=== PATIENT | female | born 1955 | race Caucasian/White ===

== ENCOUNTER → 2017-02-20 | Outpatient (CLI) | payer BC ==
[~2017-02-20] MED LIST: ATEN50TA8 PO
--- NOTE | 2017-02-20 15:38 | MAMMOGRAPHY REPORT ---
BILATERAL DIGITAL SCREENING MAMMOGRAM WITH CAD: 02/20/2017 CLINICAL HISTORY: Routine screening. Patient has no complaints. TECHNIQUE: Current study was also evaluated with a Computer Aided Detection (CAD) system. Bilatera l CC and MLO views were obtained. COMPARISON: Comparison is made to exams dated: 12/15/2015 mammogram and 03/23/2013 mammogram - [facility]. BREAST COMPOSITION: The tissue of both breasts is heterogeneously dense, which may obscure small ma sses. FINDINGS: No suspicious masses, calcifications, or areas of architectural distortion are noted in e ither breast. There has been no significant interval change compared to prior exams. IMPRESSION: ACR BI-RADS CATEGORY 1: NEGATIVE There is no mammographic evidence of malignancy. A 1 year screening mammogram is recommended. The p atient will receive written notification of the results. Approximately 10% of breast cancers are not detected with mammography. A negative mammographic repor t should not delay biopsy if a clinically suggestive mass is present. Marycruz Lee M.D. ah/:02/20/2017 12:15:16 Supervisor Of Guidance And Testing: Lena Lau RT(R)(M), [facility] letter sent: Normal 1/2 BI-RADS Code: ACR BI-RADS Category 1: Negative
== END | disposition home or self-care (01) ==
LOC: C.MAMM 10:37
PROVIDERS: ATTEND Physician Assistant
DX: Z12.31 Encounter for screening mammogram for malignant neoplasm of breast (principal)

== ENCOUNTER → 2017-02-20 | Outpatient (CLI) | payer BC ==
--- NOTE | 2017-02-21 03:42 | EXERCISE STRESS TEST ---
REFERRING PHYSICIAN: Kiersten Wilkes. FINDINGS: The patient exercised using a standard Doug protocol for 9 minutes and 30 seconds. She achieved a maximum heart rate of 164 beats per minute which represented 103% of the maximal age predicted heart rate. Baseline EKG was normal and there were no significant EKG changes during exercise. The patient had no symptoms during exercise. There was a very brief episode of an atrial tachycardia lasting for approximately 3 seconds, that was asymptomatic. The patient's blood pressure response to exercise was hypertensive. Das treadmill score was 9 which represents low risk. IMPRESSION: 1. Hypertensive response to exercise. 2. Self-limited asymptomatic episode of atrial tachycardia lasting 3 seconds. 3. No evidence of inducible ischemia.
== END | disposition home or self-care (01) ==
LOC: C.CPL 09:25
PROVIDERS: ATTEND Physician Assistant
DX: R07.89 Other chest pain (principal); Z12.31 Encounter for screening mammogram for malignant neoplasm of breast

== ENCOUNTER → 2018-01-16 | Outpatient (CLI) | payer BC ==
--- NOTE | 2018-01-16 11:21 | DIAGNOSTIC IMAGING REPORT ---
CHEST 2 VIEWS ROUTINE HISTORY: COUGH COMPARISON: None. FINDINGS: The heart is normal in size. The lungs are mildly hyperexpanded. No pleural fusions. No pneumothorax. Subtle nodular density within the right lung base which measures 2.4 cm. This most likely represents overlying nipple shadow. Otherwise, the lungs are clear. IMPRESSION: 1. No focal lung consolidations to suggest pneumonia. 2. Subtle nodular density within the right lung base which measures 2.4 cm. This most likely represents overlying nipple shadow. However, repeat chest x-ray with nipple markers is recommended for confirmation. These findings were called/faxed to the referring physician's office. Electronically signed by: Ibrahima Bean M.D. 01/16/2018 11:20 AM Dictated Date/Time: 01/16/2018 11:16 AM
--- NOTE | 2018-01-16 13:15 | DIAGNOSTIC IMAGING REPORT ---
CHEST 2 VIEWS ROUTINE CLINICAL HISTORY: 62 years-old Female presenting with STANDARD CHEST X-RAY ABNORMAL, COUGH NOS. TECHNIQUE: PA and lateral views of the chest were obtained. COMPARISON: 01/16/2018 at 11:00 AM. FINDINGS: Atherosclerosis of the aortic arch. Cardiac silhouette normal in size. Lungs mildly hyperinflated. No focal opacity. No large effusion or pneumothorax. Degenerative changes of the thoracic spine. Upper abdomen normal. IMPRESSION: 1. Hyperinflation could suggest underlying emphysema. Otherwise no acute cardiopulmonary disease. 2. The previously suggested nodular opacity at the right lung base is consistent with a nipple shadow. Electronically signed by: Ken Ivory M.D. 01/16/2018 1:14 PM Dictated Date/Time: 01/16/2018 1:13 PM
== END | disposition home or self-care (01) ==
LOC: C.RAD 10:47
PROVIDERS: ATTEND Physician Assistant
DX: R05 Cough (principal); R91.8 Other nonspecific abnormal finding of lung field

== ENCOUNTER 2018-06-03 18:00 | Inpatient (IN) | payer BC ==
[~2018-06-03] VITALS: Ht 157.5 cm; Wt 51.5 kg
[2018-06-03] MEDS ORDERED: SODIUM CHLORIDE 0.9% 1000ML 1,000 ML IV STA (18:14)
[2018-06-03] MEDS ORDERED: ASCO10003 PO ×2 (18:41)
[2018-06-03] MEDS ORDERED: ASPI81TA28 PO ×2 (18:41)
[2018-06-03] MEDS ORDERED: THIA50TA3 PO ×2 (18:41)
[2018-06-03] MEDS ORDERED: VITA1TAB4 PO ×2 (18:41)
[2018-06-03 18:49] LABS: BASO % 0.5 %; BASO ABS # 0.04 K/uL (0-0.2); EOS % 0.5 %; EOS ABS # 0.04 K/uL (0-0.5); HEMATOCRIT 38.4 % (37-47); HEMOGLOBIN 13.2 g/dL (12.0-16.0); IG# 0.01 K/uL (0.00-0.02); LYMPH % 23.4 %; LYMPH ABS # 1.97 K/uL (1.2-3.4); MEAN CELL VOLUME 96.2 fL (80-100); MEAN CORPUSCULAR HEMOGLOBIN 33.1 pg (25-34); MEAN CORPUSCULAR HGB CONC 34.4 g/dl (32-36); MEAN PLATELET VOLUME 10.9 fL (7.4-10.4); MONO % 10.7 %; NEUT % 64.8 %; NEUT ABS # 5.45 K/uL (1.4-6.5); PLATELET COUNT 225 K/uL (130-400); RED CELL DISTRIBUTION WIDTH CV 12.9 % (11.5-14.5); RED CELL DISTRIBUTION WIDTH SD 45.1 fL (36.4-46.3); WHITE BLOOD COUNT 8.41 K/uL (4.8-10.8)
[2018-06-03] MEDS ORDERED: ATEN50TA8 PO ×2 (18:58)
[2018-06-03 19:22] LABS: POTASSIUM 3.6 mmol/L (3.5-5.1)
[2018-06-03 19:23] LABS: ALBUMIN 3.7 gm/dl (3.4-5.0); CALCIUM 9.4 mg/dl (8.5-10.1); CREATININE 0.72 mg/dl (0.60-1.20); TOTAL PROTEIN 7.5 gm/dl (6.4-8.2)
[2018-06-03] MEDS ORDERED: HEPARIN IV LOW DOSE NO BOLUS STA (20:23)
[2018-06-03 20:29] VITALS: O2SAT 97; Ht 157.5 cm; Wt 51.5 kg
--- NOTE | 2018-06-03 20:35 | History and Physical ---
History & Physical Date & Time of Service: Jun 03, 2018 at 20:35 Chief Complaint: Scan Today Found Clot In Stomach, Referred Primary Care Physician: Kiersten Wilkes PA-C History of Present Illness Source: patient, hospital records The patient is a 63-year-old female who presents to the emergency department after outpatient testing showed a possible clot in her abdomen and possible gallbladder cancer. She had been having intermittent stomach pain for over a year that become more constant and severe, accompanied by nausea but no vomiting. She has a history of hepatitis C that was treated successfully 3 years ago. Past Medical/Surgical History Medical Problems: (1) Liver mass (2) Portal vein thrombosis Family History Noncontributory Social History Smoking Status: Current Every Day Smoker Smokeless Tobacco Use: No Alcohol Use: none Drug Use: none Immunizations History of Influenza Vaccine: Unknown History of Tetanus Vaccine?: Unknown History of Pneumococcal: Unknown History of Hepatitis B Vaccine: Unknown Allergies Coded Allergies: No Known Allergies (Unverified , 01/23/10) Home Medications Scheduled Ascorbic Acid (Vitamin C), 1,000 MG PO DAILY Aspirin (Aspirin Ec), 81 MG PO DAILY Atenolol (Tenormin), 50 MG PO DAILY Thiamine Hcl (Vitamin B-1), 50 MG PO DAILY Vitamin E (Vitamin E), 400 INTER.UNIT PO DAILY Review of Systems The patient denies chest pain, palpitations, shortness of breath, dyspnea on exertion, cough, lower extremity swelling, sore throat, fevers, chills, sweats, weight change, vomiting, diarrhea , constipation, blood in urine or stool, dysuria, urinary frequency or urgency, lightheadedness , dizziness, headache, memory loss, loss of consciousness, rash, abnormal bruising or bleeding, imbalance, focal or generalized weakness, numbness or tingling in arms or legs, generalized arthralgias or myalgias, back or neck pain, or night sweats. The review of systems is otherwise negative other than for that already noted above, and at least 10 systems have been reviewed. Physical Exam Vital Signs Date Time Temp Pulse Resp B/P (MAP) Pulse Ox O2 Delivery O2 Flow Rate FiO2 06/03/18 19:32 61 18 142/74 97 06/03/18 18:05 36.7 70 20 174/89 96 Room Air The patient is awake, alert and oriented 3, well developed and well nourished, normocephalic and atraumatic, lying in bed and in no acute distress. HEENT--PERRL, EOMI, mucous membranes and oropharynx dry. Neck--supple. No JVD. No bruits. Thyroid normal, trachea midline, no adenopathy. Heart--normal S1 and S2. No murmurs, rubs or gallops. Lungs--clear bilaterally, no respiratory distress, no accessory muscle use. Abdomen--normal bowel sounds and soft. Mild epigastric and right upper quadrant tendeness. Nondistended. Extremities--no cyanosis or clubbing. No edema. There are good distal pulses b/ l. Dermatologic--normal skin turgor, normal color, no abnormal lymph nodes, no rash. Neurologic--cranial nerves II through XII grossly intact. Rheumatologic--normal range of motion. Psychiatric--normal affect. Diagnostics Laboratory Results Results Past 24 Hours Test 06/03/18 18:37 06/03/18 19:39 Range/Units White Blood Count 8.41 4.8-10.8 K/uL Red Blood Count 3.99 4.2-5.4 M/uL Hemoglobin 13.2 12.0-16.0 g/dL Hematocrit 38.4 37-47 % Mean Corpuscular Volume 96.2 80-100 fL Mean Corpuscular Hemoglobin 33.1 25-34 pg Mean Corpuscular Hemoglobin Concent 34.4 32-36 g/dl Platelet Count 225 130-400 K/uL Mean Platelet Volume 10.9 7.4-10.4 fL Neutrophils (%) (Auto) 64.8 % Lymphocytes (%) (Auto) 23.4 % Monocytes (%) (Auto) 10.7 % Eosinophils (%) (Auto) 0.5 % Basophils (%) (Auto) 0.5 % Neutrophils # (Auto) 5.45 1.4-6.5 K/uL Lymphocytes # (Auto) 1.97 1.2-3.4 K/uL Monocytes # (Auto) 0.90 0.11-0.59 K/uL Eosinophils # (Auto) 0.04 0-0.5 K/uL Basophils # (Auto) 0.04 0-0.2 K/uL RDW Standard Deviation 45.1 36.4-46.3 fL RDW Coefficient of Variation 12.9 11.5-14.5 % Immature Granulocyte % (Auto) 0.1 % Immature Granulocyte # (Auto) 0.01 0.00-0.02 K/uL Prothrombin Time 10.6 9.0-12.0 SECONDS Prothromb Time International Ratio 1.0 0.9-1.1 Sodium Level 137 136-145 mmol/L Potassium Level 3.6 3.5-5.1 mmol/L Chloride Level 104 98-107 mmol/L Carbon Dioxide Level 24 21-32 mmol/L Anion Gap 10.0 3-11 mmol/L Blood Urea Nitrogen 11 7-18 mg/dl Creatinine 0.72 0.60-1.20 mg/dl Est Creatinine Clear Calc Drug Dose 62.5 ml/min Estimated GFR () 102.6 Estimated GFR (Non- 88.5 BUN/Creatinine Ratio 14.8 10-20 Random Glucose 89 70-99 mg/dl Calcium Level 9.4 8.5-10.1 mg/dl Total Bilirubin 1.0 0.2-1 mg/dl Direct Bilirubin 0.7 0-0.2 mg/dl Aspartate Amino Transf (AST/SGOT) 268 15-37 U/L Alanine Aminotransferase (ALT/SGPT) 302 12-78 U/L Alkaline Phosphatase 321 45-117 U/L Total Protein 7.5 6.4-8.2 gm/dl Albumin 3.7 3.4-5.0 gm/dl Lipase 219 73-393 U/L Chemistry Specimen Hemolysis Urine Color YELLOW Urine Appearance CLEAR CLEAR Urine pH 6.5 4.5-7.5 Urine Specific [place] 1.007 1.000-1.030 Urine Protein NEG NEG Urine Glucose (UA) NEG NEG Urine Ketones NEG NEG Urine Occult Blood NEG NEG Urine Nitrite NEG NEG Urine Bilirubin NEG NEG Urine Urobilinogen NEG NEG Urine Leukocyte Esterase NEG NEG Urine Test NEG NEG Diagnostic Radiology Patient Name: DANIEL ROBERTS Unit Number: [id number] Dictated: 06/03/181302 Transcribed: 06/03/181302 EV Printed Date/Time: [~ rep prt dt]/[~ rep prt tm] [~ rep ct labl] - [~ rep ct ivnm] [facility] [place] [address] Dictated: 08/22/18 1303 Transcribed: 06/03/18 1303 EV Printed Date/Time: [~ rep prt dt]/[~ rep prt tm] [~ rep ct labl] - [~ rep ct ivnm] [~ rep ct add3]] CT SCAN OF THE ABDOMEN AND PELVIS WITH IV CONTRAST CLINICAL HISTORY: Generalized abdominal pain. COMPARISON STUDY: No priors. TECHNIQUE: Following the IV administration of 90 cc of Optiray 320, CT scan of the abdomen and pelvis is performed from the lung bases to the proximal femora. Images are reviewed in the axial, sagittal, and coronal planes. IV contrast was administered without complication. A dose lowering technique was utilized adhering to the principles of ALARA. CT DOSE: 261.68 mGycm FINDINGS: Lung bases: The heart is normal in size and without pericardial effusion. The coronary arteries are densely calcified. The lung bases are clear noting dependent atelectasis. Liver: The contrast-enhanced liver is normal in size and contour. There is moderate intrahepatic biliary ductal dilatation identified in the left lobe. Mild biliary ductal dilatation is seen in the right lobe. The left lobe appears atrophic and heterogeneous.. The hepatic veins are patent. The main portal vein and the right portal vein are patent. The left portal vein is thrombosed. Gallbladder: The gallbladder is normal in appearance and common bile duct is normal in caliber. Spleen: Normal in size and attenuation. Pancreas: Unremarkable. Adrenal glands: Unremarkable. Kidneys: The contrast enhanced kidneys are normal in size and without hydronephrosis. The kidneys enhance symmetrically. Abdominal vasculature: The abdominal aorta is normal in course and caliber noting mild atherosclerotic calcification. Bowel: Moderate fecal retention is noted in the right colon. No bowel obstruction is seen. The appendix is well-visualized and normal. Peritoneum: There is no intraperitoneal free air or abdominal ascites. There is a small fat-containing umbilical hernia. Lymphadenopathy: There are prominent lymph nodes in the deandre hepatis and portacaval region. A portacaval node on image #129 measures 9 mm short axis. A gastrohepatic node on image #97 measures 8 mm in short axis. Pelvic viscera: The bladder, uterus, and adnexa are normal as visualized. Skeletal structures: The skeletal structures are osteopenic. Mild lumbosacral spondylosis is observed. No lytic or blastic lesions are seen. IMPRESSION: 1. There is asymmetric intrahepatic biliary ductal dilatation involving the left lobe of the liver as compared to the right. The left lobe appears somewhat diminutive and heterogeneous and the left portal vein is thrombosed. The appearance is highly concerning for an obstructing mass lesion such as a cholangiocarcinoma. GI consultation and ERCP is recommended for further assessment. 2. Prominent lymph nodes in the deandre hepatis and gastrohepatic space are nonspecific but concerning. 3. Moderate fecal retention is noted in the right colon. 4. Additional findings as above. Electronically signed by: Meño Howe M.D. 06/03/2018 1:16 PM Dictated Date/Time: 06/03/2018 1:03 PM The status of this report is Signed. Draft = Not yet reviewed or approved by Radiologist. Signed = Reviewed and approved by Radiologist. <AttendingPhy>Kiersten Wilkes PA-C</AttendingPhy> <FamilyPhy>Kiersten Wilkes PA-C</FamilyPhy> <PrimaryPhy>Kiersten Wilkes PA-C</PrimaryPhy> < UnitNumber>[id number]</UnitNumber> <VisitNumber>[id number]</VisitNumber> < PatientName>DANIEL ROBERTS Cynthia</PatientName> <DateOfBirth>1955</DateOfBirth> < Location>[facility]</Location> <ServiceDate>06/03/18</ServiceDate> <MNE>ESINDI</MNE> <OrderingPhy>Kiersten Wilkes PA-C</OrderingPhy> <OrderingPhyMNE>f rep ord dr seymour</OrderingPhyMNE> <DictatingPhyMNE>f rep dict dr seymour</DictatingPhyMNE> < CCListMNE>f rep ct mne</CCListMNE> <AdmittingPhyMNE>f pt admit dr seymour</ AdmittingPhyMNE> <AttendingPhyMNE>f pt attend dr seymour</AttendingPhyMNE> <ConsultingPhyMNE>f pt consult dr seymour</ConsultingPhyMNE> <FamilyPhyMNE>f pt fam dr seymour</FamilyPhyMNE> <OtherPhyMNE>f pt other dr seymour</OtherPhyMNE> < PrimaryPhyMNE>f pt prim care dr seymour</PrimaryPhyMNE> <ReferringPhyMNE>f pt referring dr seymour</ReferringPhyMNE> Impression Assessment and Plan Possible liver mass/portal vein thrombosis/enlarged lymph nodes/abnormal liver test/history of treated hepatitis C-- Patient will be admitted to the medical floor. NPO NSS + KCl 20 mEq at 100 ML's per hour. Serial CBC with differential, chemistry profile and magnesium level. Begin heparin drip low-dose no bolus. MRCP has been ordered by the ED. Consult gastroenterology Dr. Lizeth Rowe. Pantoprazole 40 mg IV daily. Zofran 4 mg IV every 6 hours as needed. Advanced Directives Existing Advance Directive: No Existing Living Will: No Existing Power of Comb Fixer: No Resuscitation Status VTE Prophylaxis Will order VTE Prophylaxis: Yes Social Service Consult None Apply
[2018-06-03] MEDS ORDERED: HEPARIN 25000 UNIT/500 ML D5W ONE (20:36)
[2018-06-03] MEDS ORDERED: ONDANSETRON INJ 2 MG/ML 2 ML VIAL IV PRN (20:45)
[2018-06-03 20:52] LABS: PTT PATIENT 25.4 SECONDS (21.0-31.0)
[2018-06-03 21:00] VITALS: O2SAT 97
[2018-06-03 21:50] VITALS: BP 151/79; PULSE 63; TEMP 36.5; O2SAT 95
[2018-06-03 23:54] VITALS: BP 152/76; PULSE 61; TEMP 36.4; O2SAT 98
[2018-06-04] VITALS (10 sets, daily range): BP systolic 115–168; BP diastolic 65–78; PULSE 47–65; TEMP 36.3–36.8; O2SAT 95–98
--- NOTE | 2018-06-04 00:22 | EMERGENCY ROOM VISIT NOTE ---
History Report prepared by Lis: Taina Aldrich Under the Supervision of: Dr. Jeffery Jenkins D.O. First contact with patient: 18:08 Chief Complaint: ABNORMAL DIAGNOSTIC TESTING Stated Complaint: SCAN TODAY FOUND CLOT IN STOMACH, REFERRED History of Present Illness The patient is a 63 year old female who presents to the Emergency Room with a referral after an abdominal scan that showed a clot in the patient's abdomen as well as possible gallbladder cancer. The patient states that she got a scan of her stomach because she has been having pain for over a year. She states that this pain has been intermittent for this time but she now states is getting worse. The patient states that she is nauseous but denies any vomiting. She states that she has no fevers or urinary symptoms. She states that sometimes eating helps with her abdominal pain. The patient states she has a history of hypertension but states that she is not on any blood thinners. She also states that she has a history of Hepatitis C but that cleared up about three years ago. Source of History: patient Onset: prior to arrival Position: abdomen (clot ) Modifying Factors (Relieving): eating (relieves abdominal pain ) Associated Symptoms: + nausea, No fevers, No vomiting, No urinary symptoms Review of Systems See HPI for pertinent positives & negatives. A total of 10 systems reviewed and were otherwise negative. Past Medical & Surgical Medical Problems: (1) Hypertension (2) Liver mass (3) Portal vein thrombosis Social History Smoking Status: Current Every Day Smoker Current/Historical Medications Scheduled Ascorbic Acid (Vitamin C), 1,000 MG PO DAILY Aspirin (Aspirin Ec), 81 MG PO DAILY Atenolol (Tenormin), 50 MG PO DAILY Thiamine Hcl (Vitamin B-1), 50 MG PO DAILY Vitamin E (Vitamin E), 400 INTER.UNIT PO DAILY Allergies Coded Allergies: No Known Allergies (Unverified , 01/23/10) Physical Exam Vital Signs Date Time Temp Pulse Resp B/P (MAP) Pulse Ox O2 Delivery O2 Flow Rate FiO2 06/03/18 20:29 97 Room Air 06/03/18 19:32 61 18 142/74 97 06/03/18 18:05 36.7 70 20 174/89 96 Room Air Physical Exam GENERAL: Sitting up in bed, alert, well appearing, well nourished, no distress, non-toxic EYE EXAM: normal conjunctiva. OROPHARYNX: no exudate, no erythema, lips, buccal mucosa, and tongue normal and mucous membranes are moist NECK: supple, no nuchal rigidity, no adenopathy, non-tender LUNGS: Clear to auscultation. Normal chest wall mechanics HEART: no murmurs, S1 normal and S2 normal ABDOMEN: abdomen soft, normo-active bowel sounds, no masses, no rebound or guarding. Faint tenderness in right upper quadrant. BACK: Back is symmetrical on inspection and there is no deformity, no midline tenderness, no CVA tenderness. SKIN: no rashes and no bruising UPPER EXTREMITIES: upper extremities are grossly normal. LOWER EXTREMITIES: No pitting edema. NEURO EXAM: Normal sensorium, cranial nerves II-XII grossly intact, normal speech, no gross weakness of arms, no gross weakness of legs. Medical Decision & Procedures Laboratory Results 06/03/18 18:37 Red Blood Count 3.99, Mean Corpuscular Volume 96.2, Mean Corpuscular Hemoglobin 33.1, Mean Corpuscular Hemoglobin Concent 34.4, Mean Platelet Volume 10.9, Neutrophils (%) (Auto) 64.8, Lymphocytes (%) (Auto) 23.4, Monocytes (%) (Auto) 10.7, Eosinophils (%) (Auto) 0.5, Basophils (%) (Auto) 0.5, Neutrophils # (Auto ) 5.45, Lymphocytes # (Auto) 1.97, Monocytes # (Auto) 0.90, Eosinophils # (Auto ) 0.04, Basophils # (Auto) 0.04 06/03/18 18:37 Test 06/03/18 18:37 06/03/18 19:39 06/03/18 20:01 White Blood Count 8.41 K/uL (4.8-10.8) Red Blood Count 3.99 M/uL (4.2-5.4) Hemoglobin 13.2 g/dL (12.0-16.0) Hematocrit 38.4 % (37-47) Mean Corpuscular Volume 96.2 fL (80-100) Mean Corpuscular Hemoglobin 33.1 pg (25-34) Mean Corpuscular Hemoglobin Concent 34.4 g/dl (32-36) Platelet Count 225 K/uL (130-400) Mean Platelet Volume 10.9 fL (7.4-10.4) Neutrophils (%) (Auto) 64.8 % Lymphocytes (%) (Auto) 23.4 % Monocytes (%) (Auto) 10.7 % Eosinophils (%) (Auto) 0.5 % Basophils (%) (Auto) 0.5 % Neutrophils # (Auto) 5.45 K/uL (1.4-6.5) Lymphocytes # (Auto) 1.97 K/uL (1.2-3.4) Monocytes # (Auto) 0.90 K/uL (0.11-0.59) Eosinophils # (Auto) 0.04 K/uL (0-0.5) Basophils # (Auto) 0.04 K/uL (0-0.2) RDW Standard Deviation 45.1 fL (36.4-46.3) RDW Coefficient of Variation 12.9 % (11.5-14.5) Immature Granulocyte % (Auto) 0.1 % Immature Granulocyte # (Auto) 0.01 K/uL (0.00-0.02) Prothrombin Time 10.6 SECONDS (9.0-12.0) Prothromb Time International Ratio 1.0 (0.9-1.1) Anion Gap 10.0 mmol/L (3-11) Est Creatinine Clear Calc Drug Dose 62.5 ml/min Estimated GFR () 102.6 Estimated GFR (Non- 88.5 BUN/Creatinine Ratio 14.8 (10-20) Calcium Level 9.4 mg/dl (8.5-10.1) Total Bilirubin 1.0 mg/dl (0.2-1) Direct Bilirubin 0.7 mg/dl (0-0.2) Aspartate Amino Transf (AST/SGOT) 268 U/L (15-37) Alanine Aminotransferase (ALT/SGPT) 302 U/L (12-78) Alkaline Phosphatase 321 U/L (45-117) Total Protein 7.5 gm/dl (6.4-8.2) Albumin 3.7 gm/dl (3.4-5.0) Lipase 219 U/L (73-393) Chemistry Specimen Hemolysis Urine Color YELLOW Urine Appearance CLEAR (CLEAR) Urine pH 6.5 (4.5-7.5) Urine Specific [place] 1.007 (1.000-1.030) Urine Protein NEG (NEG) Urine Glucose (UA) NEG (NEG) Urine Ketones NEG (NEG) Urine Occult Blood NEG (NEG) Urine Nitrite NEG (NEG) Urine Bilirubin NEG (NEG) Urine Urobilinogen NEG (NEG) Urine Leukocyte Esterase NEG (NEG) Urine WBC (Auto) 0 /hpf (0-5) Urine RBC (Auto) 0-4 /hpf (0-4) Urine Hyaline Casts (Auto) 0 /lpf (0-5) Urine Epithelial Cells (Auto) 0-5 /lpf (0-5) Urine Bacteria (Auto) NEG (NEG) Urine Test NEG (NEG) Activated Partial Thromboplast Time 25.4 SECONDS (21.0-31.0) Partial Thromboplastin Ratio 1.0 Laboratory results per my review. Medications Administered Medications (Trade) Dose Ordered Sig/Rogelio Route Start Time Stop Time Status Last Admin Dose Admin Sodium Chloride 1,000 ml @ 999 mls/hr Q1H1M STAT IV 06/03/18 18:14 06/03/18 19:14 DC 06/03/18 18:39 999 MLS/HR ED Course ED COURSE: Vital signs were reviewed and showed normal The patients medical record was reviewed The above diagnostic studies were performed and reviewed. ED treatments and interventions as stated above. 1808: The patient was evaluated in room B8. A complete history and physical examination was performed. 1813: Ordered Sodium Chloride 1000 ml @ 999 mls/hr IV. 2022: Ordered Heparin Sodium/Dextrose 1 each. 1939: I updated the patient. She denies any bleeding risk factors. Upon reevaluation, the patient is doing better. I discussed my findings with the patient and she understands and agrees with the treatment plan. 2004: Based on the patients age, coexisting illnesses, exam and lab findings the decision to treat as an inpatient was made. The patient remained stable while under my care. The patient will be evaluated for further management by Dr. [facility]. Medical Decision Differential diagnoses includes but is not limited to gastritis, peptic ulcer disease, GERD, gallbladder disease, pancreatitis, small bowel obstruction, acute coronary syndrome, pericarditis, ischemic bowel, irritable bowel disease, irritable bowel syndrome, appendicitis, diverticulitis, malignancy, hernia, urinary tract infection, torsion, [/ectopic (if female)], perforation, trauma, infectious. Patient is a 63-year-old female who presents the ER for right upper quadrant pain that has been present intermittently for the past year. She notes it is getting worse. CT abdomen pelvis shows portal venous thrombus with likely cholangiocarcinoma. Patient had a mild transaminitis. CBC and BMP were unremarkable. Lipase was normal. Bilirubin was not elevated. Patient has no bleeding risk factors. I did place her on heparin. I discussed the case with GI. They recommended n.p.o. an MRI. Updated and discussed with internal medicine. Patient was updated at bedside and admitted to internal medicine with portal venous thrombus which is likely secondary to cholangiocarcinoma. Patient was monitored closely while on the heparin drip. Medication Reconcilliation Current Medication List: was personally reviewed by me Blood Pressure Screening Patient's blood pressure: Normal blood pressure Impression Primary Impression: Portal vein thrombosis Additional Impressions: Transaminitis Cholangiocarcinoma Critical Care I have personally spent 35 minutes of critical care time in the direct management of this patient. This includes bedside care, interpretation of diagnostic studies, and testing, discussion with consultants, patient, and family members, and other required patient management activities. This 35 minutes is in excess of all separately billable procedures. Scribe Attestation The scribe's documentation has been prepared under my direction and personally reviewed by me in its entirety. I confirm that the note above accurately reflects all work, treatment, procedures, and medical decision making performed by me. Departure Information Dispostion Being Evaluated By Hospitalist Kiersten Campos PA-C (PCP) Patient Instructions My [facility] Problem Qualifiers
[2018-06-04] MEDS: NSS + 20MEQ KCL 1000ML 1,000 ML IV SCH ×3 (00:57→18:55)
[2018-06-04] MEDS ORDERED: HEPARIN IV LOW DOSE NO BOLUS SCH (01:00)
[2018-06-04] MEDS ORDERED: HEPARIN 25,000 UNIT/500ML D5W 500 ML IV SCH (01:45)
[2018-06-04] MEDS ORDERED: HEPARIN IV BOLUS 3,000 UNIT in SYRINGE 0 ML IV ONE (04:00)
[2018-06-04 06:16] LABS: BASO % 0.7 %; BASO ABS # 0.04 K/uL (0-0.2); EOS ABS # 0.12 K/uL (0-0.5); HEMATOCRIT 37.3 % (37-47); HEMOGLOBIN 12.6 g/dL (12.0-16.0); IG# 0.01 K/uL (0.00-0.02); LYMPH ABS # 1.94 K/uL (1.2-3.4); MEAN CELL VOLUME 97.4 fL (80-100); MEAN CORPUSCULAR HEMOGLOBIN 32.9 pg (25-34); MEAN CORPUSCULAR HGB CONC 33.8 g/dl (32-36); MEAN PLATELET VOLUME 11.1 fL (7.4-10.4); MONO % 13.3 %; MONO ABS # 0.78 K/uL (0.11-0.59); NEUT % 50.8 %; NEUT ABS # 2.99 K/uL (1.4-6.5); PLATELET COUNT 223 K/uL (130-400); RED CELL DISTRIBUTION WIDTH CV 13.1 % (11.5-14.5); RED CELL DISTRIBUTION WIDTH SD 46.7 fL (36.4-46.3); WHITE BLOOD COUNT 5.88 K/uL (4.8-10.8)
[2018-06-04 06:39] LABS: PTT PATIENT 106.7 SECONDS (21.0-31.0)
[2018-06-04 06:57] LABS: ALBUMIN 2.9 gm/dl (3.4-5.0); CALCIUM 8.5 mg/dl (8.5-10.1); CREATININE 0.62 mg/dl (0.60-1.20); POTASSIUM 3.9 mmol/L (3.5-5.1); TOTAL PROTEIN 6.4 gm/dl (6.4-8.2)
--- NOTE | 2018-06-04 07:25 | DIAGNOSTIC IMAGING REPORT ---
MRCP HISTORY: 63 years-old Female eval for a biliary stricture acute central abdominal pain with nausea. History of skin cancer. COMPARISON: CT abdomen and pelvis of same day TECHNIQUE: MRCP without the use of IV contrast was obtained according to institutional protocol. 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 Imaged lung bases and inferior cardiac chambers are unremarkable. The spleen, pancreas and kidneys appear grossly unremarkable as well. No aortic aneurysm. Previously described thrombosed left portal vein is better characterized on comparison CT. There is left greater than right hepatic lobe intrahepatic biliary ductal dilation redemonstrated with tortuous morphology of the intrahepatic biliary ductal dilation within the left hepatic lobe. There is an ill-defined irregular area of intermediate signal within the left hepatic lobe measuring approximately 1.5 x 2.3 x 1.3 cm, image 9 series 4 and image 6 series 5. The gallbladder is unremarkable. No cholelithiasis or choledocholithiasis. Common bile duct is normal, 4 mm in diameter. Pancreatic duct appears to be within normal limits. IMPRESSION: 1. Intrahepatic biliary ductal dilation, asymmetrically pronounced within the left hepatic lobe again noted. Additionally, there is an ill-defined area of intermediate signal within the left hepatic lobe measuring up to approximately 2.3 cm which may reflect an underlying mass. Again, these findings are suspicious for possible mass forming cholangiocarcinoma. Further evaluation with GI consultation and ERCP is recommended. 2. No cholelithiasis or choledocholithiasis. 3. Normal caliber of the common bile duct. 4. Thrombosed left portal vein again seen, better appreciated on comparison CT. The above report was generated using voice recognition software. It may contain grammatical, syntax or spelling errors. Electronically signed by: Ramo Armas M.D. 06/04/2018 7:24 AM Dictated Date/Time: 06/04/2018 7:10 AM
--- NOTE | 2018-06-04 09:42 | Gastrointestinal Consultation ---
Gastrointestinal Consultation Date of Consultation: Jun 04, 2018 Attending Physician: Sarkis Quintero Consulting Physician: Lizeth Rowe Reason for Consultation: Liver mass, PVT History of Present Illness Patient is a 63 year old female seen for liver mass and PVT. She has hx of HCV genotype 1, successfully treated w Harvoni x 8 weeks back in 2014. She has been c/o periumbilical area abd pain x 1 year, low appetite, mild nausea but denies vomiting or weight loss. She went to see PCP and CT abd/pelvis obtained yesterday which showed asymmetri intrahepatic biliary ductal dilation, involving L lobe of liver compared to R. L lobe diminutive and heterogenous, there's L PVT. Appearance highly concerning for possible cholangiocarcinoma. There're also lymphadenopathies around deandre hepatic and gastrohepatic space areas. She was recommended then to come to ED for further evaluation. MRCP then obtained to f/u CT findings, again confirming the intrahepatic biliary ductal dilation and L PVT, also L lobe liver has 2.3cm mass suspicious for cholangiocarcinoma. No cholelithiasis or choledocholithiasis, CBD normal. Her LFTs: Tbili 2.6, AST/ALT and Alk phos in 300s. She denies any fever, chills, CP , SOB, jaundice, abd distension, leg edema. Overnight she had been started on Heparin gtt for L PVT and also made NPO. Past Medical/Surgical History Medical Problems: (1) Cholangiocarcinoma Status: Acute (2) Transaminitis Status: Acute Past Medical History: See above. Past Surgical History: None Social History Smoking Status: Current Every Day Smoker Alcohol Use: none Drug Use: none Allergies Coded Allergies: No Known Allergies (Unverified , 01/23/10) Current Medications Home Meds and Scripts Medications Dose Route/Sig Max Daily Dose Days Date Category Aspirin Ec (Aspirin) 81 Mg Tab 81 Mg PO DAILY 06/03/18 Reported Vitamin E 400 Unit Tab 400 Inter.unit PO DAILY 06/03/18 Reported Vitamin B-1 (Thiamine HCl) 50 Mg Tab 50 Mg PO DAILY 06/03/18 Reported Vitamin C (Ascorbic Acid) 1,000 Mg Tab 1,000 Mg PO DAILY 06/03/18 Reported Tenormin (Atenolol) 50 Mg Tab 50 Mg PO DAILY 01/23/10 Reported Review of Systems Constitutional: No fever, No chills, No weight loss Respiratory: No cough, No shortness of breath Cardiac: No chest pain Abdomen: + pain, + nausea, + constipation, No vomiting, No GI bleeding Skin: No rash, No itch, No jaundice Physical Exam Date Time Temp Pulse Resp B/P (MAP) Pulse Ox O2 Delivery O2 Flow Rate FiO2 06/04/18 07:09 36.8 65 20 135/65 (88) 98 Room Air 06/04/18 05:36 Room Air 06/04/18 04:03 36.6 58 18 133/70 (91) 96 Room Air 06/03/18 23:54 36.4 61 18 152/76 (101) 98 Room Air 06/03/18 21:50 36.5 63 18 151/79 (103) 95 Room Air 06/03/18 21:00 52 18 137/72 97 Room Air 06/03/18 20:29 97 Room Air 06/03/18 19:32 61 18 142/74 97 06/03/18 18:05 36.7 70 20 174/89 96 Room Air General Appearance: WD/WN, no apparent distress Eyes: normal inspection, PERRL, EOMI Neck: supple, no JVD, trachea midline Respiratory/Chest: normal breath sounds, no respiratory distress, no accessory muscle use Cardiovascular: regular rate, rhythm, no gallop, no murmur Abdomen: normal bowel sounds, non tender, soft Extremities: normal inspection, no pedal edema, no calf tenderness Neurologic/Psych: alert, normal mood/affect, oriented x 3 Skin: normal color, no jaundice, no rash Laboratory Results Last 24 Hours Test 06/03/18 18:37 06/03/18 19:39 06/03/18 20:01 06/04/18 02:49 White Blood Count 8.41 K/uL Red Blood Count 3.99 M/uL Hemoglobin 13.2 g/dL Hematocrit 38.4 % Mean Corpuscular Volume 96.2 fL Mean Corpuscular Hemoglobin 33.1 pg Mean Corpuscular Hemoglobin Concent 34.4 g/dl Platelet Count 225 K/uL Mean Platelet Volume 10.9 fL Neutrophils (%) (Auto) 64.8 % Lymphocytes (%) (Auto) 23.4 % Monocytes (%) (Auto) 10.7 % Eosinophils (%) (Auto) 0.5 % Basophils (%) (Auto) 0.5 % Neutrophils # (Auto) 5.45 K/uL Lymphocytes # (Auto) 1.97 K/uL Monocytes # (Auto) 0.90 K/uL Eosinophils # (Auto) 0.04 K/uL Basophils # (Auto) 0.04 K/uL RDW Standard Deviation 45.1 fL RDW Coefficient of Variation 12.9 % Immature Granulocyte % (Auto) 0.1 % Immature Granulocyte # (Auto) 0.01 K/uL Prothrombin Time 10.6 SECONDS 10.7 SECONDS Prothromb Time International Ratio 1.0 1.0 Sodium Level 137 mmol/L Potassium Level 3.6 mmol/L Chloride Level 104 mmol/L Carbon Dioxide Level 24 mmol/L Anion Gap 10.0 mmol/L Blood Urea Nitrogen 11 mg/dl Creatinine 0.72 mg/dl Est Creatinine Clear Calc Drug Dose 62.5 ml/min Estimated GFR () 102.6 Estimated GFR (Non- 88.5 BUN/Creatinine Ratio 14.8 Random Glucose 89 mg/dl Calcium Level 9.4 mg/dl Total Bilirubin 1.0 mg/dl Direct Bilirubin 0.7 mg/dl Aspartate Amino Transf (AST/SGOT) 268 U/L Alanine Aminotransferase (ALT/SGPT) 302 U/L Alkaline Phosphatase 321 U/L Total Protein 7.5 gm/dl Albumin 3.7 gm/dl Lipase 219 U/L Chemistry Specimen Hemolysis Urine Color YELLOW Urine Appearance CLEAR Urine pH 6.5 Urine Specific [place] 1.007 Urine Protein NEG Urine Glucose (UA) NEG Urine Ketones NEG Urine Occult Blood NEG Urine Nitrite NEG Urine Bilirubin NEG Urine Urobilinogen NEG Urine Leukocyte Esterase NEG Urine WBC (Auto) 0 /hpf Urine RBC (Auto) 0-4 /hpf Urine Hyaline Casts (Auto) 0 /lpf Urine Epithelial Cells (Auto) 0-5 /lpf Urine Bacteria (Auto) NEG Urine Test NEG Activated Partial Thromboplast Time 25.4 SECONDS 34.0 SECONDS Partial Thromboplastin Ratio 1.0 1.3 Test 06/04/18 05:57 06/04/18 09:20 White Blood Count 5.88 K/uL Red Blood Count 3.83 M/uL Hemoglobin 12.6 g/dL Hematocrit 37.3 % Mean Corpuscular Volume 97.4 fL Mean Corpuscular Hemoglobin 32.9 pg Mean Corpuscular Hemoglobin Concent 33.8 g/dl Platelet Count 223 K/uL Mean Platelet Volume 11.1 fL Neutrophils (%) (Auto) 50.8 % Lymphocytes (%) (Auto) 33.0 % Monocytes (%) (Auto) 13.3 % Eosinophils (%) (Auto) 2.0 % Basophils (%) (Auto) 0.7 % Neutrophils # (Auto) 2.99 K/uL Lymphocytes # (Auto) 1.94 K/uL Monocytes # (Auto) 0.78 K/uL Eosinophils # (Auto) 0.12 K/uL Basophils # (Auto) 0.04 K/uL RDW Standard Deviation 46.7 fL RDW Coefficient of Variation 13.1 % Immature Granulocyte % (Auto) 0.2 % Immature Granulocyte # (Auto) 0.01 K/uL Activated Partial Thromboplast Time 106.7 SECONDS Partial Thromboplastin Ratio 4.1 Sodium Level 141 mmol/L Potassium Level 3.9 mmol/L Chloride Level 111 mmol/L Carbon Dioxide Level 23 mmol/L Anion Gap 8.0 mmol/L Blood Urea Nitrogen 8 mg/dl Creatinine 0.62 mg/dl Est Creatinine Clear Calc Drug Dose 71.5 ml/min Estimated GFR () 110.4 Estimated GFR (Non- 95.3 BUN/Creatinine Ratio 12.5 Random Glucose 93 mg/dl Calcium Level 8.5 mg/dl Magnesium Level 2.3 mg/dl Total Bilirubin 2.6 mg/dl Direct Bilirubin 2.2 mg/dl Aspartate Amino Transf (AST/SGOT) 367 U/L Alanine Aminotransferase (ALT/SGPT) 309 U/L Alkaline Phosphatase 316 U/L Total Protein 6.4 gm/dl Albumin 2.9 gm/dl Impression Patient is a 63 year old female w Hx of HCV previously treated successfully with Harvoni, been c/o periumbilical abd pain, nausea, low appetite for about a year. Recent workup showed elevated LFTs, CT abd/pelvis and MRCP significant for L liver mass (2.3cm), intrahepatic biliary obstruction and L portal vein thrombosis - findings concerning for cholangiocarcinoma. Plan - Hold Heparin gtt now; obtain stat aPTT - Keep NPO for EUS/ERCP in the OR by Dr. Rowe today - Continue Protonix 40mg IV BID. - Will repeat HCV RNA (last checked in 2016) - ok to obtain in AM labs. I saw and evaluated the patient. She presented with 1 year of epigastric discomfort. Over the past few months she has noted a decrease in her appetite but has had no weight loss. An imaging study was performed yesterday showing a potential mass in the region of the left hepatic lobe obstructing both the right hepatic system and left hepatic system. In addition there appears to be this in the region of the left hepatic vein. Physical examination No obvious distress, mild scleral icterus Mild epigastric tenderness with no rebound or peritoneal signs Impression: Patient presenting with elevated liver associated enzymes in the setting of imaging which is suggestive of a mass within the biliary system. Based on the appearance we would favor a cholangiocarcinoma as the most likely diagnosis. Given her elevated liver enzymes we will proceed with upper endoscopy, endoscopic ultrasound and ERCP this afternoon. Given the MRI we will most likely be able to access the right biliary tree and will be unable to access the left biliary tree. I am not certain of the role of anticoagulation in this patient and would suggest that we obtain a hematology consultation guidance with this question. The patient and I have discussed the risks of the procedures to include bleeding, infection, perforation, pancreatitis, failed biliary cannulation, and insufficient cellularity from a fine-needle aspiration. Plan Upper endoscopy Endoscopic ultrasound with fine-needle aspiration ERCP with likely stent placement to the right hepatic lobe
[2018-06-04 10:09] LABS: PTT PATIENT 47.1 SECONDS (21.0-31.0)
[2018-06-04] MEDS: PANTOprazole INJ 40 MG in SYRINGE 0 ML IV SCH (10:51)
[2018-06-04] MEDS ORDERED: ATROPINE SULFATE 0.1 MG/ML 5ML SYR IV PRN (12:15)
[2018-06-04] MEDS ORDERED: ONDANSETRON INJ 2 MG/ML 2 ML VIAL IV PRN (12:15)
[2018-06-04] MEDS ORDERED: FENTANYL CITRATE INJ 50 MCG/1 ML 2 ML VIAL IV PRN (12:15)
[2018-06-04] MEDS ORDERED: FENTANYL CITRATE INJ 50 MCG/1 ML 2 ML VIAL ONE ×2 (12:18→14:17)
[2018-06-04] MEDS ORDERED: ONDANSETRON INJ 2 MG/ML 2 ML VIAL ONE (12:18)
[2018-06-04] MEDS ORDERED: LIDOCAINE HCL 2% 2 ML VIAL (20MG/ML) ONE (12:18)
[2018-06-04] MEDS ORDERED: DEXAMETHASONE SOD INJ 4 MG/ML VIAL ONE (12:18)
[2018-06-04] MEDS ORDERED: PROPOFOL IV EMULSION 10 MG/ML 20 ML VIAL ONE (12:18)
[2018-06-04] MEDS ORDERED: NEOSTIGMINE METHYLSULFATE 5 MG/5 ML SYR ONE (12:18)
[2018-06-04] MEDS ORDERED: GLYCOPYRROLATE INJ 0.2 MG/ML VIAL ONE (12:18)
[2018-06-04] MEDS ORDERED: MIDAZOLAM HCL 1 MG/ML 2ML VIAL ONE (12:18)
[2018-06-04] MEDS ORDERED: CIPROFLOXACIN 400MG / 200ML D5W IV SCH (12:30)
[2018-06-04] MEDS ORDERED: INDOMETHACIN 50 MG SUPP PR ONE (12:30)
--- NOTE | 2018-06-04 12:41 | History & Physical Bridge Note ---
H&P Re-Evaluation Bridge Note: I have examined the patient, reviewed the History & Physical and in the interval since the performance of the History & Physical I have noted the following changes of clinical significance: No changes noted
--- NOTE | 2018-06-04 12:57 | GI REPORT ---
Patient Name: Evelin Suarez Procedure Date: 06/04/2018 12:45 PM Date of : 1955 Admit Type: Inpatient Age: 63 Gender: Female Attending MD: Lizeth Rowe DO Procedure: Upper GI endoscopy Providers: Lizeth Rowe DO Referring MD: Kiersten Wilkes Indications: Epigastric abdominal pain, Abnormal CT of the GI tract, Abnormal MRI of the GI tract Medicines: General Anesthesia Complications: No immediate complications. Estimated blood loss: Minimal. Estimated Blood Loss: Estimated blood loss was minimal. Procedure: Pre-Anesthesia Assessment: - Prior to the procedure, a History and Physical was performed, and patient medications, allergies and sensitivities were reviewed. The patient's tolerance of previous anesthesia was reviewed. - The risks and benefits of the procedure and the sedation options and risks were discussed with the patient. All questions were answered and informed consent was obtained. - Patient identification and proposed procedure were verified prior to the procedure by the physician, the nurse and the dermatology specialist. The procedure was verified in the procedure room. - Pre-procedure physical examination revealed no contraindications to sedation. - ASA Grade Assessment: III - A patient with severe systemic disease. - The anesthesia plan was to use general anesthesia. - Immediately prior to administration of medications, the patient was re-assessed for adequacy to receive sedatives. - The heart rate, respiratory rate, oxygen saturations, blood pressure, adequacy of pulmonary ventilation, and response to care were monitored throughout the procedure. - The physical status of the patient was re-assessed after the procedure. After obtaining informed consent, the endoscope was passed under direct vision. Throughout the procedure, the patient's blood pressure, pulse, and oxygen saturations were monitored continuously. The scope was introduced through the mouth, and advanced to the third part of duodenum. The upper GI endoscopy was accomplished without difficulty. The patient tolerated the procedure well. Findings: The examined esophagus was normal. The Z-line was regular and was found 36 cm from the incisors. Diffuse mild inflammation characterized by erythema and granularity was found in the entire examined stomach. Biopsies were taken with a cold forceps for histology. Estimated blood loss was minimal. The examined duodenum was normal. Impression: - Normal esophagus. - Z-line regular, 36 cm from the incisors. - Gastritis. Biopsied. - Normal examined duodenum. Recommendation: - Perform an upper endoscopic ultrasound (UEUS) today. - Await pathology results. Lizeth Rowe D.O. Lizeth Rowe, 06/04/2018 12:56:34 PM This report has been signed electronically. Note Initiated On: 06/04/2018 12:45 PM Number of Addenda: 0 I attest to the content of the Intraoperative Record and orders documented therein, exceptions below {[id number]}
[2018-06-04] MEDS ORDERED: ROCURONIUM BROMIDE 10 MG/ML 5 ML VIAL ONE (13:05)
[2018-06-04] MEDS ORDERED: EpHEDrine SULFATE 50MG/5ML SYR ONE (13:30)
--- NOTE | 2018-06-04 14:26 | [facility] Post Operative Brief Note ---
Immediate Operative Summary Operative Date Jun 04, 2018. Pre-Operative Diagnosis Suspected cholangiocarcinoma Post-Operative Diagnosis Stricture of the common hepatic duct Several gastrohepatic ligment LN Gastritis Procedure(s) Performed Endoscopic Retrograde Cholangiopancreatogram; Upper Endoscopic Ultrasonography Surgeon Dr. Rowe Cell Stripper Final Surgeon(s) none Estimated Blood Loss 0 ml Findings Consistent with Post-Op Diagnosis Specimens 1) Stomach 2) Gastrohepatic ligament FNA 3) Gordon cytology (common hepatic duct) Drains Bilairy stent placed Anesthesia Type General Complication(s) none Disposition Accompanied Pt To Recover: no Disposition: Recovery Room / PACU
--- NOTE | 2018-06-04 14:48 | GI REPORT ---
Patient Name: Evelin Suarez Procedure Date: 06/04/2018 12:56 PM Date of : 1955 Admit Type: Inpatient Age: 63 Gender: Female Attending MD: Lizeth Rowe DO Procedure: Upper EUS Providers: Lizeth Rowe DO Referring MD: Sarkis Daniel Pa-c Indications: Suspected mass in liver on CT scan, Suspected mass in liver on MRI, Obstruction of bile duct on MRI Medicines: General Anesthesia Complications: No immediate complications. Estimated blood loss: Minimal. Estimated Blood Loss: Estimated blood loss was minimal. Procedure: Pre-Anesthesia Assessment: - Prior to the procedure, a History and Physical was performed, and patient medications, allergies and sensitivities were reviewed. The patient's tolerance of previous anesthesia was reviewed. - The risks and benefits of the procedure and the sedation options and risks were discussed with the patient. All questions were answered and informed consent was obtained. - Patient identification and proposed procedure were verified prior to the procedure by the physician, the nurse and the hogshead filler. The procedure was verified in the pre-procedure area in the procedure room. - Pre-procedure physical examination revealed no contraindications to sedation. - ASA Grade Assessment: III - A patient with severe systemic disease. - After reviewing the risks and benefits, the patient was deemed in satisfactory condition to undergo the procedure. - The anesthesia plan was to use general anesthesia. - Immediately prior to administration of medications, the patient was re-assessed for adequacy to receive sedatives. - The heart rate, respiratory rate, oxygen saturations, blood pressure, adequacy of pulmonary ventilation, and response to care were monitored throughout the procedure. - The physical status of the patient was re-assessed after the procedure. After obtaining informed consent, the endoscope was passed under direct vision. Throughout the procedure, the patient's blood pressure, pulse, and oxygen saturations were monitored continuously. The Scope was introduced through the mouth, and advanced to the second part of duodenum. The upper EUS was accomplished without difficulty. The patient tolerated the procedure well. The Endosonoscope was introduced through the mouth, and advanced to the second part of duodenum. Findings: Endosonographic Finding : Minimal hyperechoic material consistent with sludge was visualized endosonographically in the gallbladder. There was no sign of significant endosonographic abnormality in the common bile duct. The CBD was 6.5 mm in diameter. No stones, no biliary sludge and ducts of normal caliber were identified. I was unable to identify a stricture or mass. Intrahepatid ductal dilation seen in both lobes o the liver. I was unable to see a masss despite a careful evaluation of the parencyhma and bile duct. There was no sign of significant endosonographic abnormality in the entire pancreas. No masses, no cysts, the pancreatic duct was thin in caliber. There was no sign of significant endosonographic abnormality in the left adrenal gland. No adrenal gland enlargement was identified. A few enlarged lymph nodes were visualized in the gastrohepatic ligament (level 18). The largest measured 17 mm by 10 mm in maximal cross-sectional diameter. The nodes were oval, hypoechoic and had well defined margins. Fine needle aspiration was performed. Color Doppler imaging was utilized prior to needle puncture to confirm a lack of significant vascular structures within the needle path. Five passes were made with the 22 gauge needle using a transgastric approach. A stylet was used. A leak operator paraffin plant was present and performed a preliminary cytologic examination. Final cytology results are pending. Estimated blood loss was minimal. Impression: - Hyperechoic material consistent with sludge was visualized endosonographically in the gallbladder. - Normal common bile duct. - Normal pancreas. - Normal left adrenal gland. - A few enlarged lymph nodes were visualized in the gastrohepatic ligament (level 18). Fine needle aspiration performed. Recommendation: - Perform an ERCP today. - Await cytology results. Lizeth Rowe D.O. Lizeth Rowe DO 06/04/2018 2:47:40 PM This report has been signed electronically. Note Initiated On: 06/04/2018 12:56 PM Number of Addenda: 0 I attest to the content of the Intraoperative Record and orders documented therein, exceptions below {[id number]}
--- NOTE | 2018-06-04 14:53 | Progress Note ---
Subjective Date of Service: Jun 04, 2018. Subjective Pt evaluation today including: conversation w/ patient, physical exam, lab review, review of studies, conversation w/ [facility] operations consultant, review of inpatient medication list Pain: minimal pain PO Intake: NPO Voiding: no voiding problems patient laying in bed comfortably today no complaints, just had questions regarding MRCP and plan reviewed labs, bili up to 2.6, AST, ALT and Alk phos all up slightly in 300s reviewed MRCP, intrahepatic ductal dilation and left lobe mass, 2.3cm, possible cholangiocarcinoma discussed with Elayne Barnes, plan for ERCP and EUS today discussed in detail with the patient the imaging findings and lab results, explained that we would consider this cancer until proven otherwise explained that the diagnosis may take some time, pathology results could be delayed asked about what to do it this is cancer, explained that oncology would be involved once we had a diagnosis reviewed ERCP and EUS results, common hepatic duct stricture, stent placed after brushings taken FNA to lymph nodes seen on the EUS Problem List Medical Problems: (1) Cholangiocarcinoma Status: Acute (2) Transaminitis Status: Acute Review of Systems Constitutional: + weakness, + fatigue Abdomen: + pain (mild, intermittent), + nausea (occasional) All Other Systems: Reviewed and Negative Medications Current Inpatient Medications Medications (Trade) Dose Ordered Sig/Rogelio Route Start Time Stop Time Status Last Admin Dose Admin Ondansetron HCl (Zofran Inj) 4 mg Q6H PRN IV 06/03/18 20:45 07/03/18 20:44 Pantoprazole Sodium 40 mg/ Syringe 10 ml @ 5 mls/min DAILY@11 IV 06/04/18 11:00 06/07/18 11:01 06/04/18 10:51 5 MLS/MIN Potassium Chloride/Sodium Chloride 1,000 ml @ 100 mls/hr Q10H IV 06/03/18 22:00 07/03/18 20:32 06/04/18 10:50 100 MLS/HR Ondansetron HCl (Zofran Inj) 4 mg ONE PRN IV 06/04/18 12:15 06/04/18 18:00 Atropine Sulfate (Atropine Sulfate 0.1mg/ml Inj) 0.5 mg Q1M PRN IV 06/04/18 12:15 06/04/18 18:00 Fentanyl Citrate (Fentanyl Inj) 25 mcg Q5M PRN IV 06/04/18 12:15 06/04/18 18:00 Ciprofloxacin/ Dextrose (Cipro / D5W) 400 mg PREOP IV 06/04/18 12:30 06/04/18 16:00 06/04/18 13:00 400 MG Ciprofloxacin/ Dextrose 400 mg/ Prmx 200 ml @ 100 mls/hr Q12 IV 06/04/18 21:00 06/07/18 20:59 UNV Objective Vital Signs Date Time Temp Pulse Resp B/P (MAP) Pulse Ox O2 Delivery O2 Flow Rate FiO2 06/04/18 11:54 36.4 58 16 149/74 (99) 96 Room Air 06/04/18 10:38 Room Air 06/04/18 07:09 36.8 65 20 135/65 (88) 98 Room Air 06/04/18 05:36 Room Air 06/04/18 04:03 36.6 58 18 133/70 (91) 96 Room Air 06/03/18 23:54 36.4 61 18 152/76 (101) 98 Room Air 06/03/18 21:50 36.5 63 18 151/79 (103) 95 Room Air 06/03/18 21:00 52 18 137/72 97 Room Air 06/03/18 20:29 97 Room Air 06/03/18 19:32 61 18 142/74 97 06/03/18 18:05 36.7 70 20 174/89 96 Room Air Physical Exam General Appearance: WD/WN, no apparent distress Eyes: normal inspection, EOMI, sclerae normal ENT: normal ENT inspection, hearing grossly normal, pharynx normal Neck: supple, no adenopathy, no JVD, trachea midline Respiratory/Chest: chest non-tender, lungs clear, normal breath sounds, no respiratory distress, no accessory muscle use Cardiovascular: regular rate, rhythm, no edema, no gallop, no JVD, no murmur Abdomen: normal bowel sounds, non tender, soft, no organomegaly Extremities: normal range of motion, non-tender, normal inspection, no pedal edema, no calf tenderness, pelvis stable 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/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, no motor/sensory deficits, alert, normal mood/affect, oriented x 3 Skin: normal color, warm/dry, no rash Laboratory Results Last 24 Hours Test 06/03/18 18:37 06/03/18 19:39 06/03/18 20:01 06/04/18 02:49 White Blood Count 8.41 K/uL Red Blood Count 3.99 M/uL Hemoglobin 13.2 g/dL Hematocrit 38.4 % Mean Corpuscular Volume 96.2 fL Mean Corpuscular Hemoglobin 33.1 pg Mean Corpuscular Hemoglobin Concent 34.4 g/dl Platelet Count 225 K/uL Mean Platelet Volume 10.9 fL Neutrophils (%) (Auto) 64.8 % Lymphocytes (%) (Auto) 23.4 % Monocytes (%) (Auto) 10.7 % Eosinophils (%) (Auto) 0.5 % Basophils (%) (Auto) 0.5 % Neutrophils # (Auto) 5.45 K/uL Lymphocytes # (Auto) 1.97 K/uL Monocytes # (Auto) 0.90 K/uL Eosinophils # (Auto) 0.04 K/uL Basophils # (Auto) 0.04 K/uL RDW Standard Deviation 45.1 fL RDW Coefficient of Variation 12.9 % Immature Granulocyte % (Auto) 0.1 % Immature Granulocyte # (Auto) 0.01 K/uL Prothrombin Time 10.6 SECONDS 10.7 SECONDS Prothromb Time International Ratio 1.0 1.0 Sodium Level 137 mmol/L Potassium Level 3.6 mmol/L Chloride Level 104 mmol/L Carbon Dioxide Level 24 mmol/L Anion Gap 10.0 mmol/L Blood Urea Nitrogen 11 mg/dl Creatinine 0.72 mg/dl Est Creatinine Clear Calc Drug Dose 62.5 ml/min Estimated GFR () 102.6 Estimated GFR (Non- 88.5 BUN/Creatinine Ratio 14.8 Random Glucose 89 mg/dl Calcium Level 9.4 mg/dl Total Bilirubin 1.0 mg/dl Direct Bilirubin 0.7 mg/dl Aspartate Amino Transf (AST/SGOT) 268 U/L Alanine Aminotransferase (ALT/SGPT) 302 U/L Alkaline Phosphatase 321 U/L Total Protein 7.5 gm/dl Albumin 3.7 gm/dl Lipase 219 U/L Chemistry Specimen Hemolysis Urine Color YELLOW Urine Appearance CLEAR Urine pH 6.5 Urine Specific [place] 1.007 Urine Protein NEG Urine Glucose (UA) NEG Urine Ketones NEG Urine Occult Blood NEG Urine Nitrite NEG Urine Bilirubin NEG Urine Urobilinogen NEG Urine Leukocyte Esterase NEG Urine WBC (Auto) 0 /hpf Urine RBC (Auto) 0-4 /hpf Urine Hyaline Casts (Auto) 0 /lpf Urine Epithelial Cells (Auto) 0-5 /lpf Urine Bacteria (Auto) NEG Urine Test NEG Activated Partial Thromboplast Time 25.4 SECONDS 34.0 SECONDS Partial Thromboplastin Ratio 1.0 1.3 Test 06/04/18 05:57 06/04/18 09:20 06/04/18 12:00 06/04/18 14:23 White Blood Count 5.88 K/uL Red Blood Count 3.83 M/uL Hemoglobin 12.6 g/dL Hematocrit 37.3 % Mean Corpuscular Volume 97.4 fL Mean Corpuscular Hemoglobin 32.9 pg Mean Corpuscular Hemoglobin Concent 33.8 g/dl Platelet Count 223 K/uL Mean Platelet Volume 11.1 fL Neutrophils (%) (Auto) 50.8 % Lymphocytes (%) (Auto) 33.0 % Monocytes (%) (Auto) 13.3 % Eosinophils (%) (Auto) 2.0 % Basophils (%) (Auto) 0.7 % Neutrophils # (Auto) 2.99 K/uL Lymphocytes # (Auto) 1.94 K/uL Monocytes # (Auto) 0.78 K/uL Eosinophils # (Auto) 0.12 K/uL Basophils # (Auto) 0.04 K/uL RDW Standard Deviation 46.7 fL RDW Coefficient of Variation 13.1 % Immature Granulocyte % (Auto) 0.2 % Immature Granulocyte # (Auto) 0.01 K/uL Activated Partial Thromboplast Time 106.7 SECONDS 47.1 SECONDS 27.0 SECONDS Partial Thromboplastin Ratio 4.1 1.8 1.0 Sodium Level 141 mmol/L Potassium Level 3.9 mmol/L Chloride Level 111 mmol/L Carbon Dioxide Level 23 mmol/L Anion Gap 8.0 mmol/L Blood Urea Nitrogen 8 mg/dl Creatinine 0.62 mg/dl Est Creatinine Clear Calc Drug Dose 71.5 ml/min Estimated GFR () 110.4 Estimated GFR (Non- 95.3 BUN/Creatinine Ratio 12.5 Random Glucose 93 mg/dl Calcium Level 8.5 mg/dl Magnesium Level 2.3 mg/dl Total Bilirubin 2.6 mg/dl Direct Bilirubin 2.2 mg/dl Aspartate Amino Transf (AST/SGOT) 367 U/L Alanine Aminotransferase (ALT/SGPT) 309 U/L Alkaline Phosphatase 316 U/L Total Protein 6.4 gm/dl Albumin 2.9 gm/dl Prothrombin Time 10.3 SECONDS Prothromb Time International Ratio 1.0 Assessment and Plan 63 yo female with ongoing intermittent abdominal pain and nausea, no weight loss , who was found to have elevated LFT and liver mass on CT as outpatient - Liver mass with associated elevated liver enzymes, possible cholangiocarcinoma MRCP showed 2.3cm left lobe liver mass with dilated intrahepatic biliary ducts ERCP today with stricture of common hepatic duct, stent placed, brushings sent for pathology EUS showed several gastrohepatic LN, FNA done, sent for pathology bili up slightly to 2.6, other enzymes in the 300's, not much change will repeat levels tomorrow, should go down with stent CEA ordered, follow up on pathology results patient may eat - Portal vein thrombosis continue on heparin drip, will discuss with GI about anticoagulation - H/o hepatitis C, treated with Harvoni completed treatment several years ago, will check Hepatitic C levels tomorrow - HTN: chronic, stable on Atenolol
--- NOTE | 2018-06-04 14:54 | DIAGNOSTIC IMAGING REPORT ---
ERCP BILIARY DUCTAL CLINICAL HISTORY: 63 years-old Female presenting with EXPLORE DUCTS. TECHNIQUE: Fluoroscopy was provided for endoscopic retrograde cholangiopancreatography. 12 fluoroscopic image(s) recorded. COMPARISON: MRCP from yesterday. FINDINGS: Procedure: An endoscope projects over the descending duodenum. A guidewire was introduced into the common bile duct and the common bile duct was opacified. The gallbladder is opacified normally. The guidewire was then advanced into the left biliary ductal system. Opacification of the ducts demonstrates intrahepatic biliary ductal dilatation. Focal narrowing near the liver hilum. Subsequently, a plastic common bile duct stent was placed terminating in one of the left intrahepatic ducts. Peritoneal spillage: No evidence of peritoneal spillage of contrast. Extrahepatic bile ducts: The common bile duct is normal in course and caliber. There are no filling defects seen within the common bile duct to suggest a stone. Contrast extends into the small bowel. Intrahepatic bile ducts: Intrahepatic biliary ductal dilatation. Fluoroscopy dosage (mGy): 55.99. Fluoroscopy time: 387.1 seconds. Number or time of fluoroscopic spot images: 0. IMPRESSION: Intrahepatic biliary ductal dilatation with focal stenosis in the liver hilum concerning for mass lesion such as cholangiocarcinoma. Placement of a plastic common bile duct stent terminating in one of the left intrahepatic ducts. Electronically signed by: Ken Ivory M.D. 06/04/2018 2:53 PM Dictated Date/Time: 06/04/2018 2:48 PM
--- NOTE | 2018-06-04 15:07 | GI REPORT ---
Patient Name: Evelin Suarez Procedure Date: 06/04/2018 1:44 PM Date of : 1955 Admit Type: Inpatient Age: 63 Gender: Female Attending MD: Lizeth Rowe DO Procedure: ERCP Providers: Lizeth Rowe DO Referring MD: Sarkis Daniel Pa-c Indications: Abnormal MRCP, Elevated liver enzymes Medicines: Monitored Anesthesia Care, Cipro 400 mg IV Complications: No immediate complications. Estimated blood loss: Minimal. Estimated Blood Loss: Estimated blood loss was minimal. Procedure: Pre-Anesthesia Assessment: - Prior to the procedure, a History and Physical was performed, and patient medications, allergies and sensitivities were reviewed. The patient's tolerance of previous anesthesia was reviewed. - The risks and benefits of the procedure and the sedation options and risks were discussed with the patient. All questions were answered and informed consent was obtained. - Patient identification and proposed procedure were verified prior to the procedure by the physician, the nurse and the director business systems. The procedure was verified in the procedure room. - Pre-procedure physical examination revealed no contraindications to sedation. - ASA Grade Assessment: III - A patient with severe systemic disease. - After reviewing the risks and benefits, the patient was deemed in satisfactory condition to undergo the procedure. - The anesthesia plan was to use general anesthesia. - Immediately prior to administration of medications, the patient was re-assessed for adequacy to receive sedatives. - The heart rate, respiratory rate, oxygen saturations, blood pressure, adequacy of pulmonary ventilation, and response to care were monitored throughout the procedure. - The physical status of the patient was re-assessed after the procedure. After obtaining informed consent, the scope was passed under direct vision. Throughout the procedure, the patient's blood pressure, pulse, and oxygen saturations were monitored continuously. The scope was introduced through the mouth, and advanced to the duodenum and used to inject contrast into the bile duct. The ERCP was accomplished without difficulty. The patient tolerated the procedure well. Findings: The cloth examiner hand film was normal. The esophagus was successfully intubated under direct vision. The scope was advanced to a normal major papilla in the descending duodenum without detailed examination of the pharynx, larynx and associated structures, and upper GI tract. The upper GI tract was grossly normal. The bile duct was deeply cannulated with the short-nosed traction sphincterotome and guidewire. Contrast was injected. I personally interpreted the bile duct images. Contrast extended to the hepatic ducts. The right main hepatic duct and right intrahepatic branches were moderately dilated and diffusely dilated, secondary to a stricture. The largest diameter was 7 mm. The common hepatic duct contained a single segmental stenosis 30 mm in length. The appeared to completly obstruct the left hepatic lobe and a component of the right. Biliary sphincterotomy was made with a monofilament traction (standard) sphincterotome using ERBE electrocautery. The sphincterotomy oozed blood. Cells for cytology were obtained by brushing. I attempted to pass a second wire into the right biliary tree, however, I could not get one to pass to the far right side (likley related to obstruction) despite numerous attempts and wire changes (0.035 in Acrobat 2, 0.025 in Angled acrobat 2, and a 0.035 in Angled Delta wire. One 8.5 Fr by 15 cm biliary stent with a single external flap and a single internal flap was placed 15 cm into the common bile duct. Dark bile flowed through the stent and right hepatic system appeared to be draining well. The stent was in good position. Indomethacin 100 mg was given via suppository to decrease the risk of post-ERCP pancreatitis (PEP). The endoscope was withdrawn from the patient. Impression: - Stricture of the common hepatic duct, would favor a cholangiocarcinoma based on the appearance. Most likely a type 3b based on the appearance of the cholangiogram. - A biliary sphincterotomy was performed. - One biliary stent was placed into the right biliary biliary tree. - Indomethacin given to decrease risk of post-ERCP pancreatitis. Recommendation: - Avoid aspirin and nonsteroidal anti-inflammatory medicines for 1 week. - Clear liquid diet today. - Use broad spectrum antibiotics for 5 days. - Await cytology results. - Refer to a surgeon at appointment to be scheduled to determine candidacy for surgery (nazanin) in addition to medical oncology. Lizeth Rowe D.O. Lizeth Rowe DO 06/04/2018 3:06:51 PM This report has been signed electronically. Note Initiated On: 06/04/2018 1:44 PM Number of Addenda: 0 I attest to the content of the Intraoperative Record and orders documented therein, exceptions below {[id number]}
--- NOTE | 2018-06-04 15:08 | Anesthesiology Progress Note ---
Anesthesia Post Op Note Date & Time Jun 04, 2018 at 15:08 Vital Signs Pain Intensity: 0 Vital Signs Past 12 Hours Date Time Temp Pulse Resp B/P (MAP) Pulse Ox O2 Delivery O2 Flow Rate FiO2 06/04/18 15:05 64 18 177/67 6 Room Air 06/04/18 14:55 51 18 177/74 100 Oxymask 10 06/04/18 14:45 51 18 178/64 99 Oxymask 10 06/04/18 14:37 36 70 14 167/79 96 Oxymask 10 06/04/18 11:54 36.4 58 16 149/74 (99) 96 Room Air 06/04/18 10:38 Room Air 06/04/18 07:09 36.8 65 20 135/65 (88) 98 Room Air 06/04/18 05:36 Room Air 06/04/18 04:03 36.6 58 18 133/70 (91) 96 Room Air Notes Mental Status: alert / awake / arousable, participated in evaluation Pt Amnestic to Procedure: Yes Nausea / Vomiting: adequately controlled Pain: adequately controlled Airway Patency, RR, SpO2: stable & adequate BP & HR: stable & adequate Hydration State: stable & adequate Anesthetic Complications: no major complications apparent
[2018-06-04] MEDS ORDERED: MAGIC SWIZZLE PO PRN (16:00)
[2018-06-04] MEDS ORDERED: LIDOCAINE HCL 2% VISCOUS SOLN 60 ML, DiphenhydrAMINE HCL SYRUP 150 MG, ALUMINUM/MAGNESI... MT PRN ×4 (16:15)
--- NOTE | 2018-06-04 16:31 | Progress Note ---
Progress Note Date of Service Jun 04, 2018. Progress Note The patient underwent upper endoscopy, endoscopic ultrasound and ERCP this afternoon. She was found to have 2 lymph nodes within the gastrohepatic ligament for which we did a fine-needle aspiration. Unfortunately, we could not identify a primary tumor during the endoscopic ultrasound today. An ERCP was performed and notable for a stricture at the common hepatic duct which completely occluded the left system. We were able to place a biliary stent into the right hepatic system. Recommendations Continue prophylactic antibiotics for 5 days CEA, CA-19-9 and alpha-fetoprotein ordered Hepatic protocol MRI with gadolinium ordered Consider an oncology consult to determine if anticoagulation is needed for this patient. Would hold heparin until 24 hours given the recent biliary sphincterotomy. Clear liquid diet tonight
[2018-06-04] MEDS ORDERED: NICOTINE 7 MG/24 HR TDSY TD STA (19:35)
[2018-06-04] MEDS ORDERED: GADOXETATE DISODIUM (NON-WT BASED PROCEDURE) IV PRN (20:00)
--- NOTE | 2018-06-04 20:53 | DIAGNOSTIC IMAGING REPORT ---
MRI LIVER COMBO CLINICAL HISTORY: Ductal dilatation. Possible hepatic mass. Abnormal CT scan. TECHNIQUE: Imaging was performed prior to and following IV contrast injection. The patient was scanned before and after the administration of 10 cc of intravenous Eovist. COMPARISON STUDY: CT scan dated 06/03/2018 FINDINGS: No splenic masses are visualized. No renal masses are visualized. There is intrahepatic biliary ductal dilatation, predominantly left-sided. No gallbladder abnormalities are visualized. The common bile duct and pancreatic duct are of normal caliber. There is a biliary enteric stent present. There is suspected portal vein thrombosis. No pancreatic masses are visualized. The entire left lobe of the liver demonstrates abnormal signal. There is ductal dilatation. There is also abnormal enhancement involving the posterior medial right lobe of the liver. Although a discrete mass is not visualized, the findings are concerning for an obstructing hilar lesion such as a cholangiocarcinoma. IMPRESSION: 1. Asymmetric intrahepatic biliary ductal dilatation involving predominantly the left lobe 2. Markedly heterogeneous left lobe enhancement, and abnormal signal and enhancement within the posterior medial right lobe. Suspected portal vein thrombosis. 3. Although a discrete mass is not visualized, the findings are very concerning for an obstructing hilar lesion such as a cholangiocarcinoma. Electronically signed by: Meek Clarke M.D. 06/04/2018 8:52 PM Dictated Date/Time: 06/04/2018 8:40 PM
[2018-06-04] MEDS: CIPROFLOXACIN / D5W 400 MG in PREMIXED IN D5W 200 ML IV SCH (21:51)
[2018-06-05 04:29] VITALS: BP 108/62; PULSE 70; TEMP 36.6; O2SAT 95
[2018-06-05] MEDS: NSS + 20MEQ KCL 1000ML 1,000 ML IV SCH ×2 (04:59→16:00)
[2018-06-05 05:54] LABS: BASO % 0.4 %; BASO ABS # 0.03 K/uL (0-0.2); EOS % 0.6 %; EOS ABS # 0.05 K/uL (0-0.5); HEMATOCRIT 37.1 % (37-47); HEMOGLOBIN 12.4 g/dL (12.0-16.0); IG# 0.02 K/uL (0.00-0.02); LYMPH % 23.8 %; MEAN CELL VOLUME 98.1 fL (80-100); MEAN CORPUSCULAR HEMOGLOBIN 32.8 pg (25-34); MEAN CORPUSCULAR HGB CONC 33.4 g/dl (32-36); MEAN PLATELET VOLUME 11.5 fL (7.4-10.4); MONO % 10.9 %; MONO ABS # 0.87 K/uL (0.11-0.59); NEUT ABS # 5.11 K/uL (1.4-6.5); PLATELET COUNT 214 K/uL (130-400); RED CELL DISTRIBUTION WIDTH CV 13.1 % (11.5-14.5); RED CELL DISTRIBUTION WIDTH SD 46.6 fL (36.4-46.3); WHITE BLOOD COUNT 7.98 K/uL (4.8-10.8)
[2018-06-05 06:22] LABS: ALBUMIN 2.6 gm/dl (3.4-5.0); CREATININE 0.66 mg/dl (0.60-1.20); POTASSIUM 4.5 mmol/L (3.5-5.1)
[2018-06-05 06:34] VITALS: BP 113/67; PULSE 63; TEMP 36.4; O2SAT 97
[2018-06-05] MEDS ORDERED: NICOTINE 7 MG/24 HR TDSY TD SCH (08:00)
[2018-06-05] MEDS: CIPROFLOXACIN / D5W 400 MG in PREMIXED IN D5W 200 ML IV SCH (10:11)
[2018-06-05] MEDS: PANTOprazole INJ 40 MG in SYRINGE 0 ML IV SCH (10:11)
[2018-06-05 11:18] VITALS: BP 139/75; PULSE 63; TEMP 36.4; O2SAT 99
[2018-06-05] MEDS ORDERED: POLYETHYLENE (MIRALAX) 17 GM PACK PO STA (11:24)
--- NOTE | 2018-06-05 12:13 | Gastroenterology Progress Note ---
Progress Note Date of Service: Jun 05, 2018 Subjective Pt evaluation today including: conversation w/ patient, physical exam, chart review, lab review, review of inpatient medication list Pt did well overnight. Less abd pain, no n/v. LFTs trending down. Hasn't been seen by Heme/Onc yet. Review of Systems Constitutional: No fever, No chills Respiratory: No cough, No shortness of breath Cardiac: No chest pain Abdomen: + pain (better), No nausea, No vomiting Skin: No rash, No itch, No jaundice Medications Current Inpatient Medications Medications (Trade) Dose Ordered Sig/Rogeloi Route Start Time Stop Time Status Last Admin Dose Admin Ondansetron HCl (Zofran Inj) 4 mg Q6H PRN IV 06/03/18 20:45 07/03/18 20:44 06/04/18 15:53 4 MG Pantoprazole Sodium 40 mg/ Syringe 10 ml @ 5 mls/min DAILY@11 IV 06/04/18 11:00 06/07/18 11:01 06/05/18 10:11 5 MLS/MIN Potassium Chloride/Sodium Chloride 1,000 ml @ 100 mls/hr Q10H IV 06/03/18 22:00 07/03/18 20:32 06/05/18 04:59 100 MLS/HR Ciprofloxacin/ Dextrose 400 mg/ Prmx 200 ml @ 100 mls/hr Q12H IV 06/04/18 22:00 06/05/18 21:59 06/05/18 10:11 100 MLS/HR Lidocaine HCl/ Diphenhydramine HCl/Al Hydroxide/ Mg Hydroxide/ Glycerin/Barcode TID PRN MT 06/04/18 16:15 07/04/18 16:14 06/04/18 20:28 5 ML Nicotine (Nicoderm Cq 7 Mg Patch) 1 patch QAM TD 06/05/18 08:00 07/05/18 07:59 Miscellaneous (Remove Nicoderm Patch) 1 ea HS PRN N/A 06/04/18 21:00 07/04/18 20:59 Gadoxetate Disodium (Eovist (Non-Wt Based Procedure)) 10 ml UD PRN IV 06/04/18 20:00 06/08/18 19:59 Objective Vital Signs Date Time Temp Pulse Resp B/P (MAP) Pulse Ox O2 Delivery O2 Flow Rate FiO2 06/05/18 11:18 36.4 63 16 139/75 (96) 99 Room Air 06/05/18 10:40 Room Air 06/05/18 06:34 36.4 63 18 113/67 (82) 97 Room Air 06/05/18 04:29 36.6 70 18 108/62 (77) 95 Room Air 06/05/18 00:52 Room Air 06/04/18 23:31 36.6 57 20 115/67 (83) 96 Room Air 06/04/18 20:00 36.6 56 18 151/67 (95) 96 Room Air 06/04/18 18:28 36.7 54 18 149/74 (99) 95 Room Air 06/04/18 17:00 36.5 48 18 140/74 (96) 96 Room Air 06/04/18 16:30 36.4 51 18 153/78 (103) 98 Room Air 06/04/18 16:00 36.3 47 18 158/78 (104) 96 Room Air 06/04/18 15:30 Room Air 06/04/18 15:30 36.4 49 16 168/77 (107) 98 Room Air 06/04/18 15:15 36.8 52 18 173/74 97 Room Air 06/04/18 15:05 64 18 177/67 96 Room Air 06/04/18 14:55 51 18 177/74 100 Oxymask 10 06/04/18 14:45 51 18 178/64 99 Oxymask 10 06/04/18 14:37 36 70 14 167/79 96 Oxymask 10 Physical Exam General Appearance: WD/WN, no apparent distress Eyes: normal inspection, PERRL, EOMI Neck: supple, no JVD, trachea midline Respiratory/Chest: normal breath sounds, no respiratory distress, no accessory muscle use Cardiovascular: regular rate, rhythm, no gallop, no murmur Abdomen: normal bowel sounds, non tender, soft Extremities: normal inspection, no pedal edema, no calf tenderness Neurologic/Psych: alert, normal mood/affect, oriented x 3 Skin: normal color, no jaundice, no rash Laboratory Results Last 24 Hours Test 06/04/18 16:23 06/05/18 00:03 06/05/18 05:25 Carcinoembryonic Antigen 1.2 ng/ml White Blood Count 7.98 K/uL Red Blood Count 3.78 M/uL Hemoglobin 12.4 g/dL Hematocrit 37.1 % Mean Corpuscular Volume 98.1 fL Mean Corpuscular Hemoglobin 32.8 pg Mean Corpuscular Hemoglobin Concent 33.4 g/dl Platelet Count 214 K/uL Mean Platelet Volume 11.5 fL Neutrophils (%) (Auto) 64.0 % Lymphocytes (%) (Auto) 23.8 % Monocytes (%) (Auto) 10.9 % Eosinophils (%) (Auto) 0.6 % Basophils (%) (Auto) 0.4 % Neutrophils # (Auto) 5.11 K/uL Lymphocytes # (Auto) 1.90 K/uL Monocytes # (Auto) 0.87 K/uL Eosinophils # (Auto) 0.05 K/uL Basophils # (Auto) 0.03 K/uL RDW Standard Deviation 46.6 fL RDW Coefficient of Variation 13.1 % Immature Granulocyte % (Auto) 0.3 % Immature Granulocyte # (Auto) 0.02 K/uL Prothrombin Time 10.9 SECONDS Prothromb Time International Ratio 1.0 Activated Partial Thromboplast Time 20.0 SECONDS Partial Thromboplastin Ratio 0.8 Sodium Level 140 mmol/L Potassium Level 4.5 mmol/L Chloride Level 111 mmol/L Carbon Dioxide Level 22 mmol/L Anion Gap 7.0 mmol/L Blood Urea Nitrogen 8 mg/dl Creatinine 0.66 mg/dl Est Creatinine Clear Calc Drug Dose 67.2 ml/min Estimated GFR () 108.2 Estimated GFR (Non- 93.4 BUN/Creatinine Ratio 11.9 Random Glucose 76 mg/dl Calcium Level 8.0 mg/dl Magnesium Level 2.0 mg/dl Total Bilirubin 1.1 mg/dl Direct Bilirubin 0.6 mg/dl Aspartate Amino Transf (AST/SGOT) 163 U/L Alanine Aminotransferase (ALT/SGPT) 218 U/L Alkaline Phosphatase 265 U/L Total Protein 6.0 gm/dl Albumin 2.6 gm/dl Assessment and Plan Patient is a 63 year old female w Hx of HCV previously treated successfully with Harvoni, been c/o periumbilical abd pain, nausea, low appetite for about a year. Recent workup showed elevated LFTs, CT abd/pelvis and MRCP significant for L liver mass (2.3cm), intrahepatic biliary obstruction and L portal vein thrombosis - findings concerning for cholangiocarcinoma. EGD/EUS/ERCP done 06/04/18: + gastritis, had FNA of lymph nodes, no primary tumor can be identified, common hepatic duct was occluded and a biliary stent was placed on R hepatic system. Endoscopic brushing of CBD w/o malignant cells. Stomach bx and lymph nodes FNA pending. MRI liver 06/04/18: 1. Asymmetric intrahepatic biliary ductal dilatation involving predominantly the left lobe 2. Markedly heterogeneous left lobe enhancement, and abnormal signal and enhancement within the posterior medial right lobe. Suspected portal vein thrombosis. 3. Although a discrete mass is not visualized, the findings are very concerning for an obstructing hilar lesion such as a cholangiocarcinoma. Plan - Continue Cipro IV x total 5 days - Pending CEA, CA 19-9, AFP - Awaiting Heme/Onc eval for possible cholangiocarcinoma and also to commend on anticoagulation use for L PVT. - Referral for Surgical Oncology placed; awaiting outpt appt. - Continue Protonix 40mg PO BID - Advance diet as tolerated. - Will repeat HCV RNA (last checked in 2015) - ok to obtain in AM labs. I saw and evaluated the patient. We discussed the ERCP and endoscopic ultrasound results at great length. It appears that she is responding well to the biliary stent as her liver enzymes and bilirubin have improved significantly since placement yesterday. Based on the appearance of the cholangiogram and MRI I suspect the patient has an underlying cholangiocarcinoma. I would suggest that she have a hematology oncology evaluation in addition to a surgical oncology evaluation. As compared to be done as an outpatient over the next few weeks. To suggest the patient be discharged on ciprofloxacin twice daily for a total of 5 days. If the pathology results from yesterday are negative we may need to consider a repeat ERCP with spyglass procedure to try and get directed biopsies from the bile duct.
[2018-06-05] MEDS ORDERED: CPR500 PO ×2 (14:05)
[2018-06-05] MEDS ORDERED: PANT40TA2 PO ×2 (14:05)
--- NOTE | 2018-06-05 14:16 | Discharge Instructions ---
Discharge Instructions Date of Service Jun 05, 2018. Admission Reason for Admission: Liver Mass, Portal Vein Thrombosis Discharge Discharge Diagnosis / Problem: Hepatic duct stricture, liver mass, portal vein thrombosis Discharge Goals Goal(s): Therapeutic intervention, Specific goals (follow up with gastroenterology, oncology) Activity Recommendations Activity Limitations: resume your previous activity . Instructions / Follow-Up Instructions / Follow-Up Medications: - PROTONIX: 40mg twice a day for one month then once a day - CIPROFLOXACIN: take 500mg twice a day, next dose this evening, take 8 more doses Elevated liver enzymes, mass in liver/bile ducts ERCP performed yesterday by Dr. Rowe, placed a stent in hepatic duct, liver enzymes coming down, near normal Endoscopic ultrasound with biopsy of lymph nodes, pathology results still pending as we discussed, the findings on imaging are concerning for cholangiocarcinoma but the pathology would provide definitive answer you need to follow up with gastroenterology and oncology next week for further discussion and treatment planning you may be referred to surgical oncology for their opinion about surgical options you will take the Cipro twice a day for 4 days to prevent infection of bile ducts Portal Vein thrombosis Dr. Palafox does not recommend anticoagulation, small left portal vein FOLLOW UP - Dr. Palafox, [facility] oncology/hematology, in one week, his office will call you, - Kiersten Wilkes PA-C in 2 weeks, call for hospital follow up Current Hospital Diet Patient's current hospital diet: Low Fiber Diet, Low Fat Diet Discharge Diet Recommended Diet: Regular Diet Procedures Procedures Performed: Endoscopic Retrograde Cholangiopancreatogram; Upper Endoscopic Ultrasonography Pending Studies Studies pending at discharge: yes List of pending studies: tumor markers Medical Emergencies . Who to Call and When: Medical Emergencies: If at any time you feel your situation is an emergency, please call 911 immediately. . Non-Emergent Contact Non-Emergency issues call your: Primary Care Provider, Oncologist Call Non-Emergent contact if: you have any medication questions . . "Provider Documentation" section prepared by Bam León. . [place] Drug Monitoring Program Search Results: no issues identified
[2018-06-05 14:21] VITALS: BP 139/75; PULSE 63; TEMP 36.4; O2SAT 99
[2018-06-05 15:18] VITALS: BP 181/71; PULSE 61; TEMP 36.8; O2SAT 96
[2018-06-05] MEDS ORDERED: ENOX80IN SQ ×2 (16:18)
--- NOTE | 2018-06-05 16:40 | Medical Consult ---
Consultation Date of Consultation: Jun 05, 2018. Attending Physician: Sarkis Mccollum M.D. Reason for Consultation: Possible cholangiocarcinoma History of Present Illness Ms. Suarez is a 63 yo F new to the consulting Medical Oncology service. She has PMH significant for prior Hep C infection s/p treatment 3 yrs prior (IVDU in 1970s), and HTN. She reported to family physician more recently c/o epigastric/RUQ pain x 1 yr associated with nausea. In past few weeks prior to admission, she was also noting night sweats. A few days prior to admission, she noted dark urine and light BM. When she reported her symptoms, she was set up for CT scan which showed possible portal vein thrombosis so she was referred to ER. At [facility], she had MRCP on 06/03 which showed intrahepatic biliary dilatation with abnormal appearance of left lobe of liver, mass forming in liver not r/o, concerning for cholangiocarcinoma. On 06/04/18, she had an ERCP with stent placed at biliary hilum intrahepatically where mass suspicioned to be. The area was brushed and LN biopsy of deandre hepatis done. Brushing nondiagnostic, LN biopsy pending. She had a follow up liver MRI on 06/04/18. There again was concern for hilar cholangiocarcinoma on this scan with obstruction type changes in left lobe. Again noted was portal vein thrombosis, for which patient is on heparin gtt. Following biliary stent yesterday, her LFTs are trending down. Additional history obtained from the patient at bedside. She reports feeling overall fair. She denies fatigue, weight loss. She states her RUQ pain is still present. She is unsure if her urine is starting to look lockstitch cup setter. She did not have issues with vomiting or bowel irregularity. She denies headache or dizziness. She denies cough, dyspnea. She occasionally has short periods of palpitations not associated with other symptoms. She denies skin pruritus or noticing jaundiced appearance. She drinks ETOH 1 drink 3x/wk, most of adult life was 1 ETOH drink daily. She smokes 1/2 or less per day since teenage yrs off and on. 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 Past Medical/Surgical History Medical Problems: (1) Cholangiocarcinoma Status: Acute (2) Transaminitis Status: Acute Social History Smoking Status: Current Every Day Smoker Smokeless Tobacco Use: No Alcohol Use: none Drug Use: none Allergies Coded Allergies: No Known Allergies (Unverified , 01/23/10) Current Inpatient Medications Current Inpatient Medications Medications (Trade) Dose Ordered Sig/Rogelio Route Start Time Stop Time Status Last Admin Dose Admin Ondansetron HCl (Zofran Inj) 4 mg Q6H PRN IV 06/03/18 20:45 07/03/18 20:44 06/04/18 15:53 4 MG Potassium Chloride/Sodium Chloride 1,000 ml @ 100 mls/hr Q10H IV 06/03/18 22:00 07/03/18 20:32 06/05/18 16:00 100 MLS/HR Ciprofloxacin/ Dextrose 400 mg/ Prmx 200 ml @ 100 mls/hr Q12H IV 06/04/18 22:00 06/05/18 21:59 06/05/18 10:11 100 MLS/HR Lidocaine HCl/ Diphenhydramine HCl/Al Hydroxide/ Mg Hydroxide/ Glycerin/Barcode TID PRN MT 06/04/18 16:15 07/04/18 16:14 06/04/18 20:28 5 ML Nicotine (Nicoderm Cq 7 Mg Patch) 1 patch QAM TD 06/05/18 08:00 07/05/18 07:59 Miscellaneous (Remove Nicoderm Patch) 1 ea HS PRN N/A 06/04/18 21:00 07/04/18 20:59 Gadoxetate Disodium (Eovist (Non-Wt Based Procedure)) 10 ml UD PRN IV 06/04/18 20:00 06/08/18 19:59 Pantoprazole Sodium (Protonix Tab) 40 mg BID PO 06/05/18 20:00 07/05/18 19:59 Review of Systems Constitutional: + sweats, No fever, No chills, No weight loss, No fatigue Respiratory: No cough, No shortness of breath Cardiovascular: No chest pain, No edema Abdomen: + pain, + nausea, No vomiting, No diarrhea, No constipation Genitourinary - Female: + problem reported (se HPI) Neurologic: No vertigo Integumentary: + color change, No itch Physical Exam Date Time Temp Pulse Resp B/P (MAP) Pulse Ox O2 Delivery O2 Flow Rate FiO2 06/05/18 15:18 36.8 61 16 181/71 (107) 96 Room Air 06/05/18 14:21 36.4 63 16 99 Room Air 06/05/18 11:18 36.4 63 16 139/75 (96) 99 Room Air 06/05/18 10:40 Room Air 06/05/18 06:34 36.4 63 18 113/67 (82) 97 Room Air 06/05/18 04:29 36.6 70 18 108/62 (77) 95 Room Air 06/05/18 00:52 Room Air 06/04/18 23:31 36.6 57 20 115/67 (83) 96 Room Air 06/04/18 20:00 36.6 56 18 151/67 (95) 96 Room Air 06/04/18 18:28 36.7 54 18 149/74 (99) 95 Room Air 06/04/18 17:00 36.5 48 18 140/74 (96) 96 Room Air 06/04/18 16:30 36.4 51 18 153/78 (103) 98 Room Air General Appearance: WD/WN, no apparent distress ENT: hearing grossly normal Neck: supple, no adenopathy Respiratory/Chest: lungs clear, normal breath sounds Cardiovascular: regular rate, rhythm, no edema Abdomen/GI: normal bowel sounds, soft, + tenderness (RUQ) Extremities/Musculoskelatal: no calf tenderness Neurologic/Psych: alert, oriented x 3 Skin: no rash, + jaundice Laboratory Results Last 24 Hours Test 06/04/18 16:23 06/05/18 00:03 06/05/18 05:25 Carcinoembryonic Antigen 1.2 ng/ml White Blood Count 7.98 K/uL Red Blood Count 3.78 M/uL Hemoglobin 12.4 g/dL Hematocrit 37.1 % Mean Corpuscular Volume 98.1 fL Mean Corpuscular Hemoglobin 32.8 pg Mean Corpuscular Hemoglobin Concent 33.4 g/dl Platelet Count 214 K/uL Mean Platelet Volume 11.5 fL Neutrophils (%) (Auto) 64.0 % Lymphocytes (%) (Auto) 23.8 % Monocytes (%) (Auto) 10.9 % Eosinophils (%) (Auto) 0.6 % Basophils (%) (Auto) 0.4 % Neutrophils # (Auto) 5.11 K/uL Lymphocytes # (Auto) 1.90 K/uL Monocytes # (Auto) 0.87 K/uL Eosinophils # (Auto) 0.05 K/uL Basophils # (Auto) 0.03 K/uL RDW Standard Deviation 46.6 fL RDW Coefficient of Variation 13.1 % Immature Granulocyte % (Auto) 0.3 % Immature Granulocyte # (Auto) 0.02 K/uL Prothrombin Time 10.9 SECONDS Prothromb Time International Ratio 1.0 Activated Partial Thromboplast Time 20.0 SECONDS Partial Thromboplastin Ratio 0.8 Sodium Level 140 mmol/L Potassium Level 4.5 mmol/L Chloride Level 111 mmol/L Carbon Dioxide Level 22 mmol/L Anion Gap 7.0 mmol/L Blood Urea Nitrogen 8 mg/dl Creatinine 0.66 mg/dl Est Creatinine Clear Calc Drug Dose 67.2 ml/min Estimated GFR () 108.2 Estimated GFR (Non- 93.4 BUN/Creatinine Ratio 11.9 Random Glucose 76 mg/dl Calcium Level 8.0 mg/dl Magnesium Level 2.0 mg/dl Total Bilirubin 1.1 mg/dl Direct Bilirubin 0.6 mg/dl Aspartate Amino Transf (AST/SGOT) 163 U/L Alanine Aminotransferase (ALT/SGPT) 218 U/L Alkaline Phosphatase 265 U/L Total Protein 6.0 gm/dl Albumin 2.6 gm/dl CT abd/pelvis from 06/03/18: 1. There is asymmetric intrahepatic biliary ductal dilatation involving the left lobe of the liver as compared to the right. The left lobe appears somewhat diminutive and heterogeneous and the left portal vein is thrombosed. The appearance is highly concerning for an obstructing mass lesion such as a cholangiocarcinoma. GI consultation and ERCP is recommended for further assessment. 2. Prominent lymph nodes in the deandre hepatis and gastrohepatic space are nonspecific but concerning. 3. Moderate fecal retention is noted in the right colon. MRCP from 06/03/18: 1. Intrahepatic biliary ductal dilation, asymmetrically pronounced within the left hepatic lobe again noted. Additionally, there is an ill-defined area of intermediate signal within the left hepatic lobe measuring up to approximately 2.3 cm which may reflect an underlying mass. Again, these findings are suspicious for possible mass forming cholangiocarcinoma. Further evaluation with GI consultation and ERCP is recommended. 2. No cholelithiasis or choledocholithiasis. 3. Normal caliber of the common bile duct. 4. Thrombosed left portal vein again seen, better appreciated on comparison CT. Liver MRI from 06/04/18: 1. Asymmetric intrahepatic biliary ductal dilatation involving predominantly the left lobe 2. Markedly heterogeneous left lobe enhancement, and abnormal signal and enhancement within the posterior medial right lobe. Suspected portal vein thrombosis. 3. Although a discrete mass is not visualized, the findings are very concerning for an obstructing hilar lesion such as a cholangiocarcinoma. Assessment & Plan 1. 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 prior h/o hep C infection, treated 3 yrs prior- patient reports viral clearance * Patient is s/p ERCP yesterday with stent placement at area of biliary constriction intrahepatically with LFTs downtrending today * Brushing from biliary hilum nondiagnostic, LN biopsy still pending * Discussed with patient that if this is cholangiocarcinoma, it seems to be localized, with possible involvement of left lobe liver, gastrohepatic and deandre hepatic nodes nonspecific on CT imaging * Recommend surgical oncology consultation as outpatient * Discussed with patient that regardless of whether she is resectable or not, she is looking at systemic treatment, but informed her would not get into specifics of chemotherapy without pathologic diagnosis * CEA normal, CA 19-9 and AFP pending * Patient inquired about prognosis if she did not pursue treatment, discussed that would be likely less than 12 month survival * HCV viral load pending * Patient will need medical oncology follow up on discharge with 7-10 days Thanks for the consult. Dr. Palafox is attending medical oncologist- please see his addendum Dr. Palafox spoke with Dr. León. I performed history and physical examination of the patient. ~I have discussed the patient's case, impression and plan with Krys Bangura PA-C. Her note reflects my findings and plan. In summary, she is a 63-year-old female, who had a history of hepatitis C infection in the past, she was successfully treated in the past, now admitted in the hospital for an obstructive jaundice. Found to have intrahepatic biliary validation mainly on the left side, suspected to have cholangiocarcinoma, left portal vein thrombosis noted but patent right portal vein and main portal vein noted, S/P biliary stent placement done on 06/04/2018, biopsy from the deandre hepatis lymph node > Benign findings, brush biopsy negative,. CA 19-9 level pending. AFP > Pending. I saw her at bedside, she says that she's feeling quite well, has some mild abdominal discomfort, no leg edema, no thrombotic complications in the past. She is likely to go home today. I reviewed with her regarding diagnostic workup done so far, will wait for additional blood test results, would like to have surgical oncology consultation at [facility]. I would not suggest anticoagulant treatment for left portal vein thrombosis at this time. Will check with him early next week and repeat comprehensive metabolic panel. Anam Palafox MD Hem/Onc
[2018-06-05 18:22] VITALS: BP 169/81
[2018-06-05] MEDS ORDERED: PANTOprazole SOD 40 MG TAB PO SCH (20:00)
--- NOTE | 2018-06-06 08:36 | Discharge Summary ---
Discharge Summary Date of Service Jun 05, 2018. 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 Problems/Secondary Diagnoses: Left portal vein thrombosis Gastritis Elevated LFT Immunizations: Have You Had Influenza Vaccine: Unknown History of Tetanus Vaccine?: Unknown History of Pneumococcal: Unknown History of Hepatitis B Vaccine: Unknown Procedures: ERCP with stent to common hepatic duct, brushings taken EUS with FNA of hepatogastric ligament lymph nodes EGD - gastritis Consultations: Gastroenterology Oncology Medication Reconciliation New Medications: Ciprofloxacin (Ciprofloxacin HCl) 500 Mg Tab 500 MG PO BID for 4 Days, #8 TABS 0 Refills Pantoprazole (Pantoprazole Sodium) 40 Mg Tab 40 MG PO BID, #60 TAB 1 Refill Continued Medications: Ascorbic Acid (Vitamin C) 1,000 Mg Tab 1000 MG PO DAILY Aspirin (Aspirin Ec) 81 Mg Tab 81 MG PO DAILY Atenolol (Tenormin) 50 Mg Tab 50 MG PO DAILY, 0 Refills Thiamine Hcl (Vitamin B-1) 50 Mg Tab 50 MG PO DAILY, TAB Vitamin E (Vitamin E) 400 Unit Tab 400 INTER.UNIT PO DAILY Discharge Exam Patient feeling well other than some mild epigastric discomfort. Eating well, no nausea or vomiting, no fevers. Discussed the results of testing on 06/04 in detail. Discussed that the FNA and brushings came back negative for malignancy but she would need further testing to actually sample the hepatic/bile duct mass. Long talk with Dr. Rowe about discharge plans, needs to be on Cipro. Appreciate consult from Dr. Palafox with [facility] oncology. He will follow up with patient this week, likely refer to [facility] to liver specialist for biopsy. He said that there was no need for anticoagulation with the portal vein thrombosis, it was the left portal vein, small branch. Discussed with patient, she was pleased with this plan. Review of Systems: Constitutional: No fever, No chills, No sweats, No weight loss, No weakness , No fatigue, No problem reported Eyes: No worsening of vision, No eye pain, No redness, No discharge, No diplopia, No problem reported ENT: No hearing loss, No unusual epistaxis, No nasal symptoms, No sore throat, No tinnitus, No dental problems, No trouble swallowing, No problem reported Respiratory: No cough, No sputum, No wheezing, No shortness of breath, No dyspnea on exertion, No dyspnea at rest, No hemoptysis, No problem reported Cardiovascular: No chest pain, No orthopnea, No PND, No edema, No claudication, No palpitations, No problem reported Abdomen: + pain (mild, epigastric, intermittent), No nausea, No vomiting, No diarrhea, No constipation, No GI bleeding, No problem reported Musculoskeletal: No joint pain, No muscle pain, No swelling, No calf pain, No problem reported Genitourinary - Female: No dysuria, No urinary frequency, No urinary urgency , No urinary incontinence, No urinary retention, No hematuria Neurologic: No memory loss, No paralysis, No weakness, No numbness/tingling , No vertigo, No balance problems, No problem reported Psychiatric: No depression symptoms, No anhedonism, No anxiety, No insomnia , No substance abuse, No problem reported Endocrine: No fatigue, No excessive thirst, No excessive urination, No problem reported Hematologic / Lymphatic: No abnormal bleeding/bruising, No clotting problems , No swollen lymph nodes, No night sweats, No problem reported Integumentary: No rash, No itch, No new/changing skin lesions, No color change, No bleeding, No problem reported Physical Exam: General Appearance: WD/WN, no apparent distress Eyes: normal inspection, EOMI, sclerae normal ENT: normal ENT inspection, hearing grossly normal, pharynx normal Neck: supple, no adenopathy, no JVD, trachea midline Respiratory/Chest: chest non-tender, lungs clear, normal breath sounds, no respiratory distress, no accessory muscle use Cardiovascular: regular rate, rhythm, no edema, no gallop, no JVD, no murmur , normal peripheral pulses Abdomen / GI: normal bowel sounds, non tender, soft, no organomegaly Extremities: normal inspection, no calf tenderness, normal capillary refill , no pedal edema, normal range of motion, pelvis stable Neurologic/Psychiatric: medical radiation dosimetrist II-XII nml as tested, no motor/sensory deficits , alert, normal mood/affect, normal reflexes, oriented x 3 Skin: normal color, warm/dry, no rash Hospital Course 63 yo female with ongoing intermittent abdominal pain and nausea, no weight loss , who was found to have elevated LFT and liver mass on CT as outpatient - Liver mass with associated elevated liver enzymes, possible cholangiocarcinoma MRCP showed 2.3cm left lobe liver mass with dilated intrahepatic biliary ducts dedicated MRI of the liver also suggested liver mass, likely cholangiocarcinoma ERCP 06/04 with stricture of common hepatic duct, stent placed, brushings sent for pathology - negative EUS showed several gastrohepatic LN, FNA done, sent for pathology - negative for malignancy bilirubin, AST/ALT and alk phos all trending down quickly after stent placed , nearly normal CEA normal, CA19-9 and AFP level still pending will follow up closely with Dr. Palafox, oncology, plans to refer to [facility] for both biopsy and evaluation for resection with surgical oncologist per Dr. Rowe, needs to be on 4 more days of Cipro for prophylaxis after ERCP and stent placement - Portal vein thrombosis treated initially with heparin drip, held for ERCP and then held due to sphincterotomy per Dr. Palafox, no need for anticoagulation on discharge - H/o hepatitis C, treated with Harvoni completed treatment several years ago, will follow up with GI about hepatitic C levels, still pending on discharge - Gastritis: seen on EGD Protonix 40mg PO BID x 1 month then continue once daily - HTN: chronic, stable on Atenolol Total Time Spent: Greater than 30 minutes This includes examination of the patient, discharge planning, medication reconciliation, and communication with other providers. Discharge Instructions Please refer to the electronic Patient Visit Report (Discharge Instructions) for additional information. Follow-Up Dr. Palafox this week Kiersten Wilkes in 2 weeks GI in several weeks Additional Copies To Kiersten Wilkes PA-C; Lizeth Rowe, DO; Anam Palafox M.D.
[2018-06-08 11:51] LABS: HEPATITIS C VIRAL RNA BY PCR <15 NOT DETECTED IU/ML (<15); HEPATITIS C VIRAL RNA(LOG) PCR <1.18 NOT DETECTED LOG IU/ML (<1.18)
== END 2018-06-05 18:30 | disposition home or self-care (01) | DRG 987 ==
LOC: C.EDB 18:01 → C.4E 20:30 → ENRESERV 20:52
PROVIDERS: ADMIT Hospitalist; ATTEND Hospitalist
PROC: 07B74ZX Excision of Thorax Lymphatic, Percutaneous Endoscopic Approach, Diagnostic (ICD-10-PCS; principal; 2018-06-04 10:45)
PROC: 0DB68ZX Excision of Stomach, Via Natural or Artificial Opening Endoscopic, Diagnostic (ICD-10-PCS; principal; 2018-06-04 10:45)
PROC: 0FB78ZX Excision of Common Hepatic Duct, Via Natural or Artificial Opening Endoscopic, Diagnostic (ICD-10-PCS; principal; 2018-06-04 10:45)
DX: C22.1 Intrahepatic bile duct carcinoma (principal); K83.1 Obstruction of bile duct; I10 Essential (primary) hypertension; Z79.82 Long term (current) use of aspirin; R74.0 Nonspecific elevation of levels of transaminase and lactic acid dehydrogenase [LDH]; R59.9 Enlarged lymph nodes, unspecified; Z86.19 Personal history of other infectious and parasitic diseases; K29.70 Gastritis, unspecified, without bleeding; F17.200 Nicotine dependence, unspecified, uncomplicated; K59.00 Constipation, unspecified

== ENCOUNTER → 2018-06-03 | Outpatient (CLI) | payer BC ==
[~2018-06-03] MED LIST changes: +ASCO10003 PO; +ASPI81TA28 PO; +CPR500 PO; +ENOX80IN SQ; +OPTIRAY 320 IV PRN; +PANT40TA2 PO; +THIA50TA3 PO; +VITA1TAB4 PO
--- NOTE | 2018-06-03 13:18 | DIAGNOSTIC IMAGING REPORT ---
CT SCAN OF THE ABDOMEN AND PELVIS WITH IV CONTRAST CLINICAL HISTORY: Generalized abdominal pain. COMPARISON STUDY: No priors. TECHNIQUE: Following the IV administration of 90 cc of Optiray 320, CT scan of the abdomen and pelvis is performed from the lung bases to the proximal femora. Images are reviewed in the axial, sagittal, and coronal planes. IV contrast was administered without complication. A dose lowering technique was utilized adhering to the principles of ALARA. CT DOSE: 261.68 mGycm FINDINGS: Lung bases: The heart is normal in size and without pericardial effusion. The coronary arteries are densely calcified. The lung bases are clear noting dependent atelectasis. Liver: The contrast-enhanced liver is normal in size and contour. There is moderate intrahepatic biliary ductal dilatation identified in the left lobe. Mild biliary ductal dilatation is seen in the right lobe. The left lobe appears atrophic and heterogeneous.. The hepatic veins are patent. The main portal vein and the right portal vein are patent. The left portal vein is thrombosed. Gallbladder: The gallbladder is normal in appearance and common bile duct is normal in caliber. Spleen: Normal in size and attenuation. Pancreas: Unremarkable. Adrenal glands: Unremarkable. Kidneys: The contrast enhanced kidneys are normal in size and without hydronephrosis. The kidneys enhance symmetrically. Abdominal vasculature: The abdominal aorta is normal in course and caliber noting mild atherosclerotic calcification. Bowel: Moderate fecal retention is noted in the right colon. No bowel obstruction is seen. The appendix is well-visualized and normal. Peritoneum: There is no intraperitoneal free air or abdominal ascites. There is a small fat-containing umbilical hernia. Lymphadenopathy: There are prominent lymph nodes in the deandre hepatis and portacaval region. A portacaval node on image #129 measures 9 mm short axis. A gastrohepatic node on image #97 measures 8 mm in short axis. Pelvic viscera: The bladder, uterus, and adnexa are normal as visualized. Skeletal structures: The skeletal structures are osteopenic. Mild lumbosacral spondylosis is observed. No lytic or blastic lesions are seen. IMPRESSION: 1. There is asymmetric intrahepatic biliary ductal dilatation involving the left lobe of the liver as compared to the right. The left lobe appears somewhat diminutive and heterogeneous and the left portal vein is thrombosed. The appearance is highly concerning for an obstructing mass lesion such as a cholangiocarcinoma. GI consultation and ERCP is recommended for further assessment. 2. Prominent lymph nodes in the deandre hepatis and gastrohepatic space are nonspecific but concerning. 3. Moderate fecal retention is noted in the right colon. 4. Additional findings as above. Electronically signed by: Meño Howe M.D. 06/03/2018 1:16 PM Dictated Date/Time: 06/03/2018 1:03 PM
== END | disposition home or self-care (01) ==
LOC: C.CTS 11:59
PROVIDERS: ATTEND Physician Assistant
DX: K59.00 Constipation, unspecified (principal); I81 Portal vein thrombosis; K83.8 Other specified diseases of biliary tract

== ENCOUNTER 2020-01-24 10:26 | Inpatient (IN) ==
[2020-01-24] MEDS ORDERED: SODIUM CHLORIDE 0.9% 1000ML 1,000 ML IV ONE (10:43)
[2020-01-24] MEDS ORDERED: ONDANSETRON INJ 2 MG/ML 2 ML VIAL IV STA (10:43)
--- NOTE | 2020-01-24 11:08 | Emergency Department Note ---
Impression & Plan Acute hyponatremia, Cholangiocarcinoma, Back pain, Abdominal ascites ED Provider Note NAME: DANIEL ROBERTS AGE: 64 SEX: F : 1955 ARRIVES VIA: Walk-In INFORMANT: Patient ED PROVIDER(S): Jeffery Jenkins DO CHIEF COMPLAINT: Back pain HPI: Patient is a 64-year-old female with a past medical history of cholangiocarcinoma that presents the ER on chemotherapy and radiation for back pain and abdominal bloating. She notes that her back pain has been present sin ce this past Friday. Abdominal bloating started recently. Her back pain is a 7 out of 10. There is no radiation. It is in her lower lumbar region and goes out to both sides. She notes that twisting, turning, bending, and movement do not change it. She denies any weakness or numbness in the legs. No numbness in the groin. She was able to move her bowels. Last bowel movement was this morning. She did vomit twice. She did not take her oral chemo medication this morning. She has taken hydrocodone 2 tablets with some improvement of her pain. No other exacerbating or remitting factors. ROS: See above HPI for pertinent positives & negatives. A total of 10 systems reviewed and were otherwise negative. PAST MEDICAL HISTORY:See Below PAST SURGICAL HISTORY:See Below FAMILY HISTORY:See Below SOCIAL HISTORY:See Below HOME MEDICATIONS:See Below ALLERGIES:See Below VITALS:See Below PHYSICAL EXAMINATION: GENERAL: Sitting up in bed, alert, chronically ill-appearing, no acute distress EYE EXAM: normal conjunctiva. OROPHARYNX: no exudate, no erythema, lips, buccal mucosa, and tongue normal and mucous membranes are moist NECK: supple, no nuchal rigidity, no adenopathy, non-tender LUNGS: Clear to auscultation. Normal chest wall mechanics HEART: no murmurs, S1 normal and S2 normal ABDOMEN: abdomen soft, with minimal diffuse tenderness. Radiation sticker in place the subxiphoid region, normo-active bowel sounds, no masses, no rebound or guarding. BACK: Back is symmetrical on inspection and there is no deformity, no midline tenderness, no CVA tenderness. SKIN: no rashes and no bruising UPPER EXTREMITIES: upper extremities are grossly normal. LOWER EXTREMITIES: No pitting edema. NEURO EXAM: Normal sensorium, cranial nerves II-XII grossly intact, normal speech, no gross weakness of arms, no weakness of legs. No drift. Finger to nose intact. Gross sensation intact. MEDICAL DECISION MAKING: Patient is a 64-year-old female who presents the ER with a past medical history of cholangiocarcinoma receiving chemo and radiation for lower back pain and abdominal distention associated with weakness. She notes that she has been also having some dry heaves nausea and vomiting. IV was established blood work was obtained. Labs show a mild leukopenia at 3.9 thousand. No significant anemia. BMP with a hyponatremia at 126. LFTs bilirubin and lipase was unremarkable. UA was negative. CT abdomen pelvis shows the ascites but no obvious obstruction. Some bile duct dilatation. Patient was given IV fluids and Zofran. She did appear to be dehydrated. She was discussed with the hospitalist for observation secondary to dehydration and hyponatremia. Triage Nursing notes reviewed. Prior medical records reviewed Vital Signs: reviewed and remarkable for hypertension Differential diagnosis: Differential diagnoses includes but is not limited to lumbar radiculopathy, kidney stone, muscle strain, facture, cauda equina, mass, and disc herniation. ER treatment provided: See below Diagnostics interpreted by me: ECG: [none] Cardiac Monitoring: Sinus rhythm rate of 81 Laboratory studies: As stated above and show below. Imaging studies: CT abdomen pelvis shows abdominal ascites but no other acute pathology. CT lumbar spine shows no acute pathology. Consultation(s): Dr. Yan Angeles ED COURSE: Procedures: none Critical Care: None Past Med/Surg History Medical History (Updated 01/24/20 @ 16:06 by Yan Angeles MD) Biliary stricture (Inactive) GERD (gastroesophageal reflux disease) Well controlled. 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 Brother Coronary heart disease stent placement done Sister No problems noted. Social History (Updated 11/30/19 @ 09:36 by Kallie Burroughs RN) Preferred Language: Bangladeshi Communication Ability: Effective Pearl Glue Drier Required: No Beliefs That Will Affect Care: None Current Living Situation: Alone Feels Safe at Home: Yes Smoking Status: Former smoker Tobacco Type: cigarettes ; Cigarettes Per Day: 1/2 ppd since age 17 ; Second Hand Exposure: No ; Hx Alcohol Use: Yes (socially) Alcohol type: wine Hx Substance Use: No caffeine: Yes (2 cups a day) during the past year weight has: decreased > 10 lbs Dental Care, Regularly: Yes Allergies Allergies Allergy/AdvReac Type Severity Reaction Status Date / Time No Known Allergies Allergy Verified 01/24/20 11:07 Home Meds Home Medications Medication Instructions Recorded Confirmed ascorbic acid (vitamin C) [Vitamin 1,000 mg PO HS 08/05/18 01/24/20 C] aspirin 81 mg PO HS 08/05/18 01/24/20 atenolol 50 mg PO HS 08/05/18 01/24/20 dicyclomine 10 mg PO DAILY PRN 08/05/18 01/24/20 vitamin E 400 unit PO HS 08/05/18 01/24/20 hyoscyamine sulfate 0.125 mg tablet 0.125 mg PO QID PRN 11/30/19 01/24/20 vitamin B complex 1 tab PO DAILY 11/30/19 01/24/20 capecitabine 150 mg tablet 150 mg PO BID 12/27/19 01/24/20 capecitabine 500 mg tablet 1,000 mg PO BID tab 12/27/19 01/24/20 ondansetron HCl 8 mg tablet 8 mg PO Q8H 01/10/20 01/24/20 Results & Data (ED) Vital Signs Vital Signs - 24 hr 01/24/20 10:31 01/24/20 12:26 01/24/20 13:30 Temperature 36.4 C L Temperature Source Oral Pulse Rate 87 Pulse Rate [Apical] 74 77 Pulse Rhythm Regular Pulse Rhythm [Apical] Regular Regular Pulse Strength Normal Respiratory Rate 18 18 17 Respiratory Effort / Characteristics Non-Labored Spontaneous Non-Labored Spontaneous Non-Labored Spontaneous Respiratory Depth Normal Normal Normal Respiratory Pattern Regular Regular Regular Blood Pressure 144/84 H Blood Pressure [Left Arm] 155/67 H 137/84 Blood Pressure Mean 104 Blood Pressure Mean [Left Arm] 96 101 Blood Pressure Position Sitting Pulse Oximetry 98 98 97 Oxygen Delivery Method Room Air Room Air Room Air Sepsis Recent Fever Within 48 Hours No Sepsis New/Unexplained Change in Mental Status No Sepsis Action Taken by Nursing No Action Required 01/24/20 14:00 01/24/20 15:31 Temperature Temperature Source Pulse Rate Pulse Rate [Apical] 75 74 Pulse Rhythm Pulse Rhythm [Apical] Regular Regular Pulse Strength Respiratory Rate 17 18 Respiratory Effort / Characteristics Non-Labored Spontaneous Non-Labored Spontaneous Respiratory Depth Normal Normal Respiratory Pattern Regular Regular Blood Pressure Blood Pressure [Left Arm] 133/81 145/88 H Blood Pressure Mean Blood Pressure Mean [Left Arm] 98 107 Blood Pressure Position Pulse Oximetry 97 97 Oxygen Delivery Method Room Air Room Air Sepsis Recent Fever Within 48 Hours Sepsis New/Unexplained Change in Mental Status Sepsis Action Taken by Nursing Laboratory Data Result diagrams: 01/24/20 11:10 01/24/20 11:10 Lab Results 01/24/20 01/24/20 01/24/20 Range/Units 11:10 11:10 12:49 WBC 3.92 L (4.8-10.8) K/uL RBC 4.06 L (4.2-5.4) M/uL Hgb 14.3 (12.0-16.0) g/dL Hct 38.6 (37-47) % MCV 95.1 (80-100) fL MCH 35.2 H (25-34) pg MCHC 37.0 H (32-36) g/dL RDW Std Deviation 50.5 H (36.4-46.3) fL RDW Coeff of Nish 15.7 H (11.5-14.5) % Plt Count 187 (130-400) K/uL MPV 9.9 (7.4-10.4) fL Immature Gran % (Auto) 0.3 % Neut % (Auto) 74.7 % Lymph % (Auto) 7.9 % [place] % (Auto) 16.8 % Eos % (Auto) 0.3 % Baso % (Auto) 0.0 % Immature Gran # (Auto) 0.01 (0.00-0.02) K/uL Neut # (Auto) 2.93 (1.4-6.5) K/uL Lymph # (Auto) 0.31 L (1.2-3.4) K/uL [place] # (Auto) 0.66 H (0.11-0.59) K/uL Eos # (Auto) 0.01 (0-0.5) K/uL Baso # (Auto) 0.00 (0-0.2) K/uL Sodium 126 L (136-145) mmol/L Potassium 3.9 (3.5-5.1) mmol/L Chloride 91 L (98-107) mmol/L Carbon Dioxide 29 (21-32) mmol/L Anion Gap 6.0 (3-11) BUN 17 (7-18) mg/dl Creatinine 0.63 (0.6-1.2) mg/dl Est Cr Clr Drug Dosing 68.0 ml/min Est GFR ( Amer) 109.1 Est GFR (Non-Af Amer) 94.1 BUN/Creatinine Ratio 27.1 H (10-20) Glucose 148 H (70-99) mg/dl Calcium 8.8 (8.5-10.1) mg/dl Total Bilirubin 0.7 (0.2-1) mg/dl AST 25 (15-37) U/L ALT 19 (12-78) U/L Alkaline Phosphatase 42 L (45-117) U/L Total Protein 5.9 L (6.4-8.2) gm/dl Albumin 3.0 L (3.4-5.0) gm/dl Globulin 2.9 (2.5-4.0) gm/dl Albumin/Globulin Ratio 1.0 (0.9-2) Lipase 57 L (73-393) U/L Urine Color Yellow Urine Appearance Clear (Clear) Urine pH 6.5 (4.5-7.5) Ur Specific [place] > 1.045 H (1.000-1.030) Urine Protein Negative (Negative) Urine Glucose (UA) Negative (Negative) Urine Ketones Trace H (Negative) Urine Blood Negative (Negative) Urine Nitrite Negative (Negative) Urine Bilirubin Negative (Negative) Urine Urobilinogen Negative (Negative) Ur Leukocyte Esterase Negative (Negative) Administered Medications Ioversol (Optiray 320 100ml) 93 ml IV ONCE PRN PRN Reason: Interaction Checking Stop: 01/28/20 12:27 Last Admin: 01/24/20 12:30 Dose: 93 ml Documented by: [id number] Discontinued Medications Sodium Chloride (Nss 1000ml) 1,000 mls @ 999 mls/hr IV .Q1H1M ONE Stop: 01/24/20 11:43 Last Infusion: 01/24/20 12:23 Dose: 0 mls/hr Documented by: [id number] Admin: 01/24/20 11:17 Dose: 999 mls/hr Documented by: [id number] Morphine Sulfate (Morphine Sulfate) 4 mg IV NOW STA Stop: 01/24/20 11:50 Last Admin: 01/24/20 11:52 Dose: 4 mg Documented by: [id number] Ondansetron HCl (Zofran) 4 mg IV NOW STA Stop: 01/24/20 10:44 Last Admin: 01/24/20 11:17 Dose: 4 mg Documented by: [id number] Discharge Plan Visit Data Chief Complaint: Back Injury/Pain Stated Complaint: BACK PAIN, DISTENDED STOMACH ED Provider: Jeffery Jenkins Discharge Problem: Acute hyponatremia, Cholangiocarcinoma, Back pain, Abdominal ascites Forms Stand Alone Forms: [facility] Prescriptions Prescriptions: No Action hyoscyamine sulfate [Levsin] 0.125 mg tablet 0.125 mg PO QID PRN (Reason: dyspepsia) RF: 0 vitamin B complex [B Complex-Vitamin B12] Tablet 1 tab PO DAILY RF: 0 capecitabine [Xeloda] 500 mg tablet 1,000 mg PO BID RF: 0 capecitabine [Xeloda] 150 mg tablet 150 mg PO BID RF: 0 ondansetron HCl [Zofran] 8 mg tablet 8 mg PO Q8H RF: 0 ascorbic acid (vitamin C) [Vitamin C] 1,000 mg Tablet 1,000 mg PO HS RF: 0 aspirin 81 mg Tablet,Delayed Release (Dr/Ec) 81 mg PO HS RF: 0 dicyclomine 10 mg Capsule 10 mg PO DAILY PRN (Reason: Pain) RF: 0 atenolol 50 mg Tablet 50 mg PO HS RF: 0 vitamin E 400 unit Capsule 400 unit PO HS RF: 0 Discharge Problem: Back pain Qualifiers: Back pain location: back pain in unspecified location Chronicity: acute Back pain laterality: unspecified Qualified Code(s): M54.9 - Dorsalgia, unspecified Abdominal ascites Qualifiers: Ascites type: other type Qualified Code(s): R18.8 - Other ascites
[2020-01-24 11:27] LABS: Eosinophils # (auto) 0.01 K/uL (0-0.5); Eosinophils % (auto) 0.3 %; Hematocrit (blood only) 38.6 % (37-47); Hemoglobin 14.3 g/dL (12.0-16.0); Immature Granulocytes # (auto) 0.01 K/uL (0.00-0.02); Immature Granulocytes % (auto) 0.3 %; Lymphocytes # (auto) 0.31 K/uL (1.2-3.4); Lymphocytes % (auto) 7.9 %; Mean Corpuscular Hemoglobin 35.2 pg (25-34); Mean Corpuscular Volume 95.1 fL (80-100); Mean Platelet Volume 9.9 fL (7.4-10.4); Monocytes # (auto) 0.66 K/uL (0.11-0.59); Monocytes % (auto) 16.8 %; Neutrophils # (auto) 2.93 K/uL (1.4-6.5); Neutrophils % (auto) 74.7 %; Platelet Count 187 K/uL (130-400); RDW Coefficient of Variation 15.7 % (11.5-14.5); RDW Standard Deviation 50.5 fL (36.4-46.3); Red Blood Count 4.06 M/uL (4.2-5.4); White Blood Count 3.92 K/uL (4.8-10.8)
[2020-01-24 11:47] LABS: BUN Creatinine Ratio 27.1 (10-20); Calcium 8.8 mg/dl (8.5-10.1); Est GFR (African American) 109.1; Est GFR (Non-African American) 94.1; Potassium 3.9 mmol/L (3.5-5.1)
[2020-01-24] MEDS ORDERED: MoRPHine SULFATE 4 MG/ML 1 ML CARP\\VIAL IV STA (11:49)
[2020-01-24 11:50] LABS: Bilirubin,Total 0.7 mg/dl (0.2-1); Globulin 2.9 gm/dl (2.5-4.0); Total Protein 5.9 gm/dl (6.4-8.2)
[2020-01-24] MEDS ORDERED: IOVERSOL 100ml IV PRN (12:28)
--- NOTE | 2020-01-24 12:40 | CT Scan Report ---
LUMBAR SPINE CT CT DOSE: 293.19 mGy.cm HISTORY: lower back pain TECHNIQUE: Multiaxial CT images of the lumbar spine were performed and reformatted in the sagittal an d coronal plane without the use of contrast. A dose lowering technique was utilized adhering to the principles of ALARA. COMPARISON: Abdomen and pelvis CT 12/10/2018. FINDINGS: No fracture or subluxation within the lumbar spine. Disc spaces within the lumbar spine are preserved for age. Tiny endplate osteophytes are noted. There is mild disc space narrowing at T12-L1 . Mild facet degenerative changes seen within the lower lumbar spine. The visualized sacrum is intact . Ascites identified within the abdomen. This is better appreciated on the same day abdomen and pelvi s CT. Paravertebral soft tissues are unremarkable. No significant central canal narrowing by CT techn ique. Mild bilateral neural foraminal narrowing at L4-L5 and L5-S1. No suspicious lytic or blastic os seous lesions. IMPRESSION: 1. No fracture or subluxation within the lumbar spine. 2. Mild degenerative changes as described above. ACT 112: Negative or not required by law. Electronically signed by: Ibrahima Bean M.D. 01/24/2020 12:39 PM
[2020-01-24 13:12] LABS: Appearance Urine Clear (Clear); Bilirubin Urine Negative (Negative); Blood Urine Negative (Negative); Color Urine Yellow; Glucose Urine UA Negative (Negative); Ketones Urine Trace (Negative); Leukocyte Esterase Urine Negative (Negative); Nitrite Urine Negative (Negative); Protein Urine Negative (Negative); Specific Gravity Urine > 1.045 (1.000-1.030); Urobilinogen Urine Negative (Negative); pH Urine 6.5 (4.5-7.5)
--- NOTE | 2020-01-24 13:14 | CT Scan Report ---
CT SCAN OF THE ABDOMEN AND PELVIS WITH IV CONTRAST CLINICAL HISTORY: Generalized abdominal pain. Unspecified cancer history. COMPARISON STUDY: Abdominal CT dated 12/10/2018. PET CT dated 11/24/2019. TECHNIQUE: Following the IV administration of 93 cc of Optiray 320, CT scan of the abdomen and pelvi s is performed from the lung bases to the proximal femora. Images are reviewed in the axial, sagittal , and coronal planes. IV contrast was administered without complication. A dose lowering technique wa s utilized adhering to the principles of ALARA. FINDINGS: Lung bases: The heart is normal in size and without pericardial effusion. The coronary arteries are d ensely calcified. There are trace pleural effusions with bibasilar scarring/atelectasis. The distal e sophagus is thick walled with mucosal hyperemia. Small esophageal varices are noted. Liver: A common bile duct stent is unchanged in position and extends into the right hepatic duct. The re is moderate dilatation of the left-sided intrahepatic ducts. Marked parenchymal scarring and atrop hy is noted in the left lobe of the liver. The liver is heterogeneous in attenuation. Question a 3 cm hypodense mass lesion within the left hepatic lobe on image #105. There is marked attenuation of the main portal vein at the hilum (axial image #115). Main and right portal veins remain patent. The lef t portal vein is diminutive versus occluded. The hepatic veins are clear. Gallbladder: Grossly unremarkable and surrounded by ascitic fluid. Spleen: Normal in size and attenuation. Pancreas: Unremarkable. Adrenal glands: Unremarkable. Kidneys: The contrast enhanced kidneys are normal in size and without hydronephrosis. The kidneys enh ance symmetrically. Abdominal vasculature: The abdominal aorta is normal in course and caliber noting mild atheroscleroti c calcification. Bowel: There is no high-grade bowel obstruction. The stomach is markedly distended. The small bowel l oops and colon are fluid-filled. Mild diffuse wall thickening and fold thickening is seen throughout the small bowel and colon. There is significant associated mucosal hyperemia. The appendix is well-v isualized and normal. There is significant rectal wall thickening with perirectal collaterals/hemorrh oids. Peritoneum: There is a moderate volume of abdominal ascites. No intraperitoneal free air is seen. Lymphadenopathy: None. Pelvic viscera: The bladder, uterus, and adnexa are normal as visualized. Skeletal structures: The skeletal structures are osteopenic. Mild lumbosacral spondylosis is observed . No lytic or blastic lesions are seen. IMPRESSION: 1. There is a moderate volume of abdominal ascites. This has significantly increased from the 11/24/19 20 PET/CT. 2. A common bile duct stent extending into the right hepatic lobe is unchanged in position. There is no right-sided biliary ductal dilatation. 3. The left lobe is markedly abnormal/atrophic with the suggestion of an ill-defined low-attenuation mass lesion and marked biliary ductal dilatation throughout the left lobe. Correlation with the patie nt's oncological history will be required. 4. There is mild diffuse wall thickening seen throughout the small bowel and colon with associated mu cosal hyperemia. This could be related to hypoproteinemia and fluid overload related to liver dysfunc tion. A superimposed enterocolitis would be impossible to exclude. Angioedema is considered much less likely but is a differential consideration. Clinical correlation will be essential. 5. Trace pleural effusions. 6. There is marked attenuation of the main portal vein at the hilum. The vessel remains patent. 7. There is wall thickening and mucosal hyperemia of the distal esophagus and the distended stomach. Esophageal varices are noted. 8. Similar findings are noted in the rectum with evidence of perirectal collaterals/hemorrhoids. 9. Additional findings as above. ACT 112: Negative or not required by law. Electronically signed by: Meño Howe M.D. 01/24/2020 1:12 PM
--- NOTE | 2020-01-24 15:33 | History & Physical Report ---
Date of Service January 24, 2020 Assessment & Plan (1) Intractable nausea and vomiting: Suspect chemotherapy induced, will hold capecitabine and consult her oncologist. Ondansetron 4mg IV q4h PRN (use first line). Metoclopramide 10mg IV Q6H PRN (use second line). (2) Acute hyponatremia: Suspect hypovolemic rather than hypervolemia from liver failure. Will give NSS 80ml/hr and monitor Na serum level. If decreasing will need to stop this given ascites. Doubtful this is contributing towards N&V as above given this has been dropping over the past 2 weeks and N&V symptoms have been for the past 6 weeks. (3) Abdominal ascites: ?secondary to underlying cancer versus chemoradiation. LFTs stable and given this has significantly progressed since chemoradiation started I suspect the later and will consult both her oncologist and radiation oncologist for further advice. ?needs a break in treatment to build back her nutritional status. Possible hyponatremia due to liver failure, although her overall fluid status does not appear to be hypervolemic. (4) Cholangiocarcinoma: Irresectable intrahepatic cholangiocarcinoma. Will hold capecitabine given likely current symptoms and malnutrition related to this and consult her oncologist for further recommendations. (5) Back pain: Suspected due to ascites as above. (6) Severe protein-calorie malnutrition: Consult asphalt distributor operator for advice regarding supplementation. (7) GERD (gastroesophageal reflux disease): Famotidine 20mg IV now. Possibly metoclopramide will also help with this. Continue famotidine IV 20mg daily until she can take PO. (8) DVT prophylaxis: Given low weight will use heparin 5000 units BID. History of Present Illness Chief Complaint: Nausea, vomiting, back pain Primary Care Provider: PT DECLINED Evelin Suarez is a 64 year old female with known intrahepatic cholangiocarcinoma who present to the ER with abdominal distension and intractable nausea. She reports she has been getting progressively worse for the last 6 weeks since starting chemotherapy but much worse for the last 2-3 days with increased abdominal distension and non-radiating bilateral back pain. She notes associated poor appetite and she hasn't been drinking or eating much in the past 2-3 days. From prior notes it appears her cholangiocarcinoma is intrahepatic irresectable and plan is for ongoing chemoradiation. No indication of biliary stent blockage given LFTs unremarkable. Allergies Allergy/AdvReac Type Severity Reaction Status Date / Time No Known Allergies Allergy Verified 01/24/20 11:07 Home Medications Home Medications Medication Instructions Recorded Confirmed Type ascorbic acid (vitamin C) [Vitamin 1,000 mg PO HS 08/05/18 01/24/20 History C] aspirin 81 mg PO HS 08/05/18 01/24/20 History atenolol 50 mg PO HS 08/05/18 01/24/20 History dicyclomine 10 mg PO DAILY PRN 08/05/18 01/24/20 History vitamin E 400 unit PO HS 08/05/18 01/24/20 History hyoscyamine sulfate 0.125 mg tablet 0.125 mg PO QID PRN 11/30/19 01/24/20 History vitamin B complex 1 tab PO DAILY 11/30/19 01/24/20 History capecitabine 150 mg tablet 150 mg PO BID 12/27/19 01/24/20 History capecitabine 500 mg tablet 1,000 mg PO BID tab 12/27/19 01/24/20 History ondansetron HCl 8 mg tablet 8 mg PO Q8H 01/10/20 01/24/20 History Past Med/Surg History Medical History (Updated 01/24/20 @ 16:24 by Yan Angeles MD) Biliary stricture (Inactive) GERD (gastroesophageal reflux disease) Well controlled. 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 Brother Coronary heart disease stent placement done Sister No problems noted. Social History (Updated 11/30/19 @ 09:36 by Kallie Burroughs, RN) Preferred Language: Croatian Communication Ability: Effective Conference Director Required: No Beliefs That Will Affect Care: None Current Living Situation: Alone Other Information That Helps Us Care for You: No Feels Safe at Home: Yes Safety Concerns: Feels Safe At This Time Smoking Status: Current every day smoker Tobacco Type: cigarettes ; Cigarettes Per Day: 5 ; Second Hand Exposure: No ; Hx Alcohol Use: No (socially) Hx Substance Use: No caffeine: Yes (2 cups a day) during the past year weight has: decreased > 10 lbs Dental Care, Regularly: Yes Review of Systems Review of Systems: All systems reviewed & are unremarkable except as noted in HPI & below Physical Exam Constitutional: well developed and + frail appearing; + not well nourished and no acute distress Eyes: + anicteric sclerae; normal pupil size ENMT: external ear and nose normal, oropharynx normal Neck: trachea midline, no thyromegaly Respiratory: normal respiratory effort, lungs clear to auscultation Cardiovascular: Rate/Rhythm: regular rate and regular rhythm Heart Sounds: no murmur Vessels: no JVD Extremities: normal capillary refill; no calf tenderness and no pedal edema Gastrointestinal (Abdomen): Inspection/Auscultation: + abdomen distended and normal bowel sounds Percussion/Palpation: + abdomen tender (RUQ pain on palpation) and abdomen soft; no guarding and abdomen not rigid Musculoskeletal: no cyanosis or clubbing, extremities motor strength 5/5 Skin: no rashes, warm and dry Neurologic: moves all extremities and awake; no focal motor deficits and not confused Psychiatric: A+Ox3, euthymic affect Genitourinary: no CVA tenderness Lymphatic: no cervical or axillary lymphadenopathy Results & Data Results & Data ([facility]) Vital Signs (Past 12 Hours) Vital Signs Temp Pulse Pulse Resp BP BP Pulse Ox 01/24/20 14:00 75 17 133/81 97 01/24/20 13:30 77 17 137/84 97 01/24/20 12:26 74 18 155/67 H 98 01/24/20 10:31 36.4 C L 87 18 144/[address] SCAN OF THE ABDOMEN AND PELVIS WITH IV CONTRAST IMPRESSION: 1. There is a moderate volume of abdominal ascites. This has significantly increased from the 11/24/2019 PET/CT. 2. A common bile duct stent extending into the right hepatic lobe is unchanged in position. There is no right-sided biliary ductal dilatation. 3. The left lobe is markedly abnormal/atrophic with the suggestion of an ill- defined low-attenuation mass lesion and marked biliary ductal dilatation throughout the left lobe. Correlation with the patient's oncological history will be required. 4. There is mild diffuse wall thickening seen throughout the small bowel and colon with associated mucosal hyperemia. This could be related to hypoproteinemia and fluid overload related to liver dysfunction. A superimposed enterocolitis would be impossible to exclude. Angioedema is considered much less likely but is a differential consideration. Clinical correlation will be essential. 5. Trace pleural effusions. 6. There is marked attenuation of the main portal vein at the hilum. The vessel remains patent. 7. There is wall thickening and mucosal hyperemia of the distal esophagus and the distended stomach. Esophageal varices are noted. 8. Similar findings are noted in the rectum with evidence of perirectal collat erals/hemorrhoids. LUMBAR SPINE CT IMPRESSION: 1. No fracture or subluxation within the lumbar spine. 2. Mild degenerative changes as described above. Code Status & VTE Plan Code Status Full code as discussed with the patient VTE Prophylaxis Plan VTE Prophylaxis will be ordered: Yes PG Care Time/CCT Total # of Minutes Spent Total Time Spent with Patient: Total time spent is greater than 50% in coordination of care (as documented) at patient's floor/unit and/or counseling patient: Coding Level of Care Code 57266 Initial Inpt Care Lvl 3 Diagnoses Intractable nausea and vomiting R11.2 Acute hyponatremia E87.1 Abdominal ascites R18.8 Ascites type: other type Cholangiocarcinoma C22.1 Back pain M54.9 Back pain laterality: unspecified Back pain location: back pain in unspecified location Chronicity: acute Severe protein-calorie malnutrition E43 GERD (gastroesophageal reflux disease) K21.9 DVT prophylaxis Z29.9 (1) Abdominal ascites Ascites type: other type Qualified Code(s): R18.8 - Other ascites (2) Back pain Back pain laterality: unspecified Back pain location: back pain in unspecified location Chronicity: acute Qualified Code(s): M54.9 - Dorsalgia, unspecified
[2020-01-24] MEDS ORDERED: FAMOTIDINE 20MG/5ML IV PUSH IV STA (15:41)
[2020-01-24] MEDS ORDERED: HYDROmorphone INJ 1 MG/ML SYRINGE IM PRN (16:03)
[2020-01-24] MEDS ORDERED: HYDROmorphone INJ 1 MG/ML SYRINGE IV PRN (16:08)
[2020-01-24] MEDS ORDERED: ZOLPIDEM TARTRATE 5 MG TAB PO PRN (16:53)
[2020-01-24] MEDS ORDERED: METOCLOPRAMIDE HCL INJ 5 MG/ML 2 ML VIAL IV PRN (16:53)
[2020-01-24] MEDS ORDERED: DICYCLOMINE HCL 10 MG CAP PO PRN (16:53)
[2020-01-24] MEDS ORDERED: ACETAMINOPHEN 325 MG TAB PO PRN (16:53)
[2020-01-24] MEDS: SODIUM CHLORIDE 0.9% 1000ML 1,000 ML IV SCH (17:12)
[2020-01-24] MEDS: ONDANSETRON INJ 2 MG/ML 2 ML VIAL IV PRN (19:19)
[2020-01-24] MEDS: ATENOLOL 50 MG TABLET PO SCH (19:36)
[2020-01-24] MEDS: ASCORBIC ACID 500 MG TAB PO SCH (19:36)
[2020-01-24] MEDS: ASPIRIN 81 MG ECTAB PO SCH (19:37)
[2020-01-24] MEDS: HEPARIN SOD 5,000 UNIT/0.5 ML VIAL SQ SCH (19:37)
[2020-01-24] MEDS: HYDROmorphone INJ 0.5 MG/0.5 ML SYR IV PRN (21:51)
[2020-01-24 22:08] LABS: BUN Creatinine Ratio 32.5 (10-20); Calcium 8.2 mg/dl (8.5-10.1); Creatinine Clr Calc Pharmacy 82.4 ml/min; Est GFR (African American) 116.2; Est GFR (Non-African American) 100.3; Potassium 4.1 mmol/L (3.5-5.1)
[2020-01-25] MEDS: ONDANSETRON INJ 2 MG/ML 2 ML VIAL IV PRN ×3 (02:46→21:36)
[2020-01-25] MEDS: SODIUM CHLORIDE 0.9% 1000ML 1,000 ML IV SCH (05:03)
[2020-01-25 06:21] LABS: Albumin Level 2.5 gm/dl (3.4-5.0); BUN Creatinine Ratio 32.4 (10-20); Creatinine Clr Calc Pharmacy 76.5 ml/min; Est GFR (African American) 113.4; Est GFR (Non-African American) 97.8; Magnesium 1.9 mg/dl (1.8-2.4); Potassium 4.1 mmol/L (3.5-5.1)
[2020-01-25 06:24] LABS: Albumin Globulin Ratio 0.9 (0.9-2); Bilirubin,Total 0.5 mg/dl (0.2-1); Globulin 2.8 gm/dl (2.5-4.0); Phosphorus 2.9 mg/dl (2.5-4.9); Total Protein 5.3 gm/dl (6.4-8.2)
[2020-01-25] MEDS ORDERED: FAMOTIDINE 20 MG in SYRINGE 3 ML IV SCH (09:00)
[2020-01-25] MEDS: VITAMIN B COMPLEX TAB PO SCH (09:42)
[2020-01-25] MEDS: HEPARIN SOD 5,000 UNIT/0.5 ML VIAL SQ SCH ×2 (09:45→21:23)
--- NOTE | 2020-01-25 12:25 | Hospitalist Progress Note ---
Date of Service January 25, 2020 Assessment & Plan (1) Intractable nausea and vomiting: Suspect chemotherapy-induced vs. from her cancer - Hold capecitabine - Discuss with oncologist, Dr. Myles. - Continue ondansetron & metoclopramide (2) Acute hyponatremia: Suspect hypovolemic rather than hypervolemia from liver failure, though SIADH may be playing a role given the lowering of Na despite IV fluids. - Will stop IV fluids and get urine lytes this afternoon with repeat check of Na. (3) Abdominal ascites: Secondary to underlying cancer versus chemoradiation. LFTs stable. Possible hyponatremia due to liver failure, although her overall fluid status does not appear to be hypervolemic. - Will get limited ultrasound to see if there is a pocket for paracentesis. (4) Cholangiocarcinoma: Irresectable intrahepatic cholangiocarcinoma. - Hold capecitabine until discussed with oncologist. (5) Back pain: Suspected due to ascites as above. (6) Severe protein-calorie malnutrition: Consult hand sprayer for advice regarding supplementation. (7) GERD (gastroesophageal reflux disease): - Continue famotidine IV 20mg daily until she can take PO. (8) DVT prophylaxis: Heparin 5000 units BID. Admission and Anticipated Discharge Date Admission Date: January 24, 2020 Subjective Some small, bilious emesis this morning, but none otherwise. She has had nausea overnight which prevented her from sleeping. Reports no fevers/chills, chest pain, shortness of breath. Physical Exam Constitutional: + acute distress, + cachectic and cooperative Eyes: EOM intact bilaterally; no conjunctival abnormality ENMT: external ear and nose normal, oropharynx normal Neck: trachea midline, no thyromegaly normal visual inspection Respiratory: normal respiratory effort, lungs clear to auscultation no respiratory distress Cardiovascular: RRR, no murmur, no edema Gastrointestinal (Abdomen): Inspection/Auscultation: + abdomen distended and normal bowel sounds Percussion/Palpation: abdomen soft and + ascites; abdomen nontender, no guarding and abdomen not rigid Musculoskeletal: no cyanosis or clubbing, extremities motor strength 5/5 Skin: no rashes, warm and dry Neurologic: moves all extremities and awake Psychiatric: Orientation: alert, oriented to person and cooperative Results & Data Results & Data ([facility]) Vital Signs (Past 12 Hours) Vital Signs Temp Pulse Resp BP Pulse Ox 01/25/20 11:00 36.6 C 75 16 145/79 H 98 01/25/20 07:00 36.5 C 70 16 149/87 H 97 01/25/20 03:02 36.7 C 73 20 147/79 H 95 PG Care Time/CCT Total # of Minutes Spent Total Time Spent with Patient: Total time spent is greater than 50% in coordination of care (as documented) at patient's floor/unit and/or counseling patient: Coding Level of Care Code 45367 Subseq Hosp Care Lvl 3 Diagnoses Intractable nausea and vomiting R11.2 Acute hyponatremia E87.1 Abdominal ascites R18.8 Ascites type: other type Cholangiocarcinoma C22.1 Back pain M54.9 Back pain laterality: unspecified Back pain location: back pain in unspecified location Chronicity: acute Severe protein-calorie malnutrition E43 GERD (gastroesophageal reflux disease) K21.9 DVT prophylaxis Z29.9 (1) Abdominal ascites Ascites type: other type Qualified Code(s): R18.8 - Other ascites (2) Back pain Back pain laterality: unspecified Back pain location: back pain in unspecified location Chronicity: acute Qualified Code(s): M54.9 - Dorsalgia, unspecified
[2020-01-25] MEDS: HYDROmorphone INJ 0.5 MG/0.5 ML SYR IV PRN ×2 (14:13→21:36)
--- NOTE | 2020-01-25 15:02 | Ultrasound Report ---
ULTRASOUND ASCITES CHECK CLINICAL HISTORY: Abdominal ascites. COMPARISON STUDY: Abdominal CT dated 01/24/2020. FINDINGS: Real-time grayscale sonography of all 4 quadrants of the abdomen is performed to assess for abdominal ascites. There is a small volume of abdominopelvic ascites. The largest pocket is seen in the left lower quadrant. IMPRESSION: Small volume of abdominopelvic ascites. This is likely insufficient for therapeutic parac entesis. Electronically signed by: Meño Howe M.D. 01/25/2020 3:01 PM
[2020-01-25 17:21] LABS: BUN Creatinine Ratio 36.3 (10-20); Calcium 8.1 mg/dl (8.5-10.1); Creatinine Clr Calc Pharmacy 69.1 ml/min; Est GFR (African American) 109.7; Est GFR (Non-African American) 94.6; Potassium 4.4 mmol/L (3.5-5.1)
[2020-01-25] MEDS: ATENOLOL 50 MG TABLET PO SCH (17:45)
[2020-01-25] MEDS ORDERED: ALUMINUM/MAGNESIUM/SIMETH (MAALOX MAX) 30 ML UDC PO PRN (20:11)
[2020-01-25] MEDS ORDERED: FAMOTIDINE 20 MG TAB PO SCH (21:00)
[2020-01-25] MEDS: ASPIRIN 81 MG ECTAB PO SCH (21:22)
[2020-01-25] MEDS: ASCORBIC ACID 500 MG TAB PO SCH (21:22)
[2020-01-25] MEDS: FAMOTIDINE 20 MG in SYRINGE 3 ML IV SCH (21:23)
[2020-01-26] MEDS: ONDANSETRON INJ 2 MG/ML 2 ML VIAL IV PRN (04:35)
[2020-01-26] MEDS: HYDROmorphone INJ 0.5 MG/0.5 ML SYR IV PRN (04:42)
[2020-01-26 06:21] LABS: Hematocrit (blood only) 42.1 % (37-47); Hemoglobin 15.3 g/dL (12.0-16.0); Mean Corpuscular Hemoglobin 34.8 pg (25-34); Mean Corpuscular Hgb Conc 36.3 g/dL (32-36); Mean Corpuscular Volume 95.7 fL (80-100); Mean Platelet Volume 9.9 fL (7.4-10.4); Nucleated RBC # (auto) 0.07 K/uL (0-0); Nucleated RBC % (auto) 1.9 %; Platelet Count 122 K/uL (130-400); RDW Coefficient of Variation 16.8 % (11.5-14.5); RDW Standard Deviation 52.8 fL (36.4-46.3); White Blood Count 3.73 K/uL (4.8-10.8)
[2020-01-26 06:49] LABS: Albumin Level 2.7 gm/dl (3.4-5.0); BUN Creatinine Ratio 36.5 (10-20); Calcium 9.3 mg/dl (8.5-10.1); Creatinine Clr Calc Pharmacy 54.8 ml/min; Est GFR (Non-African American) 78.6; Magnesium 2.7 mg/dl (1.8-2.4); Potassium 4.4 mmol/L (3.5-5.1)
[2020-01-26 06:58] LABS: Albumin Globulin Ratio 1.1 (0.9-2); Bilirubin,Total 1.2 mg/dl (0.2-1); Globulin 2.6 gm/dl (2.5-4.0); Total Protein 5.3 gm/dl (6.4-8.2)
[2020-01-26] MEDS: FAMOTIDINE 20 MG in SYRINGE 3 ML IV SCH (08:54)
[2020-01-26] MEDS: HEPARIN SOD 5,000 UNIT/0.5 ML VIAL SQ SCH (08:55)
--- NOTE | 2020-01-26 12:04 | Hospitalist Progress Note ---
Date of Service January 26, 2020 Assessment & Plan (1) Intractable nausea and vomiting: Suspect chemotherapy-induced vs. from her cancer. Abdominal u/s on 01/24 showed only small ascites that was likely not amenable to paracentesis. Discussed with Dr. Myles who feels diagnostic paracentesis not needed as reaction to chemo-radiation is likely explanation. - Discussed with her oncologist, Dr. Myles & her radiation oncologist Dr. Palafox on 01/24. Dr. Myles feels this is likely more related to her chemo-radiation rather than progressive cancer or SBP. - Hold capecitabine & radiation at this time. - Continue ondansetron & metoclopramide -> Patient does not want a lot of these as she feels they cause her constipation. Declined this morning. (2) Acute hyponatremia: Likely due to both hypovolemia and SIADH. Urine osms were ~1000 pointing to some element of SIADH. - Hold IV fluids - Free water restriction. - Will get AM cortisol level tomorrow. (3) Abdominal ascites: Secondary to underlying cancer versus chemoradiation. LFTs stable. Possible hyponatremia due to liver failure, although her overall fluid status does not appear to be hypervolemic. - U/s abdomen on 01/24 showed small ascites; not really amenable to paracentesis. (4) Cholangiocarcinoma: Irresectable intrahepatic cholangiocarcinoma. - Hold capecitabine & radiation. (5) Back pain: Suspected due to ascites as above. (6) Severe protein-calorie malnutrition: Consult food safety director for advice regarding supplementation. (7) GERD (gastroesophageal reflux disease): - H2 kentrell PRN (8) DVT prophylaxis: Heparin 5000 units Q12h Admission and Anticipated Discharge Date Admission Date: January 24, 2020 Subjective Still with a headache and continued nausea. No emesis recently. Reports no fevers/chills, chest pain, shortness of breath, abdominal pain. Physical Exam Constitutional: + acute distress, + cachectic and cooperative Eyes: EOM intact bilaterally; no conjunctival abnormality ENMT: external ear and nose normal, oropharynx normal Neck: trachea midline, no thyromegaly normal visual inspection Respiratory: normal respiratory effort, lungs clear to auscultation no respiratory distress Cardiovascular: RRR, no murmur, no edema Gastrointestinal (Abdomen): Inspection/Auscultation: + abdomen distended and normal bowel sounds Percussion/Palpation: abdomen soft and + ascites; abdomen nontender, no guarding and abdomen not rigid Musculoskeletal: no cyanosis or clubbing, extremities motor strength 5/5 Skin: no rashes, warm and dry Neurologic: moves all extremities and awake Psychiatric: Orientation: alert, oriented to person and cooperative Results & Data Results & Data ([facility]) Vital Signs (Past 12 Hours) Vital Signs Temp Pulse Pulse Resp BP Pulse Ox 01/26/20 07:07 36.3 C L 86 20 155/82 H 100 01/26/20 03:46 36.4 C L 80 20 152/92 H 99 PG Care Time/CCT Total # of Minutes Spent Total Time Spent with Patient: Total time spent is greater than 50% in coordination of care (as documented) at patient's floor/unit and/or counseling patient: Coding Level of Care Code 20392 Subseq Hosp Care Lvl 2 Diagnoses Intractable nausea and vomiting R11.2 Acute hyponatremia E87.1 Abdominal ascites R18.8 Ascites type: other type Cholangiocarcinoma C22.1 Back pain M54.9 Back pain laterality: unspecified Back pain location: back pain in unspecified location Chronicity: acute Severe protein-calorie malnutrition E43 GERD (gastroesophageal reflux disease) K21.9 DVT prophylaxis Z29.9 (1) Abdominal ascites Ascites type: other type Qualified Code(s): R18.8 - Other ascites (2) Back pain Back pain laterality: unspecified Back pain location: back pain in unspecified location Chronicity: acute Qualified Code(s): M54.9 - Dorsalgia, unspecified
[2020-01-26] MEDS ORDERED: FAMOTIDINE 10 MG TABLET PO PRN (12:07)
[2020-01-26] MEDS: VITAMIN B COMPLEX TAB PO SCH (13:02)
--- NOTE | 2020-01-26 16:46 | Billing Data ---
Date of Service January 26, 2020 Coding Level of Care Code 10346 Prolonged Care (int'l) Comment In the room from 9:00am to 9:15am and 4:15pm to 4:35pm.
[2020-01-26 17:13] LABS: Oxygen Saturation VBG 88.5 %; pH VBG 7.46 (7.36-7.41)
[2020-01-26 17:14] LABS: Hematocrit (blood only) 39.8 % (37-47); Hemoglobin 14.4 g/dL (12.0-16.0); Mean Corpuscular Hemoglobin 34.6 pg (25-34); Mean Corpuscular Volume 95.7 fL (80-100); Nucleated RBC # (auto) 0.07 K/uL (0-0); Nucleated RBC % (auto) 1.4 %; RDW Coefficient of Variation 17.2 % (11.5-14.5); RDW Standard Deviation 52.7 fL (36.4-46.3); Red Blood Count 4.16 M/uL (4.2-5.4)
[2020-01-26 17:26] LABS: INR 1.6 (0.9-1.1); Partial Thromboplastin Ratio 0.9; Partial Thromboplastin Time 26.2 Seconds (21.0-31.0); Prothrombin Time 16.8 Seconds (9.0-12.0)
[2020-01-26 17:27] LABS: Albumin Level 2.4 gm/dl (3.4-5.0); BUN Creatinine Ratio 37.5 (10-20); Calcium 8.8 mg/dl (8.5-10.1); Creatinine Clr Calc Pharmacy 47.6 ml/min; Est GFR (African American) 76.7; Est GFR (Non-African American) 66.2; Potassium 4.6 mmol/L (3.5-5.1)
[2020-01-26 17:30] LABS: Bilirubin,Total 1.2 mg/dl (0.2-1); Globulin 2.5 gm/dl (2.5-4.0); Total Protein 4.9 gm/dl (6.4-8.2)
[2020-01-26] MEDS ORDERED: SODIUM CHLORIDE 0.9% 1000ML 1,000 ML IV ONE (17:39)
[2020-01-26 17:42] LABS: Basophils # (auto) 0.01 K/uL (0-0.2); Basophils % (auto) 0.2 %; Eosinophils # (auto) 0.01 K/uL (0-0.5); Eosinophils % (auto) 0.2 %; Immature Granulocytes # (auto) 0.05 K/uL (0.00-0.02); Lymphocytes # (auto) 0.39 K/uL (1.2-3.4); Lymphocytes % (auto) 7.8 %; Mean Corpuscular Hgb Conc 36.2 g/dL (32-36); Monocytes # (auto) 1.04 K/uL (0.11-0.59); Monocytes % (auto) 20.8 %; Platelet Count 87 K/uL (130-400); Platelet Estimate Decreased (Normal); Toxic Granulation 2+
[2020-01-26] MEDS ORDERED: PHYTONADIONE 5 MG in SODIUM CHLORIDE 0.9% 50 ML IV ONE (18:00)
[2020-01-26 18:47] LABS: Fibrinogen 350 mg/dl (184-400)
[2020-01-26] MEDS ORDERED: Nursing to Pharmacy Communication ONE (19:38)
[2020-01-26] MEDS: SODIUM CHLORIDE 0.9% 1000ML 1,000 ML IV SCH (20:13)
[2020-01-26] MEDS: ASCORBIC ACID 500 MG TAB PO SCH (20:17)
[2020-01-26] MEDS: ATENOLOL 50 MG TABLET PO SCH (20:18)
[2020-01-26] MEDS ORDERED: LACTULOSE SYRUP 20 GM/30 ML UDC PO SCH (21:00)
--- NOTE | 2020-01-26 21:17 | Communication Note ---
Date of Service: January 26, 2020 Was notified that the pt was unable to follow commands and was unable to drink the liquid lactulose. An order was placed for a lactulose enema and the liquid held. Resident Activity Tracking Resident Involvement: Permanent Waver Coverage Note Care Provided: Adult [facility]
--- NOTE | 2020-01-26 21:55 | Ultrasound Report ---
US abdomen limited HISTORY: Ascites Ascites check, liver, and duct system.. COMPARISON: 01/25/2020 FINDINGS: This examination is performed and confirms presence of a small amount of abdominal and pelvic ascites . This is unchanged from the prior exam. Pancreas is not well seen due to overlying bowel content. A stent is present within the hepatic duct. There is fatty infiltration of liver. Common bile duct measures 6 mm. Gallbladder is not well seen due to overlying bowel content. Right ki dney is negative for hydronephrosis.: . IMPRESSION: 1. Limited exam due to overlying bowel content. 2. Small amount of ascites unchanged from the prior exam. 3. Fatty infiltration of liver. 4. Normal caliber bile ducts. 5. Stent is identified within the common bile duct. ACT 112: Negative or not required by law. The above report was generated using voice recognition software. It may contain grammatical, syntax or spelling errors. Electronically signed by: Silverio Chambers M.D. 01/26/2020 9:53 PM
--- NOTE | 2020-01-26 21:56 | Ultrasound Report ---
Study: Upper abdominal Doppler evaluation HISTORY: Pain. Portal venous thrombosis. COMPARISON: None. FINDINGS: The hepatic and portal venous structures are patent. Flow is normal. Hepatic artery is patent with normal vascular flow characteristics. IMPRESSION: The hepatic and portal venous structures are within normal limits. Normal-appearing hepat ic artery. Electronically signed by: Silverio Chambers M.D. 01/26/2020 9:55 PM
[2020-01-26] MEDS: LACTULOSE 200 GM, WATER, STERILE IRRIG 700 ML, BARCODE IDENTIFIER 1 EA PR SCH (22:27)
[2020-01-27] MEDS: LACTULOSE 200 GM, WATER, STERILE IRRIG 700 ML, BARCODE IDENTIFIER 1 EA PR SCH ×2 (05:53→17:30)
[2020-01-27] MEDS ORDERED: METOPROLOL TARTRATE 1 MG/ML VIAL IV STA (06:40)
--- NOTE | 2020-01-27 06:43 | Communication Note ---
Date of Service: January 27, 2020 Notified that patient had converted to sustained atrial fibrillation with HR>100. Reported BP of of 137/94 with HR 137. Stat EKG ordered with trops, AM labs pending for K and Mag levels at the time of this writing. Echo ordered and consult placed to cardiology. One dose of IV Lopressor 5mg ordered. Resident Activity Tracking Resident Involvement: Gamb Cutter Coverage Note Care Provided: Adult Hospital Medicine
[2020-01-27 07:17] LABS: Albumin Level 2.4 gm/dl (3.4-5.0); BUN Creatinine Ratio 46.2 (10-20); Calcium 8.4 mg/dl (8.5-10.1); Creatinine Clr Calc Pharmacy 47.6 ml/min; Est GFR (African American) 76.7; Est GFR (Non-African American) 66.2; Magnesium 2.6 mg/dl (1.8-2.4); Potassium 4.6 mmol/L (3.5-5.1)
[2020-01-27 07:20] LABS: Albumin Globulin Ratio 1.3 (0.9-2); Bilirubin,Total 1.4 mg/dl (0.2-1); Globulin 1.9 gm/dl (2.5-4.0); Total Protein 4.3 gm/dl (6.4-8.2)
[2020-01-27 08:33] LABS: Hematocrit (blood only) 36.8 % (37-47); Hemoglobin 13.5 g/dL (12.0-16.0); Mean Corpuscular Hemoglobin 35.1 pg (25-34); Mean Corpuscular Hgb Conc 36.7 g/dL (32-36); Mean Corpuscular Volume 95.6 fL (80-100); Mean Platelet Volume 12.5 fL (7.4-10.4); Nucleated RBC # (auto) 0.07 K/uL (0-0); Platelet Count 55 K/uL (130-400); RDW Coefficient of Variation 17.7 % (11.5-14.5); RDW Standard Deviation 53.4 fL (36.4-46.3); Red Blood Count 3.85 M/uL (4.2-5.4); White Blood Count 7.27 K/uL (4.8-10.8)
[2020-01-27 08:38] LABS: Fibrinogen 334 mg/dl (184-400); INR 1.7 (0.9-1.1); Prothrombin Time 17.8 Seconds (9.0-12.0)
[2020-01-27] MEDS ORDERED: PIPERACILL/TAZOBAC CONSULT ACTIVE PRN ×2 (09:24→09:26)
[2020-01-27] MEDS ORDERED: PIPERACILLIN/TAZOBACTAM 3.375 GM in DEXTROSE 5% 100 ML IV SCH (09:30)
[2020-01-27] MEDS ORDERED: PIPERACILLIN/TAZOBACTAM 3.375 GM in DEXTROSE 5% 100 ML IV ONE (09:45)
--- NOTE | 2020-01-27 09:51 | Anesthesiology Consultation ---
Date of Service January 27, 2020 The patient is very high risk but is bleeding due to her liver. She is in afib with RVR and has elevated troponin. I spoke with Dr. Ferrera and Dr. Salinas who both state that the benefits of the procedure outweigh any cardiac risks. Assessment & Plan (1) Encounter for pre-operative examination: Chart Review Chart Review: Acceptable Risk for Surgery (elevated risk but procedure is necessary) and Patient NOT seen in Pre Admission Testing Consults Requested none History Surgery Operation Date: 01/27/20 10:00 Proposed Procedures p Endoscopic Retrograde Cholangiopancreato Cindy Haro MD Operation Date: 01/28/20 07:00 Proposed Procedures p Endoscopic Retrograde Cholangiopasymonerenando Haro MD Height/Weight Height: 5 ft 2 in Weight: 48.9 kg Allergies Allergy/AdvReac Type Severity Reaction Status Date / Time No Known Allergies Allergy Verified 01/24/20 11:07 Medications Home Medications Medication Instructions Recorded Confirmed Last Taken ascorbic acid (vitamin C) [Vitamin 1,000 mg PO HS 08/05/18 01/24/20 12/03/18 C] aspirin 81 mg PO HS 08/05/18 01/24/20 12/03/18 atenolol 50 mg PO HS 08/05/18 01/24/20 12/09/18 dicyclomine 10 mg PO DAILY PRN 08/05/18 01/24/20 08/05/18 19:00 vitamin E 400 unit PO HS 08/05/18 01/24/20 12/03/18 hyoscyamine sulfate 0.125 mg tablet 0.125 mg PO QID PRN 11/30/19 01/24/20 Unknown vitamin B complex 1 tab PO DAILY 11/30/19 01/24/20 Unknown capecitabine 150 mg tablet 150 mg PO BID 12/27/19 01/24/20 Unknown capecitabine 500 mg tablet 1,000 mg PO BID tab 12/27/19 01/24/20 Unknown ondansetron HCl 8 mg tablet 8 mg PO Q8H 01/10/20 01/24/20 Unknown Active Medications Generic Name Dose Route Start Last Admin Trade Name Freq PRN Reason Stop Dose Admin Acetaminophen 650 mg 01/24/20 16:53 01/25/20 09:41 Tylenol PO 02/23/20 16:52 650 mg Q4H PRN Administration pain/fever Al Hydrox/Mg Hydrox/Simethicone 15 ml 01/25/20 20:11 01/25/20 20:24 Maalox Max PO 02/24/20 20:10 15 ml Q6H PRN Administration Heartburn Ascorbic Acid 1,000 mg 01/24/20 21:00 01/26/20 20:17 Vitamin C PO 02/23/20 20:59 Not Given HS PHAM Atenolol 50 mg 01/24/20 21:00 01/26/20 20:18 Tenormin PO 02/23/20 20:59 50 mg HS PHAM Administration Lactulose 200 gm/ Sterile 0 gm 01/26/20 22:00 01/27/20 05:53 Water 700 ml/ BARCODE [place] 02/25/20 21:59 200 gm IDENTIFIER 1 ea Q8H PHAM Administration Dicyclomine HCl 10 mg 01/24/20 16:53 01/25/20 18:15 Bentyl PO 02/23/20 16:52 10 mg DAILY PRN Administration Pain Hydromorphone HCl 0.5 mg 01/24/20 16:03 01/26/20 04:42 Dilaudid IV 02/07/20 16:02 0.5 mg Q3H PRN Administration Moderate Pain Sodium Chloride 1,000 mls @ 80 mls/hr 01/26/20 17:45 01/27/20 10:02 Nss 1000ml IV 02/25/20 17:44 80 mls/hr .[id number] PHAM Administration Lactulose 20 gm 01/26/20 21:00 01/26/20 20:18 Chronulac PO 02/25/20 20:59 Not Given BID PHAM Metoclopramide HCl 10 mg 01/24/20 16:53 01/26/20 00:22 Reglan IV 02/23/20 16:52 10 mg Q6H PRN Administration Nausea and Vomiting Ondansetron HCl 4 mg 01/24/20 16:53 01/26/20 04:35 Zofran IV 02/23/20 16:52 4 mg Q6H PRN Administration Nausea Vitamin B Complex 1 tab 01/25/20 09:00 01/27/20 10:02 Vitamin B Complex PO 02/24/20 08:59 Not Given DAILY PHAM Zolpidem Tartrate 5 mg 01/24/20 16:53 04/13/20 19:35 Ambien PO 02/23/20 16:52 5 mg HS PRN Administration Sleep Past Medical History Medical History Atrial fibrillation Biliary stricture (Inactive) Elevated troponin GERD (gastroesophageal reflux disease) Well controlled. 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 Brother Coronary heart disease stent placement done Sister No problems noted. Past Surgical History Surgical History History of ERCP with multiple stent placements Hx of hand surgery left as child Social History Smoking Status: Current every day smoker tobacco type: cigarettes Smoking cigarettes per day: 5 Hx Alcohol Use: No (socially) Alcohol type: wine alcohol intake frequency: holidays/special occasions only Hx Substance Use: No substance use type: does not use Physical Exam Vital Signs Last Vital Signs Temp 36.3 C L 01/27/20 00:12 Pulse 78 01/27/20 07:11 Resp 18 01/27/20 07:11 BP 94/55 L 01/27/20 07:11 Pulse Ox 100 01/27/20 07:11 Testing Laboratory Results 01/27/20 08:05 01/27/20 06:41 PT 17.8 Seconds (9.0-12.0) H 01/27/20 08:05 INR 1.7 (0.9-1.1) H 01/27/20 08:05 APTT 26.2 Seconds (21.0-31.0) 01/26/20 16:57 Urine Color Dark Yellow 01/27/20 09:44 Urine Appearance Clear (Clear) 01/27/20 09:44 Urine pH 6.0 (4.5-7.5) 01/27/20 09:44 Ur Specific [place] 1.032 (1.000-1.030) H 01/27/20 09:44 Urine Protein Negative (Negative) 01/27/20 09:44 Urine Glucose (UA) Negative (Negative) 01/27/20 09:44 Urine Ketones Trace (Negative) H 01/27/20 09:44 Urine Nitrite Negative (Negative) 01/27/20 09:44 Ur Leukocyte Esterase Trace (Negative) H 01/27/20 09:44 Urine WBC (Auto) 1-5 /hpf (0-5) 01/27/20 09:44 Urine RBC (Auto) 0-4 /hpf (0-4) 01/27/20 09:44 U Hyaline Cast (Auto) 5-10 /lpf (0-5) H 01/27/20 09:44 U Epithel Cells (Auto) 20-30 /lpf (0-5) H 01/27/20 09:44 Urine Bacteria (Auto) Negative (Negative) 01/27/20 09:44 Electrocardiogram Date: 01/27/20 Findings: + NSST changes and + AFIB @ (123) Chest X-Ray Date: 01/27/20 SINGLE VIEW CHEST CLINICAL HISTORY: Sepsis. FINDINGS: An AP, portable, upright chest radiograph is compared to study dated 01/16/2018 and correlated with PET CT dated 11/24/[address] abdominal CT dated 01/24/2020. The examination is degraded by portable technique and patient rotation. The cardiomediastinal silhouette is unremarkable. There are bibasilar dependent airspace opacities. No large pleural effusion or pneumothora x is seen. The skeletal structures are osteopenic. The bony thorax is grossly intact. The common bile duct stent is noted in the right upper quadrant. IMPRESSION: Bibasilar airspace opacities likely represent atelectasis. Correlate clinically for evidence of a superimposed infectious/inflammatory pneumonitis. ACT 112: Negative or not required by law. Electronically signed by: Meño Howe M.D. 01/27/2020 9:51 AM Dictated: 01/27/20948 Transcribed: 01/27/20948
--- NOTE | 2020-01-27 09:52 | XRay Report ---
SINGLE VIEW CHEST CLINICAL HISTORY: Sepsis. FINDINGS: An AP, portable, upright chest radiograph is compared to study dated 01/16/2018 and correlate d with PET CT dated 11/24/[address] abdominal CT dated 01/24/2020. The examination is degraded by portable technique and patient rotation. The cardiomediastinal silhouette is unremarkable. There a re bibasilar dependent airspace opacities. No large pleural effusion or pneumothorax is seen. The ske letal structures are osteopenic. The bony thorax is grossly intact. The common bile duct stent is not ed in the right upper quadrant. IMPRESSION: Bibasilar airspace opacities likely represent atelectasis. Correlate clinically for evide nce of a superimposed infectious/inflammatory pneumonitis. ACT 112: Negative or not required by law. Electronically signed by: Meño Howe M.D. 01/27/2020 9:51 AM
[2020-01-27] MEDS ORDERED: INDOMETHACIN 50 MG SUPP PR SCH (10:00)
[2020-01-27] MEDS ORDERED: SUCCINYLCHOLINE CHLORIDE 20 MG/ML 10 ML VIAL ONE (10:01)
[2020-01-27] MEDS ORDERED: fentaNYL citrate 100 MCG/2 ML VIAL ONE (10:01)
[2020-01-27] MEDS ORDERED: ONDANSETRON INJ 2 MG/ML 2 ML VIAL ONE (10:01)
[2020-01-27] MEDS ORDERED: LIDOCAINE HCL 2% 2 ML VIAL/AMP(20MG/ML) INFIL ONE (10:01)
[2020-01-27] MEDS ORDERED: ROCURONIUM BROMIDE 10 MG/ML 5 ML VIAL ONE (10:01)
[2020-01-27] MEDS ORDERED: PROPOFOL IV EMULSION 10 MG/ML 20 ML VIAL IV ONE (10:01)
[2020-01-27] MEDS: VITAMIN B COMPLEX TAB PO SCH (10:02)
[2020-01-27] MEDS: SODIUM CHLORIDE 0.9% 1000ML 1,000 ML IV SCH ×2 (10:02→15:48)
--- NOTE | 2020-01-27 10:06 | Gastrointestinal Consultation ---
Date of Consultation January 27, 2020 Supervising Physician Co-Signing Physician Notes I performed a history and physical examination of the patient today, including specifically on physical exam - soft abdomen. I have discussed the patient's management with the advanced practitioner. Please refer to the nurse practitioner's note for the documented findings and plan of care. EGD for UGI bleeding. ERCP for stent exchange, no pneumobilia noted on CT scan suggesting stent occlusion. Suspect liver cirrhosis with ongoing decompensation. I explained to the sister her prognosis, risk and benefit of the procedure and she consented. History of Present Illness Reason for Consultation: Cholangiocarcinoma; encephalopathy Requesting Physician: Dr. Honorio Ferrera Attending Physician: Dr. Julito Haro History of Present Illness Pt is a 64 y/o female w hx of HCV treated w [facility] in 2013, biliary strictures requiring stent placements/exchanges, eventually dx'd w possible metastatic cholangiocarcinoma in 10/2019 through liver mass biopsy. Case had been discussed at tumor boards and she's not a candidate for surgical resection or liver transplant candidate. She had been getting chemoradiation under direction of Dr. Arteaga (oncology) and Dr. Palafox (rad-oncology). She was admitted 3 days ago w progressively worsening n/v, abd distension, poor appetite. Since then her mental status had progressively declined since yesterday afternoon and is currently obtunded. Chart is reviewed. Labs notable for decreasing Plt 55K. Though no leukocytosis, she had been immunosuppressed and her WBC did increase from 3->7. Lactic acid 5.9, LFTs: Tbili 1.4 ,AST 107, ALT 40, AP 48. NH3 228, given lactulose. She developed Afib overnight, seen by Cardiology, Metoprolol pushes will be initiated. CT abd/pelvis showed moderate amt of abd ascites, also small esophageal varices. Abd exam revealed firm abd, no signs of tenderness on palpation. While NGT is being placed, noted gastric output dark brown w small clots suspicious for GI bleeding. ASSESSMENT AND PLAN: Pt is a 64 y/o female w hx of treated HCV, cholangiocarcinoma on chemoradiation, seen for progressively worse AMS since yesterday afternoon. Chart reviewed showed elevated LFTs, rising WBC and LA. Hx of biliary stent placement for stricture last done in 09/2020. Suspect her biliary stent is getting occluded and she is developing sepsis. While NGT was placed to clear stomach contents, noted output also suspicious for GI bleeding. - NPO - Protonix and Octreotide: both bolus IV and gtt - Zosyn IV started - NGT to LIS - Plan for EGD/ERCP w stent exchange in OR by Dr. Haro. Consent for proced ures given verbally over phone by pt's sister Mary Suarez - Needs Head CT for AMS - U/S paracentesis w fluid analysis and cytology after EGD/ERCP completed Allergies Allergy/AdvReac Type Severity Reaction Status Date / Time No Known Allergies Allergy Verified 01/24/20 11:07 Home Medications Home Medications Medication Instructions Recorded Confirmed Type ascorbic acid (vitamin C) [Vitamin 1,000 mg PO HS 08/05/18 01/24/20 History C] aspirin 81 mg PO HS 08/05/18 01/24/20 History atenolol 50 mg PO HS 08/05/18 01/24/20 History dicyclomine 10 mg PO DAILY PRN 08/05/18 01/24/20 History vitamin E 400 unit PO HS 08/05/18 01/24/20 History hyoscyamine sulfate 0.125 mg tablet 0.125 mg PO QID PRN 11/30/19 01/24/20 History vitamin B complex 1 tab PO DAILY 11/30/19 01/24/20 History capecitabine 150 mg tablet 150 mg PO BID 12/27/19 01/24/20 History capecitabine 500 mg tablet 1,000 mg PO BID tab 12/27/19 01/24/20 History ondansetron HCl 8 mg tablet 8 mg PO Q8H 01/10/20 01/24/20 History Patient History Medical History Atrial fibrillation Biliary stricture (Inactive) Elevated troponin GERD (gastroesophageal reflux disease) Well controlled. 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 Brother Coronary heart disease stent placement done Sister No problems noted. Social History Preferred Language: [place] Communication Ability: Effective Soda Clerk Required: No Beliefs That Will Affect Care: None marital status: Single Current Living Situation: Alone Other Information That Helps Us Care for You: No Feels Safe at Home: Yes Safety Concerns: Feels Safe At This Time Smoking Status: Current every day smoker Tobacco Type: cigarettes ; Cigarettes Per Day: 5 ; Second Hand Exposure: No ; Hx Alcohol Use: No (socially) Hx Substance Use: No caffeine: Yes (2 cups a day) during the past year weight has: decreased > 10 lbs Dental Care, Regularly: Yes Review of Systems Review of Systems: Unobtainable due to reduced consciousness Physical Exam Constitutional: + ill appearing responding mostly by pain stimuli (sternal rub) Eyes: + scleral abnormality (icteric) ENMT: external ear and nose normal, oropharynx normal Respiratory: normal respiratory effort, lungs clear to auscultation Cardiovascular: Rate/Rhythm: + irregularly irregular Heart Sounds: no gallop and no murmur Skin: no rashes, warm and dry + jaundice Psychiatric: Obtunded, responsive to pain stimuli Lymphatic: no lymphedema Results & Data ([facility]) Vital Signs (Past 12 Hours) Vital Signs Temp Pulse Pulse Pulse Resp BP BP 01/27/20 07:11 78 18 94/55 L 01/27/20 06:49 127 H 137/94 01/27/20 00:12 36.3 C L 97 H 93 H 20 150/83 H Pulse Ox 01/27/20 07:11 100 01/27/20 06:49 01/27/20 00:12 93
[2020-01-27] MEDS ORDERED: PANTOPRAZOLE BOLUS/DRIP 1 EA IV STA (10:23)
[2020-01-27 10:27] LABS: Appearance Urine Clear (Clear); Bacteria Urine Automated Negative (Negative); Bilirubin Urine Negative (Negative); Blood Urine Negative (Negative); Color Urine Dark Yellow; Epithelial Cell Urine Auto 20-30 /lpf (0-5); Glucose Urine UA Negative (Negative); Ketones Urine Trace (Negative); Leukocyte Esterase Urine Trace (Negative); Nitrite Urine Negative (Negative); Protein Urine Negative (Negative); RBC Urine Automated 0-4 /hpf (0-4); Specific Gravity Urine 1.032 (1.000-1.030); Urobilinogen Urine Negative (Negative)
--- NOTE | 2020-01-27 10:38 | Palliative Care Consultation ---
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 Patient reports worsening of symptoms for last six weeks since beginning treatment. Patient was first discovered to have biliary stricture in 2018, no malignancy was found at that time. She has undergone multiple biliary stenting procedures. She follows with [facility] heme/onc. Patient continued to have intermittent issues with abdominal pain-- MRI did not show lesion, bile duct brushings were benign. However, CA19-9 remained elevated, occult malignancy was suspected. Patient eventually underwent enhanced liver ultrasound at [facility] in October 2019, with biopsy which confirmed adenocarcinoma: favoring cholangiocarcinoma. Patient's disease was deemed unresectable, she was also deemed not a candidate for liver transplant. She followed up with heme/onc with Dr. Myles of [facility] and started treatment with capecitabine (Xeloda). Now, she presents with the above symptoms. Yesterday, patient was noted to have altered mental status, an ammonia of 228, plt 55k, worsening liver function, lactate 5.9. She was given lactulose, ammonia is down to 38 today but her mental status remains poor. Given her acute change in status, GI is consulted and looks as though they are planning ERCP. Cardiology also consulted as patient converted to atrial fibrillation last night. Patient's daughter, Mary, was contacted regarding patinet's deteriorating condition. Apparently patient has no spouse or children, she currently is a full code. Palliative care is consulted to discuss goals of care. -Patient is lethargic/obtunded. leaving for ERCP then transferring to ICU after. -Called patient's sister, Mary, and spoke at length on phone. Patient is not , has no children. Patient has three siblings: Mary, another sister, and a brother. She also has many nieces and nephews. -Family is very supportive, but thus far, patient has been handling all of her medical issues alone. Mary states that patient is fiercely independent and has not shared many details about her medical condition with the family. -Mary is aware that patient is undergoing treatment, and that she has been having trouble with appetite and increased weakness since starting treatment. Family was getting patient's groceries for her and delivering supplies so patient wouldn't have to go out. Just in the last week, it sounds as though patient was staying with [facility]. Friday is when patient's abdominal pain and symptoms worsened. -As far as goals of care, [facility] shared with the physician that patient would still want to be fully aggressive at this point, and she told me that they have never discussed otherwise. I encouraged her to be more heavily involved from here on out, as patient has a serious disease and further episodes of deterioration can occur. She agreed. To Whitmer's knowledge there is no living will or POA, I again encouraged her to discuss these things with patient. -For now, continue with full code and full treatment. We will follow throughout hospitalization. (2) Intractable nausea and vomiting: (3) Severe protein-calorie malnutrition: (4) Cholangiocarcinoma: History of Present Illness Attending Physician: Honorio eFrrera MD History of Present Illness This 64 year old female patient with PMH hepatitis C, biliary stricture s/p multiple stents and re-stenting, heroic use in 1970s, intrahepatic cholangiocarcinoma currently undergoing treatment with Xeloda, presented to the hospital with abdominal distention and intractable nausea/vomiting. Patient reports worsening of symptoms for last six weeks since beginning treatment. Patient was first discovered to have biliary stricture in 2017, no malignancy was found at that time. She has undergone multiple biliary stenting procedures. She follows with [facility] heme/onc. Patient continued to have intermittent i ssues with abdominal pain-- MRI did not show lesion, bile duct brushings were benign. However, CA19-9 remained elevated, occult malignancy was suspected. Patient eventually underwent enhanced liver ultrasound at [facility] in October 2019, with biopsy which confirmed adenocarcinoma: favoring cholangiocarcinoma. Patient's disease was deemed unresectable, she was also deemed not a candidate for liver transplant. She followed up with heme/onc with Dr. Myles of [facility] and started treatment with capecitabine (Xeloda). Now, she presents with the above symptoms. Yesterday, patient was noted to have altered mental status, an ammonia of 228, plt 55k, worsening liver function, lactate 5.9. She was given lactulose, ammonia is down to 38 today but her mental status remains poor. Given her acute change in status, GI is consulted and looks as though they are planning ERCP. Cardiology also consulted as patient converted to atrial fibrillation last night. Patient's daughter, Mary, was contacted regarding annalisa's deteriorating condition. Apparently patient has no spouse or children, she currently is a full code. Palliative care is consulted to discuss goals of care. Thank you kindly for this consult. Palliative care team will follow as needed. Allergies Allergy/AdvReac Type Severity Reaction Status Date / Time No Known Allergies Allergy Verified 01/24/20 11:07 Home Medications Home Medications Medication Instructions Recorded Confirmed Type ascorbic acid (vitamin C) [Vitamin 1,000 mg PO HS 08/05/18 01/24/20 History C] aspirin 81 mg PO HS 08/05/18 01/24/20 History atenolol 50 mg PO HS 08/05/18 01/24/20 History dicyclomine 10 mg PO DAILY PRN 08/05/18 01/24/20 History vitamin E 400 unit PO HS 08/05/18 01/24/20 History hyoscyamine sulfate 0.125 mg tablet 0.125 mg PO QID PRN 11/30/19 01/24/20 History vitamin B complex 1 tab PO DAILY 11/30/19 01/24/20 History capecitabine 150 mg tablet 150 mg PO BID 12/27/19 01/24/20 History capecitabine 500 mg tablet 1,000 mg PO BID tab 12/27/19 01/24/20 History ondansetron HCl 8 mg tablet 8 mg PO Q8H 01/10/20 01/24/20 History Patient History Medical History Atrial fibrillation Biliary stricture (Inactive) Elevated troponin GERD (gastroesophageal reflux disease) Well controlled. 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 Brother Coronary heart disease stent placement done Sister No problems noted. Social History Preferred Language: Divehi Communication Ability: Effective Display Screen Fabricator Required: No Beliefs That Will Affect Care: None marital status: Single Current Living Situation: Alone Other Information That Helps Us Care for You: No Feels Safe at Home: Yes Safety Concerns: Feels Safe At This Time Smoking Status: Current every day smoker Tobacco Type: cigarettes ; Cigarettes Per Day: 5 ; Second Hand Exposure: No ; Hx Alcohol Use: No (socially) Hx Substance Use: No caffeine: Yes (2 cups a day) during the past year weight has: decreased > 10 lbs Dental Care, Regularly: Yes Review of Systems Review of Systems: Unobtainable due to mental health condition and Unobtainable due to cognitive status Physical Exam Constitutional: + ill appearing; no acute distress ENMT: external ear and nose normal, oropharynx normal Respiratory: normal respiratory effort; no labored breathing Cardiovascular: Rate/Rhythm: + irregularly irregular Neurologic: + obtunded; + not awake Results & Data Vital Signs (Past 12 Hours) Vital Signs Temp Pulse Pulse Pulse Resp BP BP 01/27/20 07:11 78 18 94/55 L 01/27/20 06:49 127 H 137/94 01/27/20 00:12 36.3 C L 97 H 93 H 20 150/83 H Pulse Ox 01/27/20 07:11 100 01/27/20 06:49 01/27/20 00:12 93 Coding Level of Care Code 42687 Inpt Consult Level 3 Diagnoses Goals of care, counseling/discussion Z71.89 Intractable nausea and vomiting R11.2 Severe protein-calorie malnutrition E43 Cholangiocarcinoma C22.1 Time Spent (min) 80 Time Spent Midlevel 80 minutes with >50% of the time spent at bedside with patient and on phone with family discussing condition and GOC.
[2020-01-27] MEDS ORDERED: PANTOprazole 80 MG in DEXTROSE 5% 100 ML IV ONE (10:45)
[2020-01-27] MEDS ORDERED: SODIUM CHLORIDE 0.9% 1000ML 1,000 ML IV ONE (11:00)
[2020-01-27] MEDS ORDERED: ePHEDrine sulfate 50 MG/ML AMP IV PRN (11:02)
[2020-01-27] MEDS ORDERED: fentaNYL citrate 100 MCG/2 ML VIAL IV PRN (11:02)
[2020-01-27] MEDS ORDERED: LABETALOL HCL IV 5 MG/ML 20ML IV PRN (11:02)
[2020-01-27] MEDS ORDERED: ATROPINE SULFATE 0.1 MG/ML 10ML SYR IV PRN (11:02)
[2020-01-27] MEDS ORDERED: PHENYLEPHRINE 100MCG/ML 5ML SYR IV PRN (11:02)
[2020-01-27] MEDS ORDERED: ONDANSETRON INJ 2 MG/ML 2 ML VIAL IV PRN (11:02)
--- NOTE | 2020-01-27 12:17 | Cardiology Consultation ---
Date of Consultation January 27, 2020 Assessment & Plan (1) Atrial fibrillation: (2) Elevated troponin: ASSESSMENT/PLAN: 1. Atrial fibrillation with rapid ventricular response: This is a new diagnosis for her, starting earlier today based on telemetry findings. It is likely in response to her overwhelming acute illness. She is not hemodynamically unstable and therefore, cardioversion not recommended at this time. Would try to avoid amiodarone as there is concern for hepatic failure. Diltiazem is also metabolized by the liver so would try to avoid if possible. Recommend IV metoprolol 5 mg IV q.4 hours for now and can adjust as necessary to improve rate control. Would suspect that with improvement of her underlying acute illness and concern for cholangitis/sepsis, her heart rate would also improve and she may spontaneously convert to sinus rhythm. She has elevated chads Vasc score, but with worsening thrombocytopenia and concern for GI bleeding, the risk of anticoagulation appears to outweigh the benefit at this time. Echocardiogram not unreasonable however can be done when she is stabilized from her acute illness. 2. Elevated troponin: Likely due to her underlying acute illness with concern for cholangitis and sepsis. She did not present with acute coronary syndrome. Would not treat as acute coronary syndrome. Trend troponin until peak. 3. Preoperative cardiac assessment: Was contacted by Dr. diaz regarding elevated troponin. She is acutely ill and has decompensated since yesterday morning according to Dr. Ferrera of the primary service. It does not appear as though her cardiac issues are contributing to her overall decompensation, but rather her cardiac issues are likely in response to her acute underlying issues which appear to predominantly GI in nature. Would not delay GI procedure for ischemic evaluation. 4. Disposition: Cardiology will continue to follow. Patient care discussed with Dr. Ferrera the primary hospitalist service. Thank you for allowing me to participate in the care of your patient. Please call for any other questions or concerns. Sincerely, Braxton Salinas M.D. History of Present Illness Reason for Consultation: "New afib" Requesting Physician: Dr. Piña Attending Physician: Honorio Ferrera MD History of Present Illness Ms. Suarez is a 64-year-old female with history significant for cholangiocarcinoma, biliary stricture, hepatitis C (treated with harvoni therapy), portal vein thrombosis, and hypertension. She was hospitalized on 01/24/2020 with intractable nausea and vomiting which was felt to be secondary to chemotherapy. She was also noted to have acute hyponatremia and was felt to be hypovolemic. Yesterday, she was noted to have acute decompensation later in the day presenting with lethargy and confusion, a reported decline from yesterday morning. She was found to have elevated ammonia level and lactulose was initiated. She was noted to have worsening thrombocytopenia with elevated INR, and elevated lactate. Hospitalist service was worried for acute liver failure. Earlier this morning, at approximately 6:00 a.m., she developed atrial fibrillation with rapid ventricular response. A verbal report from staff suggest that this occurred while she was receiving a lactulose enema. House staff resident, Dr. Piña, was noted by nursing staff and ordered metoprolol 5 mg IV x1, echocardiogram, and cardiology consultation. Stat labs including troponin was also ordered by her at that time. Troponin was noted to be elevated at 0.513. ECG demonstrated atrial fibrillation at [address]/T-wave abnormalities. When presenting to the bedside earlier this morning, Ms. Holguins not conscious. With sternal rub, she would withdraw and partially open her eyes. She was nonverbal. She withdrew at times when attempting examination and would occasionally make a moaning sound. History was unobtainable from the patient herself. History was obtained by reviewing notes, chart, and discussing with Dr. Ferrera of the primary hospitalist service. There had not been any reported chest discomfort or shortness of breath. There were no signs or symptoms to suggest acute coronary syndrome. Review of systems: As above. Review of systems otherwise unobtainable due to patient's mental status. Family history: Unobtainable from patient due to her mental status. According to records, CAD is present in her family, parents and brother. Social history: Unobtainable due to patient's mental status. According to records, she lives alone and smokes cigarettes. She was unaccompanied in her hospital room. Allergies Allergy/AdvReac Type Severity Reaction Status Date / Time No Known Allergies Allergy Verified 01/24/20 11:07 Home Medications Home Medications Medication Instructions Recorded Confirmed Type ascorbic acid (vitamin C) [Vitamin 1,000 mg PO HS 08/05/18 01/24/20 History C] aspirin 81 mg PO HS 08/05/18 01/24/20 History atenolol 50 mg PO HS 10/24/18 04/13/20 History dicyclomine 10 mg PO DAILY PRN 08/05/18 01/24/20 History vitamin E 400 unit PO HS 08/05/18 01/24/20 History hyoscyamine sulfate 0.125 mg tablet 0.125 mg PO QID PRN 11/30/19 01/24/20 History vitamin B complex 1 tab PO DAILY 11/30/19 01/24/20 History capecitabine 150 mg tablet 150 mg PO BID 12/27/19 01/24/20 History capecitabine 500 mg tablet 1,000 mg PO BID tab 12/27/19 01/24/20 History ondansetron HCl 8 mg tablet 8 mg PO Q8H 01/10/20 01/24/20 History Patient History Medical History Atrial fibrillation Biliary stricture (Inactive) Elevated troponin GERD (gastroesophageal reflux disease) Well controlled. 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 Brother Coronary heart disease stent placement done Sister No problems noted. Social History Preferred Language: Mauritian Communication Ability: Effective Geological Aide Required: No Beliefs That Will Affect Care: None marital status: Single Current Living Situation: Alone Other Information That Helps Us Care for You: No Feels Safe at Home: Yes Safety Concerns: Feels Safe At This Time Smoking Status: Current every day smoker Tobacco Type: cigarettes ; Cigarettes Per Day: 5 ; Second Hand Exposure: No ; Hx Alcohol Use: No (socially) Hx Substance Use: No caffeine: Yes (2 cups a day) during the past year weight has: decreased > 10 lbs Dental Care, Regularly: Yes Physical Exam Physical Exam: Gen.: No acute distress. On arousable with verbal stimuli. Does respond to sternal rub and withdraws at times during exam. HEENT: Anicteric sclera. Neck: No JVD. No bruits. Normal carotid upstrokes bilaterally. Cardiac: PMI was nondisplaced. No ventricular heave. Irregularly irregular and tachycardic near 110 bpm. Normal S1-S2. No murmurs, rubs, or gallops. Pulmonary: Clear to auscultation bilaterally without wheezes, rales, or rhonchi. Abdomen: Soft, nondistended, with normo-active bowel sounds. No bruits noted. Extremities: 2+ radial pulses bilaterally. 2+ posterior tibialis pulses bilatera lly. No edema or cyanosis. Results & Data ([facility]) Vital Signs (Past 12 Hours) Vital Signs Temp Pulse Pulse Pulse Resp BP BP 01/27/20 11:11 36.0 C L 121 H 24 01/27/20 10:20 114 H 20 85/63 L 01/27/20 07:11 78 18 01/27/20 06:49 127 H 137/94 BP Pulse Ox 01/27/20 11:11 100/62 93 01/27/20 10:20 92 01/27/20 07:11 94/55 L 100 01/27/20 06:49 Laboratory Results Laboratory Results - last 24 hr 01/26/20 01/26/20 01/26/20 16:57 16:57 16:57 WBC 5.00 RBC 4.16 L Hgb 14.4 Hct 39.8 MCV 95.7 MCH 34.6 H MCHC 36.2 H RDW Std Deviation 52.7 H RDW Coeff of Nish 17.2 H Plt Count 87 L MPV 11.0 H Immature Gran % (Auto) 1.0 Neut % (Auto) 70.0 Lymph % (Auto) 7.8 [place] % (Auto) 20.8 Eos % (Auto) 0.2 Baso % (Auto) 0.2 Immature Gran # (Auto) 0.05 H Neut # (Auto) 3.50 Lymph # (Auto) 0.39 L [place] # (Auto) 1.04 H Eos # (Auto) 0.01 Baso # (Auto) 0.01 Absolute Nucleated RBC 0.07 H Nucleated RBC % (auto) 1.4 Toxic Granulation 2+ Platelet Estimate Decreased L Peripher Smr Path Cons PT 16.8 H INR 1.6 H APTT 26.2 PTT Ratio 0.9 Fibrinogen VBG pH VBG pCO2 VBG pO2 VBG HCO3 VBG O2 Saturation VBG Base Excess Barometric Pressure Sodium 128 L Potassium 4.6 Chloride 99 Carbon Dioxide 18 L Anion Gap 11.0 BUN 34 H Creatinine 0.91 Est Cr Clr Drug Dosing 47.6 Est GFR ( Amer) 76.7 Est GFR (Non-Af Amer) 66.2 BUN/Creatinine Ratio 37.5 H Glucose 148 H Lactate Calcium 8.8 Phosphorus Magnesium Total Bilirubin 1.2 H AST 61 H ALT 28 Alkaline Phosphatase 43 L Ammonia Lactate Dehydrogenase Troponin I Total Protein 4.9 L Albumin 2.4 L Globulin 2.5 Albumin/Globulin Ratio 1.0 Cortisol AM Sample Urine Color Urine Appearance Urine pH Ur Specific [place] Urine Protein Urine Glucose (UA) Urine Ketones Urine Blood Urine Nitrite Urine Bilirubin Urine Urobilinogen Ur Leukocyte Esterase Urine WBC (Auto) Urine RBC (Auto) U Hyaline Cast (Auto) U Epithel Cells (Auto) Urine Bacteria (Auto) Urine Osmolality Nasal Screen MRSA (PCR) Heparin-PF4 Ab Screen 01/26/20 01/26/20 01/26/20 16:57 16:57 16:57 WBC RBC Hgb Hct MCV MCH MCHC RDW Std Deviation RDW Coeff of Nish Plt Count MPV Immature Gran % (Auto) Neut % (Auto) Lymph % (Auto) [place] % (Auto) Eos % (Auto) Baso % (Auto) Immature Gran # (Auto) Neut # (Auto) Lymph # (Auto) [place] # (Auto) Eos # (Auto) Baso # (Auto) Absolute Nucleated RBC Nucleated RBC % (auto) Toxic Granulation Platelet Estimate Peripher Smr Path Cons PT INR APTT PTT Ratio Fibrinogen VBG pH 7.46 H VBG pCO2 25 L VBG pO2 58 VBG HCO3 17 VBG O2 Saturation 88.5 VBG Base Excess -5.0 Barometric Pressure 728.7 Sodium Potassium Chloride Carbon Dioxide Anion Gap BUN Creatinine Est Cr Clr Drug Dosing Est GFR ( Amer) Est GFR (Non-Af Amer) BUN/Creatinine Ratio Glucose Lactate 5.9 H* Calcium Phosphorus Magnesium Total Bilirubin AST ALT Alkaline Phosphatase Ammonia 228.3 H Lactate Dehydrogenase Troponin I Total Protein Albumin Globulin Albumin/Globulin Ratio Cortisol AM Sample Urine Color Urine Appearance Urine pH Ur Specific [place] Urine Protein Urine Glucose (UA) Urine Ketones Urine Blood Urine Nitrite Urine Bilirubin Urine Urobilinogen Ur Leukocyte Esterase Urine WBC (Auto) Urine RBC (Auto) U Hyaline Cast (Auto) U Epithel Cells (Auto) Urine Bacteria (Auto) Urine Osmolality Nasal Screen MRSA (PCR) Heparin-PF4 Ab Screen 01/26/20 01/26/20 01/26/20 16:57 16:57 18:11 WBC RBC Hgb Hct MCV MCH MCHC RDW Std Deviation RDW Coeff of Nish Plt Count MPV Immature Gran % (Auto) Neut % (Auto) Lymph % (Auto) [place] % (Auto) Eos % (Auto) Baso % (Auto) Immature Gran # (Auto) Neut # (Auto) Lymph # (Auto) [place] # (Auto) Eos # (Auto) Baso # (Auto) Absolute Nucleated RBC Nucleated RBC % (auto) Toxic Granulation Platelet Estimate Peripher Smr Path Cons PT INR APTT PTT Ratio Fibrinogen 350 VBG pH VBG pCO2 VBG pO2 VBG HCO3 VBG O2 Saturation VBG Base Excess Barometric Pressure Sodium Potassium Chloride Carbon Dioxide Anion Gap BUN Creatinine Est Cr Clr Drug Dosing Est GFR ( Amer) Est GFR (Non-Af Amer) BUN/Creatinine Ratio Glucose Lactate Calcium Phosphorus Magnesium Total Bilirubin AST ALT Alkaline Phosphatase Ammonia Lactate Dehydrogenase 404 H Troponin I Total Protein Albumin Globulin Albumin/Globulin Ratio Cortisol AM Sample Urine Color Urine Appearance Urine pH Ur Specific [place] Urine Protein Urine Glucose (UA) Urine Ketones Urine Blood Urine Nitrite Urine Bilirubin Urine Urobilinogen Ur Leukocyte Esterase Urine WBC (Auto) Urine RBC (Auto) U Hyaline Cast (Auto) U Epithel Cells (Auto) Urine Bacteria (Auto) Urine Osmolality Nasal Screen MRSA (PCR) Heparin-PF4 Ab Screen Negative 01/26/20 01/27/20 01/27/20 19:46 06:41 06:41 WBC RBC Hgb Hct MCV MCH MCHC RDW Std Deviation RDW Coeff of Nish Plt Count MPV Immature Gran % (Auto) Neut % (Auto) Lymph % (Auto) [place] % (Auto) Eos % (Auto) Baso % (Auto) Immature Gran # (Auto) Neut # (Auto) Lymph # (Auto) [place] # (Auto) Eos # (Auto) Baso # (Auto) Absolute Nucleated RBC Nucleated RBC % (auto) Toxic Granulation Platelet Estimate Peripher Smr Path Cons PT INR APTT PTT Ratio Fibrinogen VBG pH VBG pCO2 VBG pO2 VBG HCO3 VBG O2 Saturation VBG Base Excess Barometric Pressure Sodium 133 L Potassium 4.6 Chloride 104 Carbon Dioxide 19 L Anion Gap 11.0 BUN 42 H Creatinine 0.91 Est Cr Clr Drug Dosing 47.6 Est GFR ( Amer) 76.7 Est GFR (Non-Af Amer) 66.2 BUN/Creatinine Ratio 46.2 H Glucose 107 H Lactate 5.9 H* Calcium 8.4 L Phosphorus 3.0 Magnesium 2.6 H Total Bilirubin 1.4 H AST 107 H ALT 40 Alkaline Phosphatase 48 Ammonia Lactate Dehydrogenase Troponin I 0.513 H* Total Protein 4.3 L Albumin 2.4 L Globulin 1.9 L Albumin/Globulin Ratio 1.3 Cortisol AM Sample Urine Color Urine Appearance Urine pH Ur Specific [place] Urine Protein Urine Glucose (UA) Urine Ketones Urine Blood Urine Nitrite Urine Bilirubin Urine Urobilinogen Ur Leukocyte Esterase Urine WBC (Auto) Urine RBC (Auto) U Hyaline Cast (Auto) U Epithel Cells (Auto) Urine Bacteria (Auto) Urine Osmolality Nasal Screen MRSA (PCR) Heparin-PF4 Ab Screen 01/27/20 01/27/20 01/27/20 08:05 08:05 08:05 WBC 7.27 RBC 3.85 L Hgb 13.5 Hct 36.8 L MCV 95.6 MCH 35.1 H MCHC 36.7 H RDW Std Deviation 53.4 H RDW Coeff of Nish 17.7 H Plt Count 55 L MPV 12.5 H Immature Gran % (Auto) Neut % (Auto) Lymph % (Auto) [place] % (Auto) Eos % (Auto) Baso % (Auto) Immature Gran # (Auto) Neut # (Auto) Lymph # (Auto) [place] # (Auto) Eos # (Auto) Baso # (Auto) Absolute Nucleated RBC 0.07 H Nucleated RBC % (auto) 1.0 Toxic Granulation Platelet Estimate Peripher Smr Path Cons PT 17.8 H INR 1.7 H APTT PTT Ratio Fibrinogen 334 VBG pH VBG pCO2 VBG pO2 VBG HCO3 VBG O2 Saturation VBG Base Excess Barometric Pressure Sodium Potassium Chloride Carbon Dioxide Anion Gap BUN Creatinine Est Cr Clr Drug Dosing Est GFR ( Amer) Est GFR (Non-Af Amer) BUN/Creatinine Ratio Glucose Lactate Calcium Phosphorus Magnesium Total Bilirubin AST ALT Alkaline Phosphatase Ammonia Lactate Dehydrogenase Troponin I Total Protein Albumin Globulin Albumin/Globulin Ratio Cortisol AM Sample > 150.00 H Urine Color Urine Appearance Urine pH Ur Specific [place] Urine Protein Urine Glucose (UA) Urine Ketones Urine Blood Urine Nitrite Urine Bilirubin Urine Urobilinogen Ur Leukocyte Esterase Urine WBC (Auto) Urine RBC (Auto) U Hyaline Cast (Auto) U Epithel Cells (Auto) Urine Bacteria (Auto) Urine Osmolality Nasal Screen MRSA (PCR) Heparin-PF4 Ab Screen 01/27/20 01/27/20 01/27/20 08:05 09:44 09:44 WBC RBC Hgb Hct MCV MCH MCHC RDW Std Deviation RDW Coeff of Nish Plt Count MPV Immature Gran % (Auto) Neut % (Auto) Lymph % (Auto) [place] % (Auto) Eos % (Auto) Baso % (Auto) Immature Gran # (Auto) Neut # (Auto) Lymph # (Auto) [place] # (Auto) Eos # (Auto) Baso # (Auto) Absolute Nucleated RBC Nucleated RBC % (auto) Toxic Granulation Platelet Estimate Peripher Smr Path Cons PT INR APTT PTT Ratio Fibrinogen VBG pH VBG pCO2 VBG pO2 VBG HCO3 VBG O2 Saturation VBG Base Excess Barometric Pressure Sodium Potassium Chloride Carbon Dioxide Anion Gap BUN Creatinine Est Cr Clr Drug Dosing Est GFR ( Amer) Est GFR (Non-Af Amer) BUN/Creatinine Ratio Glucose Lactate Calcium Phosphorus Magnesium Total Bilirubin AST ALT Alkaline Phosphatase Ammonia 30.6 Lactate Dehydrogenase Troponin I Total Protein Albumin Globulin Albumin/Globulin Ratio Cortisol AM Sample Urine Color Dark Yellow Urine Appearance Clear Urine pH 6.0 Ur Specific [place] 1.032 H Urine Protein Negative Urine Glucose (UA) Negative Urine Ketones Trace H Urine Blood Negative Urine Nitrite Negative Urine Bilirubin Negative Urine Urobilinogen Negative Ur Leukocyte Esterase Trace H Urine WBC (Auto) 1-5 Urine RBC (Auto) 0-4 U Hyaline Cast (Auto) 5-10 H U Epithel Cells (Auto) 20-30 H Urine Bacteria (Auto) Negative Urine Osmolality 843 H Nasal Screen MRSA (PCR) Heparin-PF4 Ab Screen 01/27/20 Unknown WBC RBC Hgb Hct MCV MCH MCHC RDW Std Deviation RDW Coeff of Nish Plt Count MPV Immature Gran % (Auto) Neut % (Auto) Lymph % (Auto) [place] % (Auto) Eos % (Auto) Baso % (Auto) Immature Gran # (Auto) Neut # (Auto) Lymph # (Auto) [place] # (Auto) Eos # (Auto) Baso # (Auto) Absolute Nucleated RBC Nucleated RBC % (auto) Toxic Granulation Platelet Estimate Peripher Smr Path Cons PT INR APTT PTT Ratio Fibrinogen VBG pH VBG pCO2 VBG pO2 VBG HCO3 VBG O2 Saturation VBG Base Excess Barometric Pressure Sodium Potassium Chloride Carbon Dioxide Anion Gap BUN Creatinine Est Cr Clr Drug Dosing Est GFR ( Amer) Est GFR (Non-Af Amer) BUN/Creatinine Ratio Glucose Lactate Calcium Phosphorus Magnesium Total Bilirubin AST ALT Alkaline Phosphatase Ammonia Lactate Dehydrogenase Troponin I Total Protein Albumin Globulin Albumin/Globulin Ratio Cortisol AM Sample Urine Color Urine Appearance Urine pH Ur Specific [place] Urine Protein Urine Glucose (UA) Urine Ketones Urine Blood Urine Nitrite Urine Bilirubin Urine Urobilinogen Ur Leukocyte Esterase Urine WBC (Auto) Urine RBC (Auto) U Hyaline Cast (Auto) U Epithel Cells (Auto) Urine Bacteria (Auto) Urine Osmolality Nasal Screen MRSA (PCR) Negative Heparin-PF4 Ab Screen Diagnostic Findings Telemetry personally reviewed: Atrial fibrillation with rapid ventricular response at approximately 6:03 a.m. this morning. ECG personally reviewed as noted above in HPI. Chest x-ray 01/27/2020: Bibasilar airspace opacities likely represent atelectasis as per Radiology. Portal vein ultrasound 01/26/2020: Hepatic and portal venous structures are within normal limits per Radiology. Medications Administered Current Inpatient Medications Acetaminophen (Tylenol) 650 mg PO Q4H PRN PRN Reason: pain/fever Stop: 02/23/20 16:52 Last Admin: 01/25/20 09:41 Dose: 650 mg Documented by: Al Hydrox/Mg Hydrox/Simethicone (Maalox Max) 15 ml PO Q6H PRN PRN Reason: Heartburn Stop: 02/24/20 20:10 Last Admin: 01/25/20 20:24 Dose: 15 ml Documented by: Ascorbic Acid (Vitamin C) 1,000 mg PO HS PHAM Stop: 02/23/20 20:59 Last Admin: 01/26/20 20:17 Dose: Not Given Documented by: Atenolol (Tenormin) 50 mg PO HS PHAM Stop: 02/23/20 20:59 Last Admin: 01/26/20 20:18 Dose: 50 mg Documented by: Atropine Sulfate (Atropine Sulfate) 0.5 mg IV Q1M PRN PRN Reason: PACU Use-HR<40 &/or Bradycardi Stop: 01/27/20 19:02 Lactulose 200 gm/ Sterile Water 700 ml/ BARCODE IDENTIFIER 1 ea 0 gm MS Q8H PHAM Stop: 02/25/20 21:59 Last Admin: 01/27/20 05:53 Dose: 200 gm Documented by: Dicyclomine HCl (Bentyl) 10 mg PO DAILY PRN PRN Reason: Pain Stop: 02/23/20 16:52 Last Admin: 01/25/20 18:15 Dose: 10 mg Documented by: Ephedrine Sulfate (Ephedrine Sulfate) 5 mg IV Q5M PRN PRN Reason: PACU Use Only-SBP<90 mmHg Stop: 01/27/20 19:02 Famotidine (Pepcid) 10 mg PO BID PRN PRN Reason: Dyspepsia Stop: 02/25/20 20:59 Fentanyl Citrate (Fentanyl Citrate) 25 mcg IV Q5M PRN PRN Reason: PACU Use Only-Pain Stop: 01/27/20 19:06 Hydromorphone HCl (Dilaudid) 0.5 mg IV Q3H PRN PRN Reason: Moderate Pain Stop: 02/07/20 16:02 Last Admin: 01/26/20 04:42 Dose: 0.5 mg Documented by: Hydromorphone HCl (Dilaudid) 1 mg IV Q3H PRN PRN Reason: Severe Pain Stop: 02/07/20 16:07 Sodium Chloride (Nss 1000ml) 1,000 mls @ 80 mls/hr IV .[id number] [facility] Stop: 02/25/20 17:44 Last Admin: 01/27/20 10:02 Dose: 80 mls/hr Documented by: Piperacillin Sod/Tazobactam (Sod 3.375 gm/ Dextrose) 115 mls @ 28.75 mls/hr IV Q8H [facility]; Protocol Stop: 02/06/20 15:59 Pantoprazole Sodium 40 mg/ (Dextrose) 100 mls @ 20 mls/hr IV Q5H PHAM Stop: 02/26/20 11:02 Octreotide Acetate 500 mcg/ (Sodium Chloride) 105 mls @ 10 mls/hr IV .[id number] [facility] Stop: 02/26/20 10:49 Indomethacin (Indocin) 100 mg MS TODAY@1000 [facility] Stop: 01/27/20 18:00 Labetalol HCl (Normodyne) 5 mg IV Q5M PRN PRN Reason: PACU Use-SBP>160 or DBP>100 Stop: 01/27/20 19:06 Lactulose (Chronulac) 20 gm PO BID [facility] Stop: 02/25/20 20:59 Last Admin: 01/26/20 20:18 Dose: Not Given Documented by: Metoclopramide HCl (Reglan) 10 mg IV Q6H PRN PRN Reason: Nausea and Vomiting Stop: 02/23/20 16:52 Last Admin: 01/26/20 00:22 Dose: 10 mg Documented by: Miscellaneous Information (Consult) 1 ea N/A UD PRN PRN Reason: Consult Stop: 02/26/20 09:23 Ondansetron HCl (Zofran) 4 mg IV Q6H PRN PRN Reason: Nausea Stop: 02/23/20 16:52 Last Admin: 01/26/20 04:35 Dose: 4 mg Documented by: Ondansetron HCl (Zofran) 4 mg IV ONCE PRN PRN Reason: PACU Use Only-Nausea/Vomiting Stop: 01/27/20 19:06 Phenylephrine HCl (Darren-Synephrine 500mcg/5ml) 100 mcg IV Q5M PRN PRN Reason: PACU Use Only-SBP<90 or HR>70 Stop: 01/27/20 19:06 Vitamin B Complex (Vitamin B Complex) 1 tab PO DAILY [facility] Stop: 02/24/20 08:59 Last Admin: 01/27/20 10:02 Dose: Not Given Documented by: Zolpidem Tartrate (Ambien) 5 mg PO HS PRN PRN Reason: Sleep Stop: 02/23/20 16:52 Last Admin: 01/24/20 19:35 Dose: 5 mg Documented by: PG Care Time/CCT Total # of Minutes Spent Total Time Spent with Patient: Total time spent is greater than 50% in coordination of care (as documented) at patient's floor/unit and/or counseling patient: Coding Level of Care Code 62339 Inpt Consult Level 4 Diagnoses Atrial fibrillation I48.91 Elevated troponin R79.89
[2020-01-27] MEDS ORDERED: ePHEDrine sulfate 50 MG/ML SYR ONE (12:42)
--- NOTE | 2020-01-27 12:46 | Operative Report ---
Post Operative Report Pre & Post Diagnosis Operation Date: 01/27/20 10:00 Pre-Op Diagnosis: Upper gastrointestinal bleeding, Stent exchange. Post-Op Diagnosis: Upper gastrointestinal bleeding, Stent exchange. Operation Date: 01/28/20 07:00 <No data on this case meets the specified criteria> I identified the patient and participated in the time-out.: Yes Procedure Operation Date: 01/27/20 10:00 Actual Procedures p Endoscopic Retrograde Cholangiopancreatography, Esophagogastroduodenoscopy, Stent exchange. - Julito Haro MD Operation Date: 01/28/20 07:00 <No data on this case meets the specified criteria> Surgeon Julito Haro MD Surveillance Sensor Officer None Estimated Blood Loss 0 Findings See Below (Biliary stent obstructed, pus noted, Biliary stricture seen, two CBD stents placed) Specimens None Description of Procedure EGD/ERCP I attest to the content of the Intraoperative Record and any orders documented therein. Any exceptions are noted below.
--- NOTE | 2020-01-27 12:52 | Fluoroscopy Report ---
[place] ERCP biliary ductal CLINICAL HISTORY: ERCP. COMPARISON STUDY: Abdominal ultrasound 01/26/2020. FLUOROSCOPY TIME: 5 minutes and 30 seconds. FINDINGS: 19 fluoroscopic spot images of the right upper quadrant were submitted. Initial images demo nstrate a plastic common bile duct stent in place and a nasogastric tube. The endoscope is seen at th e second portion of the duodenum. The ampulla is cannulated. The common bile duct stent is removed. A balloon sweep was performed. Diffuse narrowing of the proximal to mid common bile duct and hepatic d uct with an abrupt cut off at the bifurcation of the hepatic ducts. There is intraparenchymal bile du ct dilatation. This is followed by placement of 2 common bile duct stents which extend into the right and left extrahepatic ducts. IMPRESSION: Fluoroscopy provided for ERCP. The with replacement of common bile duct/hepatic duct sten ts. ACT 112: Negative or not required by law. Electronically signed by: Ibrahima Bean M.D. 01/27/2020 12:50 PM
--- NOTE | 2020-01-27 12:56 | GI REPORT ---
Patient Name: Evelin Suarez Procedure Date: 01/27/2020 10:55 AM Date of : 1955 Admit Type: Inpatient Age: 64 Gender: Female Attending MD: Julito Haro MD Procedure: Upper GI endoscopy Providers: Julito Haro MD Referring MD: Honorio Ferrera Md, Lizeth Rowe DO Indications: Hematemesis Medicines: General Anesthesia Complications: No immediate complications. Estimated Blood Loss: Estimated blood loss: none. Procedure: Pre-Anesthesia Assessment: - Prior to the procedure, a History and Physical was performed, and patient medications, allergies and sensitivities were reviewed. The patient's tolerance of previous anesthesia was reviewed. - The risks and benefits of the procedure and the sedation options and risks were discussed with the patient. All questions were answered and informed consent was obtained. - Patient identification and proposed procedure were verified prior to the procedure by the physician and the nurse. The procedure was verified in the procedure room. - Pre-procedure physical examination revealed no contraindications to sedation. After obtaining informed consent, the endoscope was passed under direct vision. Throughout the procedure, the patient's blood pressure, pulse, and oxygen saturations were monitored continuously. The Endoscope was introduced through the mouth, and advanced to the second part of duodenum. The upper GI endoscopy was accomplished without difficulty. The patient tolerated the procedure well. Findings: LA Grade D (one or more mucosal breaks involving at least 75% of esophageal circumference) esophagitis with no bleeding was found in the lower third of the esophagus. NGT removed. A medium amount of food (residue) was found in the stomach precluding adequate visualization. Moderate inflammation with mucosal hemorrhage characterized by erosions, erythema and friability was found in the gastric body. A moderate extrinsic deformity was found in the duodenal bulb. The second portion of the duodenum was normal. A previously placed plastic biliary stent was seen at the major papilla. Impression: - LA Grade D reflux esophagitis. - Gastritis with mucosal oozing likely due to thrombocytopenia. - Duodenal bulb deformity due to external compression causing an element of delayed gastric emptying. - Plastic biliary stent in the duodenum. Recommendation: - Perform an ERCP today. - Keep NGT to low intermittent suction. - Continue IV PPI and Octreotide drips for 24 hrs. Julito Haro MD 01/27/2020 12:55:59 PM This report has been signed electronically. Note Initiated On: 01/27/2020 10:55 AM Number of Addenda: 0 I attest to the content of the Intraoperative Record and orders documented therein, exceptions below {[id number]}
--- NOTE | 2020-01-27 13:34 | GI REPORT ---
Patient Name: Evelin Suarez Procedure Date: 01/27/2020 10:54 AM Date of : 1955 Admit Type: Inpatient Age: 64 Gender: Female Attending MD: Julito Haro MD Procedure: ERCP Providers: Julito Haro MD Referring MD: Honorio Ferrera Md, Lizeth Rowe DO Indications: Suspected ascending cholangitis, Elevated bilirubin, Stent change Medicines: General Anesthesia Complications: No immediate complications. Estimated Blood Loss: Estimated blood loss: none. Procedure: Pre-Anesthesia Assessment: - Prior to the procedure, a History and Physical was performed, and patient medications, allergies and sensitivities were reviewed. The patient's tolerance of previous anesthesia was reviewed. - The risks and benefits of the procedure and the sedation options and risks were discussed with the patient. All questions were answered and informed consent was obtained. - Patient identification and proposed procedure were verified prior to the procedure by the physician and the nurse. The procedure was verified in the procedure room. - Pre-procedure physical examination revealed no contraindications to sedation. After obtaining informed consent, the scope was passed under direct vision. Throughout the procedure, the patient's blood pressure, pulse, and oxygen saturations were monitored continuously. The SCOPE was introduced through the mouth, and advanced to the duodenum and used to inject contrast into the bile duct. The ERCP was accomplished without difficulty. The patient tolerated the procedure well. Findings: A biliary stent was visible on the data center solutions architect film. The esophagus was successfully intubated under direct vision. The scope was advanced to a normal major papilla in the descending duodenum without detailed examination of the pharynx, larynx and associated structures, and upper GI tract. A biliary sphincterotomy had been performed. The sphincterotomy appeared open. One plastic biliary stent originating in the common bile duct was emerging from the major papilla. The stent was visibly occluded. One stent was removed from the common bile duct using a snare. A 0.035 inch angled standard wire was passed into the biliary tree. The Fusion OMNI sphincterotome was passed over the guidewire and the bile duct was then deeply cannulated. Contrast was injected. I personally interpreted the bile duct images. Ductal flow of contrast was adequate. Image quality was adequate. Contrast extended to the main bile duct. There was no opacification of the left intrahepatic branches. There was a stenosis extending from the middle portion of the common bile duct up to the common hepatic duct and right main hepatic ducts, consistent with (Bismuth IV), there was significant dilation of the right posterior ducts due to the stenosis. The lower part of the CBD was mildly dilated. There was opacification of the gallbladder with low cystic duct insertion. The biliary tree was swept with an 11.5 mm balloon starting at the right main hepatic duct. Pus was swept from the duct. I was able to successfully cannulate the right posterior hepatic duct after negotiating an angled 0.025 guidewire into the stricture. This was successfully dilated with a 4 mm balloon dilator. One 7 Fr by 12 cm transpapillary plastic biliary stent with a single external flap and a single internal flap was placed into the right posterior hepatic duct. Bile flowed through the stent. The stent was in good position. One 7 Fr by 13 cm transpapillary plastic biliary stent with a single external flap and a single internal flap was placed into the right anterior hepatic duct. Bile flowed through the stent. The stent was in good position. PD was not cannulated nor injected with contrast. Impression: - One visibly occluded stent was from the common bile duct. - The biliary tree was swept and pus was found consistent with acute cholangitis. 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 - There was severe right posterior hepatic duct stricture with marked upstream ductal dilation. This was dilated with balloon. - One 12 cm plastic biliary stent was placed into the right posterior hepatic duct. - One 13 cm plastic biliary stent was placed into the right anterior hepatic duct. Recommendation: - [facility]. - Continue IV ABx. - Monitor LFTs. - Correct coagulopathy. - Repeat ERCP in the future for stent exchange based on the patient's clinical status and goals of care, would consider uncovered metal stent placement for palliation. Julito Haro MD 01/27/2020 1:33:45 PM This report has been signed electronically. Note Initiated On: 01/27/2020 10:54 AM Number of Addenda: 0 I attest to the content of the Intraoperative Record and orders documented therein, exceptions below {[id number]}
[2020-01-27] MEDS: PANTOprazole 40 MG in DEXTROSE 5% 100 ML IV SCH ×4 (13:55→23:36)
--- NOTE | 2020-01-27 14:03 | XRay Report ---
SINGLE VIEW CHEST CLINICAL HISTORY: Enteric tube placement. Hypoxia. FINDINGS: An AP, portable, semierect chest radiograph is compared to study performed earlier the same day 01/26/2018 and correlated with PET CT dated 11/24/[address] dated 01/24/2020. Th e examination is degraded by portable technique and patient rotation. An enteric tube is in place. Th e tip projects below the diaphragm over the stomach. The cardiomediastinal silhouette is unremarkable . There are bibasilar dependent airspace opacities. No large pleural effusion or pneumothorax is seen . The skeletal structures are osteopenic. The bony thorax is grossly intact. The common bile duct vijay nt is noted in the right upper quadrant. IMPRESSION: 1. An enteric tube has been placed as above. 2. Bibasilar airspace opacities are unchanged and likely represent atelectasis. Clinical correlation will be required. ACT 112: Negative or not required by law. Electronically signed by: Meño Howe M.D. 01/27/2020 2:02 PM
--- NOTE | 2020-01-27 14:25 | Anesthesiology Progress Note ---
Date of Service January 27, 2020 Anesthesia Post Procedure Vital Signs Vital Signs: Temp Pulse Pulse Pulse Resp BP BP 01/27/20 13:50 75 22 01/27/20 13:40 78 25 H 01/27/20 13:30 78 25 H 01/27/20 13:23 35.9 C L 75 24 01/27/20 12:57 123 H 01/27/20 11:11 36.0 C L 121 H 24 01/27/20 10:20 114 H 20 85/63 L 01/27/20 07:11 78 18 01/27/20 06:49 127 H 137/94 01/27/20 00:12 36.3 C L 97 H 93 H 20 01/26/20 20:29 87 01/26/20 19:54 97 H 24 152/85 H 01/26/20 19:20 81 01/26/20 15:18 36.3 C L 96 H 18 139/86 BP Pulse Ox 01/27/20 13:50 135/60 95 01/27/20 13:40 127/74 95 01/27/20 13:30 143/87 H 95 01/27/20 13:23 149/87 H 100 01/27/20 12:57 01/27/20 11:11 100/62 93 01/27/20 10:20 92 01/27/20 07:11 94/55 L 100 01/27/20 06:49 01/27/20 00:12 150/83 H 93 01/26/20 20:29 01/26/20 19:54 97 01/26/20 19:20 01/26/20 15:18 98 Pain Intensity Lower Back: Pain Intensity: 6 Transfer of Care Handoff Completed per policy Notes Mental Status: alert / awake / arousable Patient Amnestic to Procedure: Yes Nausea / Vomiting: adequately controlled Pain: adequately controlled Airway Patency, RR, SpO2: stable & adequate BP & HR: stable & adequate Hydration State: stable & adequate Anesthetic Complications: no major complications apparent Notes: Patient at baseline responsiveness as seen prior to OR. She arouses to verbal stimuli but is unable to state person, place or time (consistent with how she was prior to surgery/anesthesia). Patient did have A fib prior to the OR but converted mid procedure and ECG confirmed afterwards it was NSR. BP stable without pressor support. RR low 20's and able to wean oxygen to 4L FM with SpO2 in mid 90's. She was extubated in the OR and watched for 20 minutes and did not demonstrate any s/s consistent with need for reintubation at this time. She also continued to maintain adequate saturations postoperatively so felt it was ok for her to be transferred to ICU care now under stable but guarded condition. Briefly spoke with ICU physician during procedure to update him on this patient's condition (A fib to NSR conversion).
--- NOTE | 2020-01-27 15:09 | Ultrasound Report ---
US abdomen ltd ascites CLINICAL HISTORY: ascites COMPARISON STUDY: Abdominal ultrasound 01/26/2020. FINDINGS: There is a small amount of ascites seen scattered throughout the abdomen. There is a focal pocket of fluid within the right upper quadrant which appeared to be accessible with ultrasound-guide d aspiration. However, the procedure was unable to perform due to extensive patient motion. IMPRESSION: Small amount of ascites seen throughout the abdomen. A paracentesis was unable to be per formed due to the patient motion. ACT 112: Negative or not required by law. Electronically signed by: Ibrahima Bean M.D. 01/27/2020 3:07 PM
--- NOTE | 2020-01-27 15:31 | Hospitalist Progress Note ---
Date of Service January 27, 2020 Assessment & Plan (1) Cholangitis: On 01/25, she gradually became more lethargic and was AAOx1 by the evening. The morning of 01/26, she was obtunded. - Discussed case with oncology and we ran a differential with concern for acute liver failure possibly due to chemoradiation vs. her cancer. I considered sepsis, but thought to be somewhat less likely to due lack of fever, leukocytosis, and no focal findings. - Discussed with GI on 01/26 with concern for cholangitis and blocked bile duct stent. Underwent emergent ERCP with stent removal and replacement. - Cultures pending; on Zosyn - Concern for GI bleed with gastritis/esophagitis seen. (2) Atrial fibrillation: Entered afib with RVR the morning of 01/26 in the setting of sepsis. - Returned to sinus rhythm by the late morning of 01/26. - Metoprolol IV PRN for HR > 110 - Cardiology consulted - Appreciate assistance - Echo pending (3) Thrombocytopenia: Platelets were 187 on admission; now down to 55 as of 01/28. - Ddx includes TTP/DIC, both thought to be unlikely given no schistocytes seen on peripheral smear from 01/25. Fibrinogen was stable on 01/25 & 01/26. - HIT ruled out with negative PF4 Ab - Likely due to sepsis from her cholangitis - Trend; given platelets for plts < 30 given recent GI bleeding (4) Intractable nausea and vomiting: Suspect chemotherapy-induced vs. from her cancer. Abdominal u/s on 01/24 showed only small ascites that was likely not amenable to paracentesis. Discussed with Dr. Myles who feels diagnostic paracentesis not needed as reacti on to chemo-radiation is likely explanation. - Discussed with her oncologist, Dr. Myles & her radiation oncologist Dr. Palafox on 01/24. Dr. Myles feels this is likely more related to her chemo-radiation rather than progressive cancer or SBP. - Hold capecitabine & radiation at this time. - Continue ondansetron & metoclopramide -> Patient does not want a lot of these as she feels they cause her constipation. Declined this morning. (5) Acute hyponatremia: Likely due to both hypovolemia and SIADH. Urine osms were ~1000 pointing to some element of SIADH. Cortisol > 150, so adrenal insuffic. ruled out. - Monitor - Once awake again, will restart fluid restriction. (6) Abdominal ascites: Secondary to underlying cancer versus chemoradiation. LFTs stable. Possible hyponatremia due to liver failure, although her overall fluid status does not appear to be hypervolemic. - U/s abdomen on 01/24 showed small ascites; not really amenable to paracentesis. - Paracentesis ordered by 01/26 by GI. Will follow up cell counts. 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 - Hold capecitabine & radiation. (8) Back pain: Suspected due to ascites as above. (9) Severe protein-calorie malnutrition: Consult print line inspector for advice regarding supplementation. (10) GERD (gastroesophageal reflux disease): - H2 kentrell PRN (11) DVT prophylaxis: SCDs - Holding heparin for bleeding, anemia, and thromboyctopenia. Admission and Anticipated Discharge Date Admission Date: January 24, 2020 Subjective Obtunded this morning. Unable to respond verbally. Review of Systems Review of Systems: Unobtainable due to cognitive status and Unobtainable due to reduced consciousness Physical Exam Constitutional: + acute distress and + cachectic; + uncooperative Eyes: EOM intact bilaterally; no conjunctival abnormality ENMT: external ear and nose normal, oropharynx normal Neck: trachea midline, no thyromegaly normal visual inspection Respiratory: + labored breathing; no respiratory distress Auscultation: + crackles Cardiovascular: Rate/Rhythm: + tachycardic and + irregularly irregular Gastrointestinal (Abdomen): Inspection/Auscultation: + abdomen distended and normal bowel sounds Percussion/Palpation: abdomen soft and + ascites; abdomen nontender, no guarding and abdomen not rigid Musculoskeletal: no cyanosis or clubbing, extremities motor strength 5/5 Skin: no rashes, warm and dry Neurologic: moves all extremities and awake Psychiatric: Orientation: + not alert, + not oriented to person and + uncooperative Results & Data Results & Data ([facility]) Vital Signs (Past 12 Hours) Vital Signs Temp Pulse Pulse Pulse Resp BP BP 01/27/20 13:50 75 22 01/27/20 13:40 78 25 H 01/27/20 13:30 78 25 H 01/27/20 13:23 35.9 C L 75 24 01/27/20 12:57 123 H 01/27/20 11:11 36.0 C L 121 H 24 01/27/20 10:20 114 H 20 85/63 L 01/27/20 07:11 78 18 01/27/20 06:49 127 H 137/94 BP Pulse Ox 01/27/20 13:50 135/60 95 01/27/20 13:40 127/74 95 01/27/20 13:30 143/87 H 95 01/27/20 13:23 149/87 H 100 01/27/20 12:57 01/27/20 11:11 100/62 93 01/27/20 10:20 92 01/27/20 07:11 94/55 L 100 01/27/20 06:49 PG Care Time/CCT Total # of Minutes Spent Total Time Spent with Patient: Total time spent is greater than 50% in coordination of care (as documented) at patient's floor/unit and/or counseling patient: Coding Level of Care Code 91852 Subseq Hosp Care Lvl 3 Diagnoses Cholangitis K83.09 Atrial fibrillation I48.91 Thrombocytopenia D69.6 Intractable nausea and vomiting R11.2 Acute hyponatremia E87.1 Abdominal ascites R18.8 Ascites type: other type Cholangiocarcinoma C22.1 Back pain M54.9 Back pain laterality: unspecified Back pain location: back pain in unspecified location Chronicity: acute Severe protein-calorie malnutrition E43 GERD (gastroesophageal reflux disease) K21.9 DVT prophylaxis Z29.9 Comment Critical care time 70 minutes. (1) Abdominal ascites Ascites type: other type Qualified Code(s): R18.8 - Other ascites (2) Back pain Back pain laterality: unspecified Back pain location: back pain in unspecified location Chronicity: acute Qualified Code(s): M54.9 - Dorsalgia, unspecified
[2020-01-27] MEDS ORDERED: METOPROLOL TARTRATE 1 MG/ML VIAL IV PRN (15:32)
[2020-01-27] MEDS: OCTREOTIDE ACETATE 50 MCG in SYRINGE 9.5 ML IV ONE ×2 (15:34→17:07)
--- NOTE | 2020-01-27 16:32 | Billing Data ---
Date of Service January 27, 2020 Coding Level of Care Code Critical Care 1st 30-74 mins Comment I spent 70 minutes providing critical care services for this patient to save her life.
--- NOTE | 2020-01-27 16:40 | XCELERA ---
[id number]
[2020-01-27] MEDS: OCTREOTIDE ACETATE 500 MCG in 0.9 % SODIUM CHLORIDE 100 ML IV SCH (17:06)
[2020-01-27] MEDS: PIPERACILLIN/TAZOBACTAM 3.375 GM in DEXTROSE 5% 100 ML IV SCH ×2 (17:16→23:36)
--- NOTE | 2020-01-27 17:32 | Electrocardiogram Report ---
Test Reason : Blood Pressure : / mmHG Vent. Rate : 123 BPM Atrial Rate : 141 BPM P-R Int : 000 ms QRS Dur : 092 ms QT Int : 298 ms P-R-T Axes : 000 050 013 degrees QTc Int : 426 ms Atrial fibrillation with rapid ventricular response Nonspecific ST and T wave abnormality Abnormal ECG When compared with ECG of 04-Jun-2018 12:24, Atrial fibrillation has replaced Sinus rhythm Confirmed by Alexi Salinas ([id number]) on 01/27/2020 5:32:04 PM Referred By: REFERRED SELF Confirmed By:Alexi Salinas
--- NOTE | 2020-01-27 17:41 | Electrocardiogram Report ---
Test Reason : Blood Pressure : / mmHG Vent. Rate : 072 BPM Atrial Rate : 000 BPM P-R Int : 156 ms QRS Dur : 088 ms QT Int : 428 ms P-R-T Axes : 000 037 062 degrees QTc Int : 469 ms Normal sinus rhythm Low voltage QRS Abnormal ECG When compared with ECG of 27-JAN-2020 06:56, Sinus rhythm has replaced Atrial fibrillation Vent. rate has decreased BY [address] no longer depressed in Inferior leads ST no longer depressed in Lateral leads Confirmed by Alexi Salinas ([id number]) on 01/27/2020 5:40:45 PM Referred By: REFERRED SELF Confirmed By:Alexi Salinas
[2020-01-27] MEDS ORDERED: VANCOMYCIN CONSULT ACTIVE PRN (18:18)
[2020-01-27] MEDS ORDERED: VANCOMYCIN HCL 1,250 MG in SODIUM CHLORIDE 0.9% 250 ML IV ONE (18:45)
--- NOTE | 2020-01-27 19:01 | CT Scan Report ---
CT head/brain wo con CLINICAL HISTORY: Acute change in mental status UNSPECIFIED CANCER HISTORY. COMPARISON STUDY: No previous studies for comparison. TECHNIQUE: Axial CT of the brain is performed from the vertex to the skull base. IV contrast was not administered for this examination. A dose lowering technique was utilized adhering to the principles of ALARA. CT DOSE: 1228.53 mGy.cm FINDINGS: The examination is mildly compromised due to motion artifact. There is no CT evidence of acute cortic al infarction. There is a nonspecific 9 mm hypodensity within the right parietal lobe. While possibly representing an old ischemic insult, other pathologic processes cannot be excluded given the cancer history. If further evaluation is desired, an MRI the brain without and with contrast would be consid ered the test of choice in follow-up. There is no evidence of hemorrhage. There is no evidence of mid line shift. There are minimal white matter hypodensities likely on a small vessel basis. There is no evidence of pathologic ventricular dilatation. There is a small left maxillary sinus air-fluid level. IMPRESSION: 1. Nonspecific 9 mm hypodensity within the right parietal lobe. While this may simply represent an ol d ischemic insult, other pathologic entities cannot be excluded given the patient's cancer history. I f further evaluation is desired, an MRI the brain without and with contrast with considered the test of choice. 2. No evidence of acute hemorrhage 3. Small left maxillary sinus air-fluid level ACT 112: Negative or not required by law. Electronically signed by: Meek Clarke M.D. 01/27/2020 7:00 PM
--- NOTE | 2020-01-27 19:43 | Pharmacy Report ---
Pharmacy Abx Initial Consult - Date of Service January 27, 2020 - Pharmacy Dosing Scope Date of Consult: 01/26 Consultation requested by: Dr. Ferrera Pharmacy is consulted to initiate vancomycin IV/PO dosing therapy, order appropriate labs and adjust drug dose/frequency. - Subjective The patient is a 64 year old F admitted on 01/24/20 16:03. - Objective Height: 5 ft 2 in Weight: 48.9 kg Vital Signs (Past 12hrs): Vital Signs Temp Pulse Pulse Pulse Resp BP BP 01/27/20 13:50 75 22 135/60 01/27/20 13:40 78 25 H 127/74 01/27/20 13:30 78 25 H 143/87 H 01/27/20 13:23 35.9 C L 75 24 149/87 H 01/27/20 12:57 123 H 01/27/20 11:11 36.0 C L 121 H 24 100/62 01/27/20 10:20 114 H 20 85/63 L 01/27/20 09:29 35.9 C L 72 22 88/60 L Pulse Ox 01/27/20 13:50 95 01/27/20 13:40 95 01/27/20 13:30 95 01/27/20 13:23 100 01/27/20 12:57 01/27/20 11:11 93 01/27/20 10:20 92 01/27/20 09:29 96 Lab Results (24hrs): Laboratory Tests (24 Hours) 01/27/20 01/27/20 08:05 06:41 WBC 7.27 Creatinine 0.91 Est Cr Clr Drug Dosing 47.6 Micro Results: 01/26/20 16:57 Aerobic Blood Culture - Pending Blood 01/26/20 17:15 Aerobic Blood Culture - Pending Blood Anaerobic Blood Culture - Pending - Risk Factors for Resistance * Immunocompromised (chemotherapy) - Assessment & Plan Assessment 64 year old female on zosyn for possible intra-abdominal infection. Vancomycin now added due to gm positive sp. in blood cultures. Patient with cholangiocarcinoma, severe malnutrition, intractable N/V, ascites. Plan Vancomycin IV * 1250 mg x 1 ordered as loading dose (~25 mg/kg) * Patient not candidate for vancomycin nomogram dosing due to low body weight, therefore will start maintenance dose of vancomycin 750 mg (~15 mg/kg) iv q 16 hrs to achieve an estimated trough ~15-20 mcg/ml (goal for bacteremia) * If continued >48 hrs, plan to order trough * Estimated kinetics: t1/2~15.7 hrs, ke~0.044 hr-1, CrCl ~48 ml/min Piperacillin/tazobactam * 3.375 gm iv q 8 hrs - appropriate for CrCl >30 ml/min / continue same dosing Pharmacy will continue to follow and will adjust dose/frequency as necessary. Thank you.
[2020-01-27] MEDS: LACTULOSE SYRUP 20 GM/30 ML UDC PO SCH (20:20)
[2020-01-28] MEDS: LACTULOSE 200 GM, WATER, STERILE IRRIG 700 ML, BARCODE IDENTIFIER 1 EA PR SCH ×2 (01:23→10:29)
[2020-01-28] MEDS: SODIUM CHLORIDE 0.9% 1000ML 1,000 ML IV SCH ×2 (01:34→13:55)
[2020-01-28] MEDS: OCTREOTIDE ACETATE 500 MCG in 0.9 % SODIUM CHLORIDE 100 ML IV SCH ×2 (01:34→10:02)
[2020-01-28] MEDS: PANTOprazole 40 MG in DEXTROSE 5% 100 ML IV SCH ×2 (04:44→09:14)
[2020-01-28 04:57] LABS: Hematocrit (blood only) 33.8 % (37-47); Hemoglobin 12.3 g/dL (12.0-16.0); Mean Corpuscular Hemoglobin 35.2 pg (25-34); Mean Corpuscular Hgb Conc 36.4 g/dL (32-36); Mean Corpuscular Volume 96.8 fL (80-100); Nucleated RBC # (auto) 0.22 K/uL (0-0); Nucleated RBC % (auto) 1.7 %; Prothrombin Time 20.3 Seconds (9.0-12.0); RDW Coefficient of Variation 18.5 % (11.5-14.5); RDW Standard Deviation 57.1 fL (36.4-46.3); Red Blood Count 3.49 M/uL (4.2-5.4); White Blood Count 12.82 K/uL (4.8-10.8)
[2020-01-28 04:58] LABS: Mean Platelet Volume 11.9 fL (7.4-10.4); Platelet Count 40 K/uL (130-400)
[2020-01-28 05:08] LABS: Albumin Level 1.8 gm/dl (3.4-5.0); Calcium 7.9 mg/dl (8.5-10.1); Creatinine Clr Calc Pharmacy 31.8 ml/min; Est GFR (African American) 47.2; Est GFR (Non-African American) 40.7; Magnesium 2.4 mg/dl (1.8-2.4); Potassium 4.5 mmol/L (3.5-5.1)
[2020-01-28 05:13] LABS: Albumin Globulin Ratio 0.9 (0.9-2); Bilirubin,Total 1.2 mg/dl (0.2-1); Phosphorus 4.1 mg/dl (2.5-4.9); Total Protein 3.8 gm/dl (6.4-8.2)
[2020-01-28] MEDS: PIPERACILLIN/TAZOBACTAM 3.375 GM in DEXTROSE 5% 100 ML IV SCH ×2 (08:00→16:10)
[2020-01-28] MEDS: LACTULOSE SYRUP 20 GM/30 ML UDC PO SCH ×2 (09:07→21:41)
--- NOTE | 2020-01-28 09:28 | Procedure Note ---
Procedure Note Date of Service January 28, 2020 Supervising Physician Co-Signing Physician Notes Critical Care Medicine Procedure Date: Noted above Procedure: Paracentesis Pre-procedure Diagnosis: Concern for spontaneous bacterial peritonitis Post-procedure Diagnosis: same as above Prior to Procedure: Informed Consent: The risks, benefits, indications, potential complications, and alternatives were explained to the [patient] and informed consent obtained. Attending Staff: Sandra Bacon DO Resident/Physician Soundscriber Mechanic: Not applicable Indication: I discussed this case with GI as well as hospitalist service. The patient shows signs of infection there is concern this could represent spontaneous bacterial peritonitis, the patient has abdominal ascites, this could also be metastatic in origin. I have been requested to perform a paracentesis if amenable. I reviewed the H&P, interviewed the patient: She is largely encephalopathic performed a physical exam and reviewed the labs. H&H is 12.3 and 33.8, coagulation: INR 2, fibrinogen within normal limits, platelet count of 40. The identity of the patient was confirmed and a bedside time out was performed. Description of Procedure: Patient positioned, the [RLQ/LLQ/midline] of the abdomen was prepped and draped in usual sterile fashion. [Static] ultrasound guidance was used and appropriate fluid pocket was identified. [] mL of 1% Lidocaine without epinephrine was used to anesthetize the area. A needle was introduced into the peritoneal space and fluid was removed. Total Fluid Removed: [] ml Color of Fluid: [] Sent for: [Gram Stain, culture, cell count, glucose, protein] Complications: None Estimated blood loss: Negligible Coding
--- NOTE | 2020-01-28 09:49 | Gastroenterology Progress Note ---
Date of Service January 28, 2020 Assessment & Plan (1) Cholangiocarcinoma: (2) Sepsis: Pt is a 64 y/o female w hx of treated HCV, cholangiocarcinoma on chemoradiation, followed for AMS, sepsis. EGD/EUS/ERCP done 01/26 w/o signs of gastritis, esophagitis, duodenal compression of gastric, occluded previous biliary stent, + cholangitis, stents placed on anterior and posterior hepatic ducts. She had been getting antibx support. Blood cx 1/2 growing GPB. VS more stable, but developing ARF now. - Continue Zosyn IV, Vancomycin IV added - Albumin 25% 50g IV now - NGT to LIS, keep NPO - DC PPI and Octreotide gtt; Start Protonix 40mg IV BID - ICU attending to attend beside paracentesis w fluid analysis to r/o SBP - Head CT for AMS -> negative for acute infarct . ? nonspecific 9 mm hypodensity within the right parietal lobe. While this may simply represent an old ischemic insult, other pathologic entities cannot be excluded given the patient's cancer history Admission and Anticipated Discharge Date Admission Date: January 24, 2020 Supervising Physician Co-Signing Physician Notes I performed a history and physical examination of the patient today, including specifically on physical exam - soft abdomen. I have discussed the patient's management with the advanced practitioner. Please refer to the nurse practitioner's note for the documented findings and plan of care. Vital signs stable today. She seems more comfortable however still disoriented. Labs showed improved bilirubin. Increase in INR amd now has BRYCE. Blood Cx is positive. Her encephalopathy seems multifactorial, decompensated liver disease, there is evidence of bacteremia with sepsis, also Xeloda can cause hepatotoxicity with encephalopathy. Give Albumin today. Continue supportive care and broad spectrum ABx. Paracentesis. Subjective Pt confused, moving around in bed but not following commands or verbalizing/answ ering questions Labs reviewed: WBC up 12K, Plt decreased 40, INR 2, Cr up 1.3 Blood cx 1/2 set growing gram positive bacilli LFTs stable Review of Systems Review of Systems: Unobtainable due to reduced consciousness Physical Exam Constitutional: + ill appearing ENMT: external ear and nose normal, oropharynx normal Respiratory: no respiratory distress and does not use accessory muscles Auscultation: + diminished lung sounds Cardiovascular: RRR, no murmur, no edema Gastrointestinal (Abdomen): Inspection/Auscultation: + hypoactive bowel sounds Percussion/Palpation: abdomen soft; abdomen nontender Skin: + jaundice Neurologic: Motor/Sensory: + asterixis Psychiatric: Not verbalizing or following commands, moving around in bed non purposefully. Lymphatic: no lymphedema Results & Data ([facility]) Vital Signs (Past 12 Hours) Vital Signs Temp Pulse Resp BP Pulse Ox 01/28/20 08:02 36.8 C 82 19 132/68 98 01/28/20 08:00 85 01/28/20 04:02 81 22 130/60 98 01/28/20 04:00 36.5 C 01/28/20 03:00 72 19 97 01/28/20 02:07 95 H 20 120/66 97 01/28/20 01:13 97 H 01/28/20 01:00 94 H 28 H 94 01/28/20 00:07 91 H 29 H 155/72 H 94 01/28/20 00:00 101 H 28 H 92 01/27/20 23:22 93 H 25 H 147/63 H 94 01/27/20 23:00 94 H 25 H 94
--- NOTE | 2020-01-28 10:11 | Cardiology Progress Note ---
Date of Service January 28, 2020 Assessment & Plan (1) Atrial fibrillation: (2) Elevated troponin: ASSESSMENT/PLAN: 1. Paroxysmal atrial fibrillation with rapid ventricular response: She has converted to sinus rhythm spontaneously. Her atrial fibrillation is likely due to her overwhelming illness consistent with acute cholangitis. Given her overwhelming illness, she does not likely require long-term anticoagulation for stroke risk reduction and that she is found to have further atrial fibrillation in the future. Currently she is not an anticoagulation candidate given worsening thrombocytopenia. Would resume her home dose of beta-kentrell when she is able to safely swallow. 2. Elevated troponin: Likely due to her underlying acute cholangitis/sepsis. She has positive blood culture. She did not present with acute coronary syndrome. Would not treat as acute coronary syndrome. Repeat troponin is pending. Trend till peaked. 3. Acute cholangitis/sepsis: As per GI and primary service. 4. Disposition: Cardiology will sign off. Please call on-call carburizing furnace operator with any further questions or concerns. Admission and Anticipated Discharge Date Admission Date: January 24, 2020 Subjective She is now in the ICU, room 104. She underwent GI procedures yesterday including EGD and ERCP. She was found to have occluded stent within the common bile duct, as well as pus within the biliary tree, consistent with acute cholangitis. A single severe malignant biliary stricture was also found in the common hepatic duct as well as severe right posterior hepatic duct stricture which underwent dilation. Stents were placed within the right posterior and anterior hepatic ducts. She converted to sinus rhythm yesterday, noting to be in sinus rhythm on an ECG done on 01/27/2020 at 1:52 p.m.. She has maintained sinus rhythm since then. Unfortunately, she is unable to provide any history due to her mental status. She is awake but not responding to verbal stimuli. She is moaning. Review of systems: As above. Physical Exam Physical Exam: Gen.: No acute distress. Awake but not responding. HEENT: Anicteric sclera. Neck: No JVD. Cardiac: Regular. Normal S1-S2. No murmurs, rubs, or gallops. Pulmonary: Clear to auscultation bilaterally without wheezes, rales, or rhonchi. Abdomen: Soft, nondistended, with normo-active bowel sounds. No bruits noted. Extremities: 2+ radial pulses bilaterally. No edema or cyanosis. Results & Data ([facility]) Vital Signs (Past 12 Hours) Vital Signs Temp Pulse Resp BP Pulse Ox 01/28/20 08:02 36.8 C 82 19 132/68 98 01/28/20 08:00 85 01/28/20 04:02 81 22 130/60 98 01/28/20 04:00 36.5 C 01/28/20 03:00 72 19 97 01/28/20 02:07 95 H 20 120/66 97 01/28/20 01:13 97 H 01/28/20 01:00 94 H 28 H 94 01/28/20 00:07 91 H 29 H 155/72 H 94 01/28/20 00:00 101 H 28 H 92 01/27/20 23:22 93 H 25 H 147/63 H 94 01/27/20 23:00 94 H 25 H 94 Laboratory Results Laboratory Results - last 24 hr 01/27/20 01/28/20 01/28/20 09:44 04:15 04:15 WBC 12.82 H RBC 3.49 L Hgb 12.3 Hct 33.8 L MCV 96.8 MCH 35.2 H MCHC 36.4 H RDW Std Deviation 57.1 H RDW Coeff of Nish 18.5 H Plt Count 40 L MPV 11.9 H Absolute Nucleated RBC 0.22 H Nucleated RBC % (auto) 1.7 PT 20.3 H INR 2.0 H Sodium Potassium Chloride Carbon Dioxide Anion Gap BUN Creatinine Est Cr Clr Drug Dosing Est GFR ( Amer) Est GFR (Non-Af Amer) BUN/Creatinine Ratio Glucose Lactate Calcium Phosphorus Magnesium Total Bilirubin AST ALT Alkaline Phosphatase Troponin I Total Protein Albumin Globulin Albumin/Globulin Ratio Urine Color Dark Yellow Urine Appearance Clear Urine pH 6.0 Ur Specific Ladora 1.032 H Urine Protein Negative Urine Glucose (UA) Negative Urine Ketones Trace H Urine Blood Negative Urine Nitrite Negative Urine Bilirubin Negative Urine Urobilinogen Negative Ur Leukocyte Esterase Trace H Urine WBC (Auto) 1-5 Urine RBC (Auto) 0-4 U Hyaline Cast (Auto) 5-10 H U Epithel Cells (Auto) 20-30 H Urine Bacteria (Auto) Negative 01/28/20 01/28/20 01/28/20 04:15 09:43 09:43 WBC RBC Hgb Hct MCV MCH MCHC RDW Std Deviation RDW Coeff of Nish Plt Count MPV Absolute Nucleated RBC Nucleated RBC % (auto) PT INR Sodium 132 L Potassium 4.5 Chloride 110 H Carbon Dioxide 14 L Anion Gap 8.0 BUN 50 H Creatinine 1.36 H D Est Cr Clr Drug Dosing 31.8 Est GFR ( Amer) 47.2 Est GFR (Non-Af Amer) 40.7 BUN/Creatinine Ratio 37.0 H Glucose 100 H Lactate Pending Calcium 7.9 L Phosphorus 4.1 D Magnesium 2.4 Total Bilirubin 1.2 H AST 178 H ALT 88 H Alkaline Phosphatase 47 Troponin I Pending Total Protein 3.8 L Albumin 1.8 L Globulin 2.0 L Albumin/Globulin Ratio 0.9 Urine Color Urine Appearance Urine pH Ur Specific [place] Urine Protein Urine Glucose (UA) Urine Ketones Urine Blood Urine Nitrite Urine Bilirubin Urine Urobilinogen Ur Leukocyte Esterase Urine WBC (Auto) Urine RBC (Auto) U Hyaline Cast (Auto) U Epithel Cells (Auto) Urine Bacteria (Auto) Diagnostic Findings ECG personally reviewed: ECG 01/27/2020 at 1:52 p.m.: Sinus rhythm 72 bpm. ECG 01/28/2020: Sinus rhythm 81 bpm. Telemetry personally reviewed: Converted to sinus rhythm yesterday early afternoon and has remained in sinus rhythm. No ventricular arrhythmia noted. Echo 01/27/2020: Low-normal LV size with hyperdynamic systolic function. EF >70%. No regional wall motion abnormalities. Mild MR. Abdominal ascites. Normal RVSP. Medications Administered Current Inpatient Medications Lactulose 200 gm/ Sterile Water 700 ml/ BARCODE IDENTIFIER 1 ea 0 gm [place] Q8H [facility] Stop: 02/25/20 21:59 Last Admin: 01/28/20 01:23 Dose: 200 gm Documented by: Sodium Chloride (Nss 1000ml) 1,000 mls @ 80 mls/hr IV .[id number] [facility] Stop: 02/25/20 17:44 Last Infusion: 01/28/20 07:27 Dose: 80 mls/hr Documented by: Piperacillin Sod/Tazobactam (Sod 3.375 gm/ Dextrose) 115 mls @ 28.75 mls/hr IV Q8H [facility]; Protocol Stop: 02/06/20 15:59 Last Admin: 01/28/20 08:00 Dose: 28.8 mls/hr Documented by: Vancomycin HCl 750 mg/ Sodium (Chloride) 265 mls @ 125 mls/hr IV Q16H [facility] Stop: 02/11/20 11:59 Albumin Human (Albumin 25%) 50 mls @ 50 mls/hr IV Q1H [facility] Stop: 01/28/20 14:14 Pantoprazole Sodium 40 mg/ (Syringe) 10 mls @ 5 mls/min IV BID [facility] Stop: 02/27/20 20:59 Lactulose (Chronulac) 20 gm PO BID [facility] Stop: 02/26/20 20:59 Last Admin: 01/28/20 09:07 Dose: 20 gm Documented by: Metoclopramide HCl (Reglan) 10 mg IV Q6H PRN PRN Reason: Nausea and Vomiting Stop: 02/23/20 16:52 Last Admin: 01/26/20 00:22 Dose: 10 mg Documented by: Metoprolol Tartrate (Lopressor) 5 mg IV Q1H PRN PRN Reason: HR > 110 Stop: 02/26/20 15:31 Miscellaneous Information (Consult) 1 ea N/A UD PRN PRN Reason: Consult Stop: 02/26/20 09:23 Miscellaneous Information (Consult) 1 ea N/A UD PRN PRN Reason: Consult Stop: 02/26/20 18:17 Ondansetron HCl (Zofran) 4 mg IV Q6H PRN PRN Reason: Nausea Stop: 02/23/20 16:52 Last Admin: 01/26/20 04:35 Dose: 4 mg Documented by: PG Care Time/CCT Total # of Minutes Spent Total Time Spent with Patient: Total time spent is greater than 50% in coordination of care (as documented) at patient's floor/unit and/or counseling patient: Coding Level of Care Code 34064 Subseq Hosp Care Lvl 3 Diagnoses Atrial fibrillation I48.91 Elevated troponin R79.89
[2020-01-28] MEDS: ALBUMIN 25% 50 ML IV SCH ×4 (10:16→13:12)
--- NOTE | 2020-01-28 10:39 | Hospitalist Progress Note ---
Date of Service January 28, 2020 Assessment & Plan (1) Bacteremia: Blood cultures from 01/24 growing anaerobic Gram(+) bacilli. Likely Clostridium or Lactobacillus spc per microbiology lab. - Continue vanc/Zosyn - Consult ID - Repeat blood cultures tomorrow morning (2) Cholangitis: On 01/25, she gradually became more lethargic and was AAOx1 by the evening. The morning of 01/26, she was obtunded. - Discussed case with oncology and we ran a differential with concern for acute liver failure possibly due to chemoradiation vs. her cancer. I considered sepsis, but thought to be somewhat less likely to due lack of fever, leukocytosis, and no focal findings. - Discussed with GI on 01/26 with concern for cholangitis and blocked bile duct stent. Underwent emergent ERCP with stent removal and replacement. - Cultures pending; on vanc/Zosyn - Concern for GI bleed with gastritis/esophagitis seen. -> Now on PPI and octreotide per GI. (3) Atrial fibrillation: Entered afib with RVR the morning of 01/26 in the setting of sepsis. Echo on 01/26 showed EF >70%, no regional wall motions issues. - Returned to sinus rhythm by the late morning of 01/26. - Cardiology consulted - Appreciate assistance. Signed off. - Metoprolol IV PRN for HR > 110 - Given acute and self-limited nature, no anticoagulation, especially in light of the concern for GI bleed and thrombocytopenia. (4) Thrombocytopenia: Platelets were 187 on admission; now down to 55 as of 01/28. - Ddx includes TTP/DIC, both thought to be unlikely given no schistocytes seen on peripheral smear from 01/25. Fibrinogen was stable on 01/25 & 01/26. - HIT ruled out with negative PF4 Ab - Likely due to sepsis from her cholangitis - Trend; given platelets for plts < 30 given recent GI bleeding - Down to 40 on 01/27 (5) Intractable nausea and vomiting: Suspect chemotherapy-induced vs. from her cancer. Abdominal u/s on 01/24 showed only small ascites that was likely not amenable to paracentesis. Discussed with Dr. Myles who feels diagnostic paracentesis not needed as reaction to chemo-radiation is likely explanation. - Discussed with her oncologist, Dr. Myles & her radiation oncologist Dr. Palafox on 01/24. Dr. Myles feels this is likely more related to her chemo-radiation rather than progressive cancer or SBP. - Hold capecitabine & radiation at this time. - Continue ondansetron & metoclopramide -> Patient does not want a lot of these as she feels they cause her constipation. Declined this morning. (6) Acute hyponatremia: Likely due to both hypovolemia and SIADH. Urine osms were ~1000 pointing to some element of SIADH. Cortisol > 150, so adrenal insuffic. ruled out. - Monitor - Once awake again, will restart fluid restriction. (7) Abdominal ascites: Secondary to underlying cancer versus chemoradiation. LFTs stable. Possible hyponatremia due to liver failure, although her overall fluid status does not appear to be hypervolemic. - U/s abdomen on 01/24 showed small ascites; not really amenable to paracentesis. - Paracentesis ordered by 01/26 by GI. Will follow up cell counts. - Unable to do the paracentesis on 01/26 due to patient movement and safety. Still moving today. Discussed with ICU attending who will attempt if we can safely do so. (8) Cholangiocarcinoma: Irresectable intrahepatic cholangiocarcinoma. - Hold capecitabine & radiation. (9) Back pain: Suspected due to ascites as above. (10) Severe protein-calorie malnutrition: Consult brick setter operator for advice regarding supplementation. (11) GERD (gastroesophageal reflux disease): - H2 kentrell PRN (12) DVT prophylaxis: SCDs - Holding heparin for bleeding, anemia, and thromboyctopenia. Admission and Anticipated Discharge Date Admission Date: January 24, 2020 Subjective Obtunded. Responds to painful stimuli. Physical Exam Constitutional: + acute distress and + cachectic; + uncooperative Eyes: EOM intact bilaterally; no conjunctival abnormality ENMT: external ear and nose normal, oropharynx normal Neck: trachea midline, no thyromegaly normal visual inspection Respiratory: normal respiratory effort, lungs clear to auscultation + labored breathing; no respiratory distress Auscultation: + crackles Cardiovascular: RRR, no murmur, no edema Rate/Rhythm: + tachycardic and + irregularly irregular Gastrointestinal (Abdomen): Inspection/Auscultation: + abdomen distended and normal bowel sounds Percussion/Palpation: + abdomen tender, abdomen soft and + ascites; no guarding and abdomen not rigid Musculoskeletal: no cyanosis or clubbing, extremities motor strength 5/5 Skin: no rashes, warm and dry Neurologic: moves all extremities and awake Psychiatric: Orientation: + not alert, + not oriented to person and + uncooperative Results & Data Results & Data ([facility]) Vital Signs (Past 12 Hours) Vital Signs Temp Pulse Resp BP Pulse Ox 01/28/20 08:02 36.8 C 82 19 132/68 98 01/28/20 08:00 85 01/28/20 04:02 81 22 130/60 98 01/28/20 04:00 36.5 C 01/28/20 03:00 72 19 97 01/28/20 02:07 95 H 20 120/66 97 01/28/20 01:13 97 H 01/28/20 01:00 94 H 28 H 94 01/28/20 00:07 91 H 29 H 155/72 H 94 01/28/20 00:00 101 H 28 H 92 01/27/20 23:22 93 H 25 H 147/63 H 94 01/27/20 23:00 94 H 25 H 94 PG Care Time/CCT Total # of Minutes Spent Total Time Spent with Patient: Total time spent is greater than 50% in coordination of care (as documented) at patient's floor/unit and/or counseling patient: Coding Level of Care Code 88112 Subseq Hosp Care Lvl 3 Diagnoses Bacteremia R78.81 Cholangitis K83.09 Atrial fibrillation I48.91 Thrombocytopenia D69.6 Intractable nausea and vomiting R11.2 Acute hyponatremia E87.1 Abdominal ascites R18.8 Ascites type: other type Cholangiocarcinoma C22.1 Back pain M54.9 Back pain laterality: unspecified Back pain location: back pain in unspecified location Chronicity: acute Severe protein-calorie malnutrition E43 GERD (gastroesophageal reflux disease) K21.9 DVT prophylaxis Z29.9 (1) Abdominal ascites Ascites type: other type Qualified Code(s): R18.8 - Other ascites (2) Back pain Back pain laterality: unspecified Back pain location: back pain in unspecified location Chronicity: acute Qualified Code(s): M54.9 - Dorsalgia, unspecified
[2020-01-28] MEDS ORDERED: VANCOMYCIN HCL 750 MG in SODIUM CHLORIDE 0.9% 250 ML IV SCH (12:00)
--- NOTE | 2020-01-28 14:53 | Procedure Note ---
Procedure Note Date of Service January 28, 2020 Critical Care Medicine Procedure Date: Noted above Procedure: Limited abdominal ultrasound Pre-procedure Diagnosis: Concern for spontaneous bacterial peritonitis and need for paracentesis Post-procedure Diagnosis: same as above Findings: There was ascites present in all 4 quadrants however the patient was moving about and there was not a large pocket to safely perform a paracentesis. I have notified the hospitalist of these findings. Impression: Positive for abdominal ascites Coding
--- NOTE | 2020-01-28 16:02 | Nephrology Consultation ---
Date of Consultation January 28, 2020 Assessment & Plan (1) Acute kidney injury: -- Nonoliguric BRYCE likely due to several factors including dehydration, inflammation associated w/ cholangitis and possibly Vancomycin therapy -- Recommend continuing IV hydration -- Will check urine Na, Cr and sediment -- Blood pressure is acceptable. No acute indication for Midodrine or Octreotide at this time -- Monitor serial PRP (2) Encephalopathy: -- Elevated NH3 treated w/ Lactolose. Serum NH3 has normalized. Patient is now having profuse diarrhea. Consider reducing Lactulose dose. Await C. Difficile toxin assay results (3) Cholangitis: -- Biliary stent changed 01/26 -- Blood cx had G+ bacillus in one of two samples. This is likely contaminant. Recommend d/c Vancomycin and provide empiric broad spectrum coverage w/ IV Zosyn (4) Cholangiocarcinoma: -- Unresectable. Recently treated w/ chemotherapy + radiation therapy -- Poor prognosis History of Present Illness Reason for Consultation: BRYCE Attending Physician: Honorio Ferrera MD History of Present Illness Ms. Suarez is a 64 year old white female who is seen at the request of Dr. Ferrera for evaluation of BRYCE. Medical records in the EMR were reviewed today and are summarized as follows: Ms. Suarez has a h/o IVDA (heorin 1970's), treated HCV (Alyssa), biliary stricture requiring recurrent stenting, HTN, atrial f ibrillation, shingles and unresectable cholangiocarcinoma managed w/ Capecitabine and radiation therapy. She has no previous h/o kidney disease. Her baseline Cr has been 0.5 - 0.8. Ms. Suarez presented to [facility] ED 01/23 w/ complaints of abdominal distention and intractable N&V. NH3 was 223 and she was diagnosed w/ acute hepatic failure. GI was consulted, provided lactulose and performed EGD, EUS and ERCP. Ms. Suarez was found to have an occluded biliary stent and evidence of cholangitis. Her biliary stent was changed out. Blood cultures returned positive for G+ bacilli. Sensitivities were not reported. Ms. Suarez was empirically placed on Vancomycin and Zosyn therapy. Ammonia level normalized w/ Lactulose but patient has become minimally responsive. She has developed profuse watery diarrhea (7 liquid BM so far today). C. Difficile toxin assay is pending. Serum creatinine has risen to 1.3. Patient remains nonoliguric. Allergies Allergy/AdvReac Type Severity Reaction Status Date / Time No Known Allergies Allergy Verified 01/24/20 11:07 Home Medications Home Medications Medication Instructions Recorded Confirmed Type ascorbic acid (vitamin C) [Vitamin 1,000 mg PO HS 08/05/18 01/24/20 History C] aspirin 81 mg PO HS 08/05/18 01/24/20 History atenolol 50 mg PO HS 08/05/18 01/24/20 History dicyclomine 10 mg PO DAILY PRN 08/05/18 01/24/20 History vitamin E 400 unit PO HS 08/05/18 01/24/20 History hyoscyamine sulfate 0.125 mg tablet 0.125 mg PO QID PRN 11/30/19 01/24/20 History vitamin B complex 1 tab PO DAILY 11/30/19 01/24/20 History capecitabine 150 mg tablet 150 mg PO BID 12/27/19 01/24/20 History capecitabine 500 mg tablet 1,000 mg PO BID tab 12/27/19 01/24/20 History ondansetron HCl 8 mg tablet 8 mg PO Q8H 01/10/20 01/24/20 History Patient History Medical History Atrial fibrillation Biliary stricture (Inactive) Elevated troponin GERD (gastroesophageal reflux disease) Well controlled. 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 Brother Coronary heart disease stent placement done Sister No problems noted. Social History Preferred Language: Occitan Communication Ability: Effective Student Worker Required: No Beliefs That Will Affect Care: None marital status: Single Current Living Situation: Alone Other Information That Helps Us Care for You: No Feels Safe at Home: Yes Safety Concerns: Feels Safe At This Time Smoking Status: Current every day smoker Tobacco Type: cigarettes ; Cigarettes Per Day: 5 ; Second Hand Exposure: No ; Hx Alcohol Use: No (socially) Hx Substance Use: No caffeine: Yes (2 cups a day) during the past year weight has: decreased > 10 lbs Dental Care, Regularly: Yes Review of Systems Review of Systems: Unobtainable due to reduced consciousness Physical Exam Constitutional: + cachectic, + altered mental status and + frail appearing Eyes: icteric sclera ENMT: Mouth: + dry oral mucous membranes Respiratory: + tachypneic Auscultation: lungs clear to auscultation bilaterally Cardiovascular: Rate/Rhythm: + tachycardic Heart Sounds: no murmur Gastrointestinal (Abdomen): Inspection/Auscultation: + abdomen distended and + hypoactive bowel sounds Skin: + turgor decreased Neurologic: + obtunded (does not follow commands) Results & Data Vital Signs (Past 12 Hours) Vital Signs Temp Pulse Pulse Resp BP BP Pulse Ox 01/28/20 15:12 91 H 01/28/20 12:00 36.3 C L 88 106/46 L 98 01/28/20 08:02 36.8 C 82 19 132/68 98 01/28/20 08:00 85 01/28/20 04:02 81 22 130/60 98 01/28/20 04:00 36.5 C Laboratory Results Laboratory Results - last 24 hr 01/28/20 01/28/20 01/28/20 04:15 04:15 04:15 WBC 12.82 H RBC 3.49 L Hgb 12.3 Hct 33.8 L MCV 96.8 MCH 35.2 H MCHC 36.4 H RDW Std Deviation 57.1 H RDW Coeff of Nish 18.5 H Plt Count 40 L MPV 11.9 H Absolute Nucleated RBC 0.22 H Nucleated RBC % (auto) 1.7 PT 20.3 H INR 2.0 H Sodium 132 L Potassium 4.5 Chloride 110 H Carbon Dioxide 14 L Anion Gap 8.0 BUN 50 H Creatinine 1.36 H D Est Cr Clr Drug Dosing 31.8 Est GFR ( Amer) 47.2 Est GFR (Non-Af Amer) 40.7 BUN/Creatinine Ratio 37.0 H Glucose 100 H Lactate Calcium 7.9 L Phosphorus 4.1 D Magnesium 2.4 Total Bilirubin 1.2 H AST 178 H ALT 88 H Alkaline Phosphatase 47 Troponin I Total Protein 3.8 L Albumin 1.8 L Globulin 2.0 L Albumin/Globulin Ratio 0.9 Urine Color Urine Appearance Urine pH Ur Specific [place] Urine Protein Urine Glucose (UA) Urine Ketones Urine Blood Urine Nitrite Urine Bilirubin Urine Urobilinogen Ur Leukocyte Esterase Ur Random Creatinine Ur Random Sodium Stl C. diff Tox B Gene 01/28/20 01/28/20 01/28/20 09:43 09:43 11:41 WBC RBC Hgb Hct MCV MCH MCHC RDW Std Deviation RDW Coeff of Nish Plt Count MPV Absolute Nucleated RBC Nucleated RBC % (auto) PT INR Sodium Potassium Chloride Carbon Dioxide Anion Gap BUN Creatinine Est Cr Clr Drug Dosing Est GFR ( Amer) Est GFR (Non-Af Amer) BUN/Creatinine Ratio Glucose Lactate 8.6 H* 8.3 H* Calcium Phosphorus Magnesium Total Bilirubin AST ALT Alkaline Phosphatase Troponin I 0.722 H* Total Protein Albumin Globulin Albumin/Globulin Ratio Urine Color Urine Appearance Urine pH Ur Specific [place] Urine Protein Urine Glucose (UA) Urine Ketones Urine Blood Urine Nitrite Urine Bilirubin Urine Urobilinogen Ur Leukocyte Esterase Ur Random Creatinine Ur Random Sodium Stl C. diff Tox B Gene 01/28/20 01/28/20 01/28/20 16:00 16:00 16:00 WBC RBC Hgb Hct MCV MCH MCHC RDW Std Deviation RDW Coeff of Nish Plt Count MPV Absolute Nucleated RBC Nucleated RBC % (auto) PT INR Sodium Potassium Chloride Carbon Dioxide Anion Gap BUN Creatinine Est Cr Clr Drug Dosing Est GFR ( Amer) Est GFR (Non-Af Amer) BUN/Creatinine Ratio Glucose Lactate Calcium Phosphorus Magnesium Total Bilirubin AST ALT Alkaline Phosphatase Troponin I Total Protein Albumin Globulin Albumin/Globulin Ratio Urine Color Pending Urine Appearance Pending Urine pH Pending Ur Specific [place] Pending Urine Protein Pending Urine Glucose (UA) Pending Urine Ketones Pending Urine Blood Pending Urine Nitrite Pending Urine Bilirubin Pending Urine Urobilinogen Pending Ur Leukocyte Esterase Pending Ur Random Creatinine Pending Ur Random Sodium Pending Stl C. diff Tox B Gene 01/28/20 16:00 WBC RBC Hgb Hct MCV MCH MCHC RDW Std Deviation RDW Coeff of Nish Plt Count MPV Absolute Nucleated RBC Nucleated RBC % (auto) PT INR Sodium Potassium Chloride Carbon Dioxide Anion Gap BUN Creatinine Est Cr Clr Drug Dosing Est GFR ( Amer) Est GFR (Non-Af Amer) BUN/Creatinine Ratio Glucose Lactate Calcium Phosphorus Magnesium Total Bilirubin AST ALT Alkaline Phosphatase Troponin I Total Protein Albumin Globulin Albumin/Globulin Ratio Urine Color Urine Appearance Urine pH Ur Specific [place] Urine Protein Urine Glucose (UA) Urine Ketones Urine Blood Urine Nitrite Urine Bilirubin Urine Urobilinogen Ur Leukocyte Esterase Ur Random Creatinine Ur Random Sodium Stl C. diff Tox B Gene Pending PG Care Time/CCT Total # of Minutes Spent Total Time Spent with Patient: Total time spent is greater than 50% in coordination of care (as documented) at patient's floor/unit and/or counseling patient: Coding Level of Care Code 39813 Inpt Consult Level 5 Diagnoses Acute kidney injury N17.9 Encephalopathy G93.40 Cholangitis K83.09 Cholangiocarcinoma C22.1
--- NOTE | 2020-01-28 16:15 | Communication Note ---
Date of Service: January 28, 2020 Consulted Nephrology and spoke with jeronimo Valencia for chart review to give direction on possible start of Midodrine/Octreotide for suspected HRS Called and spoke with Dr. Anam Palafox (Oncology). Discussed concerns about pt heading into liver failure from sepsis and suspected contribution from Xeloda's adverse effect. Per Dr. Palafox no further intervention including steroids use at this time, continue conservative management from Oncology standpoint
[2020-01-28 16:28] LABS: Appearance Urine Cloudy (Clear); Bacteria Urine Automated Negative (Negative); Blood Urine 3+ (Negative); Color Urine Orange; Epithelial Cell Urine Auto >30 /lpf (0-5); Glucose Urine UA Negative (Negative); Ketones Urine Negative (Negative); Leukocyte Esterase Urine 1+ (Negative); Nitrite Urine Negative (Negative); Protein Urine 1+ (Negative); RBC Urine Automated >30 /hpf (0-4); Specific Gravity Urine 1.029 (1.000-1.030); Urobilinogen Urine Negative (Negative)
[2020-01-28 16:37] LABS: Bilirubin Urine Negative (Negative); Ictotest Urine Negative (Negative)
--- NOTE | 2020-01-28 17:39 | Electrocardiogram Report ---
Test Reason : Blood Pressure : / mmHG Vent. Rate : 081 BPM Atrial Rate : 267 BPM P-R Int : 000 ms QRS Dur : 096 ms QT Int : 430 ms P-R-T Axes : 000 028 029 degrees QTc Int : 499 ms Sinus rhythm Prolonged QT Abnormal ECG Confirmed by Alexi Salinas ([id number]) on 01/28/2020 5:38:57 PM Referred By: REFERRED SELF Confirmed By:Alexi Salinas
[2020-01-28 18:45] LABS: Albumin Level 2.8 gm/dl (3.4-5.0); BUN Creatinine Ratio 38.7 (10-20); Calcium 8.4 mg/dl (8.5-10.1); Est GFR (African American) 44.4; Est GFR (Non-African American) 38.3; Potassium 4.1 mmol/L (3.5-5.1)
[2020-01-28 18:47] LABS: Albumin Globulin Ratio 1.7 (0.9-2); Bilirubin,Total 1.5 mg/dl (0.2-1); Globulin 1.6 gm/dl (2.5-4.0); Total Protein 4.4 gm/dl (6.4-8.2)
[2020-01-28 19:10] LABS: Hematocrit (blood only) 27.6 % (37-47); Mean Corpuscular Hemoglobin 35.5 pg (25-34); Mean Corpuscular Hgb Conc 36.2 g/dL (32-36); Mean Corpuscular Volume 97.9 fL (80-100); Mean Platelet Volume 10.5 fL (7.4-10.4); Nucleated RBC # (auto) 0.26 K/uL (0-0); Nucleated RBC % (auto) 2.8 %; Platelet Count 26 K/uL (130-400); RDW Coefficient of Variation 18.7 % (11.5-14.5); Red Blood Count 2.82 M/uL (4.2-5.4)
[2020-01-28 19:11] LABS: ALC (manual) 0.24 K/uL (1.2-3.4); ANC (manual) 7.54 K/uL (1.4-6.5); Basophils # (manual) 0.08 K/uL (0-0.2); Basophils % (manual) 0.9 %; Echinocytes 1+; Lymphocytes # (manual) 0.24 K/uL (1.2-3.4); Lymphocytes % (manual) 2.6 %; Monocytes # (manual) 1.35 K/uL (0.11-0.59); Monocytes % (manual) 14.5 %; Myelocytes # (manual) 0.08 K/uL (0-0); Myelocytes % (manual) 0.9 %; Neutrophils # (manual) 7.54 K/uL (1.4-6.5); Neutrophils % (manual) 81.1 %; Platelet Estimate SIGNIFIC DECREASED (Normal); Toxic Granulation 3+
[2020-01-28] MEDS: PANTOprazole 40 MG in SYRINGE 0 ML IV SCH (21:41)
[2020-01-29] MEDS: PIPERACILLIN/TAZOBACTAM 3.375 GM in DEXTROSE 5% 100 ML IV SCH ×2 (00:35→07:27)
[2020-01-29] MEDS: SODIUM CHLORIDE 0.9% 1000ML 1,000 ML IV SCH ×2 (02:35→16:10)
[2020-01-29 04:49] LABS: Nucleated RBC # (auto) 0.41 K/uL (0-0); Nucleated RBC % (auto) 4.9 %
[2020-01-29 04:57] LABS: INR 1.8 (0.9-1.1); Prothrombin Time 18.2 Seconds (9.0-12.0)
[2020-01-29 05:07] LABS: Albumin Level 2.6 gm/dl (3.4-5.0); BUN Creatinine Ratio 45.2 (10-20); Calcium 8.1 mg/dl (8.5-10.1); Creatinine Clr Calc Pharmacy 35.8 ml/min; Est GFR (African American) 52.8; Est GFR (Non-African American) 45.5; Magnesium 2.5 mg/dl (1.8-2.4)
[2020-01-29 05:19] LABS: Albumin Globulin Ratio 1.4 (0.9-2); Bilirubin,Total 1.3 mg/dl (0.2-1); Globulin 1.8 gm/dl (2.5-4.0); Phosphorus 2.9 mg/dl (2.5-4.9); Potassium 3.6 mmol/L (3.5-5.1); Total Protein 4.4 gm/dl (6.4-8.2)
[2020-01-29 05:29] LABS: Hematocrit (blood only) 25.8 % (37-47); Hemoglobin 9.5 g/dL (12.0-16.0); Mean Corpuscular Hemoglobin 35.8 pg (25-34); Mean Corpuscular Hgb Conc 36.8 g/dL (32-36); Mean Corpuscular Volume 97.4 fL (80-100); Mean Platelet Volume 11.8 fL (7.4-10.4); Platelet Count 52 K/uL (130-400); RDW Coefficient of Variation 18.6 % (11.5-14.5); RDW Standard Deviation 57.6 fL (36.4-46.3); Red Blood Count 2.65 M/uL (4.2-5.4); White Blood Count 8.25 K/uL (4.8-10.8)
--- NOTE | 2020-01-29 05:48 | Pharmacy Report ---
Pharmacy Abx Dose Short Note - Date of Service January 29, 2020 - Assessment & Plan Assessment 64 year old F receiving vancomycin and Zosyn for treatment of bacteremia Day # 3 of antimicrobial therapy. Plan Vancomycin * Random level of 12.2 mcg/mL is subtherapeutic * Start vancomycin 750 mg IV q14 hours (patient specific pharmacokinetics are Ke of 0.07 with half life of 9.9 hours) --> utilized q14 hour dosing since patient already on nephrotoxic regimen with Zosyn + vancomycin plus concern that q12 hour dosing may produce trough closer to 20-21 mcg/mL. * Goal trough level for bacteremia : 15 to 20 mcg/mL * Trough ordered for: 01/23/2020 prior to 3rd dose Pharmacy will continue to follow and will adjust dose/frequency as necessary. Thank you.
[2020-01-29] MEDS ORDERED: VANCOMYCIN HCL 750 MG in SODIUM CHLORIDE 0.9% 250 ML IV SCH (06:00)
[2020-01-29] MEDS: LACTULOSE SYRUP 20 GM/30 ML UDC PO SCH (07:32)
[2020-01-29] MEDS: PANTOprazole 40 MG in SYRINGE 0 ML IV SCH ×2 (07:32→22:38)
--- NOTE | 2020-01-29 09:09 | Gastroenterology Progress Note ---
Date of Service January 29, 2020 Assessment & Plan Admission and Anticipated Discharge Date Admission Date: January 24, 2020 Overall the patient seems to be declining despite her recent biliary stent change. I wonder if the recent elevation of her transaminases is related to shock liver hold on any procedures at the present time. Overall I suspect that her decline is likely related to therapy used to treat her cholangiocarcinoma which included both radiation therapy and Xeloda. Perhaps the patient should be seen by oncology or even consider referral to a tertiary center for expert care Recommendations Continue with broad-spectrum antibiotic coverage Continue with IV hydration Appreciate nephrology input Consider oncology consultation Consider referral to a tertiary center Subjective The patient is unable to give any historical information today due to her altered mental status. She underwent urgent ERCP on for suspected occlusion of a biliary stent and cholangitis. Unfortunately since that time she has continued to worsen. The patient has a history of cholangiocarcinoma which took a prolonged amount of time to diagnose despite being seen at numerous tertiary centers to include [facility], [facility], and [facility]. In November the patient underwent combined radiation and began chemotherapy with Xeloda via . Physical Exam Constitutional: + ill appearing and + cachectic Eyes: + anicteric sclerae Respiratory: + abnormal respiratory effort, no respiratory distress and no labored breathing Auscultation: + crackles Cardiovascular: Systolic murmur heard Gastrointestinal (Abdomen): Inspection/Auscultation: abdomen not distended Percussion/Palpation: abdomen nontender Results & Data ([facility]) Vital Signs (Past 12 Hours) Vital Signs Temp Pulse Pulse Resp BP BP Pulse Ox 01/29/20 08:04 36.5 C 69 22 135/58 L 98 01/29/20 04:01 36.6 C 90 23 136/47 L 96 01/29/20 00:00 87 23 126/57 L 97 01/28/20 23:45 86 23 114/62 97 01/28/20 23:30 90 24 108/62 96 01/28/20 23:20 36.4 C L 89 24 118/98 94 01/28/20 23:16 36.4 C L 85 23 124/61 01/28/20 23:15 36.4 C L 87 26 H 122/48 L 96 01/28/20 23:01 36.6 C 89 22 119/70 95 01/28/20 23:00 36.4 C L 91 H 29 H 118/98 96 01/28/20 22:50 36.4 C L 87 27 H 124/61 97 01/28/20 22:45 36.6 C 81 26 H 119/70 98 01/28/20 22:44 36.6 C 84 24 119/70 98 Laboratory Results Laboratory Results - last 24 hr 01/28/20 01/28/20 01/28/20 09:43 09:43 11:41 WBC RBC Hgb Hct MCV MCH MCHC RDW Std Deviation RDW Coeff of Nish Plt Count MPV Absolute Nucleated RBC Nucleated RBC % (auto) Neutrophils % (Manual) Lymphocytes % (Manual) Monocytes % (Manual) Basophils % (Manual) Myelocytes % (Man) Neutrophils # (Manual) Total Absolute Neuts Lymphocytes # (Manual) Total Abs Lymphocytes Monocytes # (Manual) Basophils # (Manual) Myelocytes # (Manual) Toxic Granulation Platelet Estimate Echinocytes PT INR Sodium Potassium Chloride Carbon Dioxide Anion Gap BUN Creatinine Est Cr Clr Drug Dosing Est GFR ( Amer) Est GFR (Non-Af Amer) BUN/Creatinine Ratio Glucose Lactate 8.6 H* 8.3 H* Calcium Phosphorus Magnesium Total Bilirubin AST ALT Alkaline Phosphatase Troponin I 0.722 H* Total Protein Albumin Globulin Albumin/Globulin Ratio Urine Color Urine Appearance Urine pH Ur Specific [place] Urine Protein Urine Glucose (UA) Urine Ketones Urine Blood Urine Nitrite Urine Bilirubin Urine Urobilinogen Ur Leukocyte Esterase Urine WBC (Auto) Urine RBC (Auto) U Hyaline Cast (Auto) U Epithel Cells (Auto) Urine Bacteria (Auto) Ur Random Creatinine Ur Random Sodium Stl C. diff Tox B Gene Random Vancomycin Blood Type 01/28/20 01/28/20 01/28/20 16:00 16:00 16:00 WBC RBC Hgb Hct MCV MCH MCHC RDW Std Deviation RDW Coeff of Nish Plt Count MPV Absolute Nucleated RBC Nucleated RBC % (auto) Neutrophils % (Manual) Lymphocytes % (Manual) Monocytes % (Manual) Basophils % (Manual) Myelocytes % (Man) Neutrophils # (Manual) Total Absolute Neuts Lymphocytes # (Manual) Total Abs Lymphocytes Monocytes # (Manual) Basophils # (Manual) Myelocytes # (Manual) Toxic Granulation Platelet Estimate Echinocytes PT INR Sodium Potassium Chloride Carbon Dioxide Anion Gap BUN Creatinine Est Cr Clr Drug Dosing Est GFR ( Amer) Est GFR (Non-Af Amer) BUN/Creatinine Ratio Glucose Lactate Calcium Phosphorus Magnesium Total Bilirubin AST ALT Alkaline Phosphatase Troponin I Total Protein Albumin Globulin Albumin/Globulin Ratio Urine Color [place] Urine Appearance Cloudy A Urine pH 5.0 Ur Specific [place] 1.029 Urine Protein 1+ H Urine Glucose (UA) Negative Urine Ketones Negative Urine Blood 3+ H Urine Nitrite Negative Urine Bilirubin Negative Urine Urobilinogen Negative Ur Leukocyte Esterase 1+ H Urine WBC (Auto) 10-30 H Urine RBC (Auto) >30 H U Hyaline Cast (Auto) 5-10 H U Epithel Cells (Auto) >30 H Urine Bacteria (Auto) Negative Ur Random Creatinine 64.8 Ur Random Sodium 9 Stl C. diff Tox B Gene Random Vancomycin Blood Type 01/28/20 01/28/20 01/28/20 16:00 18:16 18:16 WBC 9.30 RBC 2.82 L Hgb 10.0 L Hct 27.6 L MCV 97.9 MCH 35.5 H MCHC 36.2 H RDW Std Deviation 60.0 H RDW Coeff of Nish 18.7 H Plt Count 26 L* MPV 10.5 H Absolute Nucleated RBC 0.26 H Nucleated RBC % (auto) 2.8 Neutrophils % (Manual) 81.1 Lymphocytes % (Manual) 2.6 Monocytes % (Manual) 14.5 Basophils % (Manual) 0.9 Myelocytes % (Man) 0.9 Neutrophils # (Manual) 7.54 H Total Absolute Neuts 7.54 H Lymphocytes # (Manual) 0.24 L Total Abs Lymphocytes 0.24 L Monocytes # (Manual) 1.35 H Basophils # (Manual) 0.08 Myelocytes # (Manual) 0.08 H Toxic Granulation 3+ Platelet Estimate SIGNIFIC DECREASED Echinocytes 1+ PT INR Sodium 136 Potassium 4.1 Chloride 115 H Carbon Dioxide 13 L Anion Gap 8.0 BUN 55 H Creatinine 1.43 H Est Cr Clr Drug Dosing 31.0 Est GFR ( Amer) 44.4 Est GFR (Non-Af Amer) 38.3 BUN/Creatinine Ratio 38.7 H Glucose 98 Lactate Calcium 8.4 L Phosphorus Magnesium Total Bilirubin 1.5 H AST 411 H ALT 198 H Alkaline Phosphatase 42 L Troponin I Total Protein 4.4 L Albumin 2.8 L Globulin 1.6 L Albumin/Globulin Ratio 1.7 Urine Color Urine Appearance Urine pH Ur Specific [place] Urine Protein Urine Glucose (UA) Urine Ketones Urine Blood Urine Nitrite Urine Bilirubin Urine Urobilinogen Ur Leukocyte Esterase Urine WBC (Auto) Urine RBC (Auto) U Hyaline Cast (Auto) U Epithel Cells (Auto) Urine Bacteria (Auto) Ur Random Creatinine Ur Random Sodium Stl C. diff Tox B Gene Negative Cdiff Gene Random Vancomycin Blood Type 01/28/20 01/29/20 01/29/20 21:36 04:33 04:33 WBC RBC Hgb Hct MCV MCH MCHC RDW Std Deviation RDW Coeff of Nish Plt Count MPV Absolute Nucleated RBC Nucleated RBC % (auto) Neutrophils % (Manual) Lymphocytes % (Manual) Monocytes % (Manual) Basophils % (Manual) Myelocytes % (Man) Neutrophils # (Manual) Total Absolute Neuts Lymphocytes # (Manual) Total Abs Lymphocytes Monocytes # (Manual) Basophils # (Manual) Myelocytes # (Manual) Toxic Granulation Platelet Estimate Echinocytes PT INR Sodium 138 Potassium 3.6 Chloride 119 H Carbon Dioxide 17 L Anion Gap 2.0 L BUN 56 H Creatinine 1.24 H Est Cr Clr Drug Dosing 35.8 Est GFR ( Amer) 52.8 Est GFR (Non-Af Amer) 45.5 BUN/Creatinine Ratio 45.2 H Glucose 119 H Lactate Calcium 8.1 L Phosphorus 2.9 D Magnesium 2.5 H Total Bilirubin 1.3 H AST 395 H ALT 234 H Alkaline Phosphatase 48 Troponin I Total Protein 4.4 L Albumin 2.6 L Globulin 1.8 L Albumin/Globulin Ratio 1.4 Urine Color Urine Appearance Urine pH Ur Specific [place] Urine Protein Urine Glucose (UA) Urine Ketones Urine Blood Urine Nitrite Urine Bilirubin Urine Urobilinogen Ur Leukocyte Esterase Urine WBC (Auto) Urine RBC (Auto) U Hyaline Cast (Auto) U Epithel Cells (Auto) Urine Bacteria (Auto) Ur Random Creatinine Ur Random Sodium Stl C. diff Tox B Gene Random Vancomycin 12.2 Blood Type A Negative 01/29/20 01/29/20 04:33 04:33 WBC 8.25 RBC 2.65 L Hgb 9.5 L Hct 25.8 L MCV 97.4 MCH 35.8 H MCHC 36.8 H RDW Std Deviation 57.6 H RDW Coeff of Nish 18.6 H Plt Count 52 L D MPV 11.8 H Absolute Nucleated RBC 0.41 H Nucleated RBC % (auto) 4.9 Neutrophils % (Manual) Lymphocytes % (Manual) Monocytes % (Manual) Basophils % (Manual) Myelocytes % (Man) Neutrophils # (Manual) Total Absolute Neuts Lymphocytes # (Manual) Total Abs Lymphocytes Monocytes # (Manual) Basophils # (Manual) Myelocytes # (Manual) Toxic Granulation Platelet Estimate Echinocytes PT 18.2 H INR 1.8 H Sodium Potassium Chloride Carbon Dioxide Anion Gap BUN Creatinine Est Cr Clr Drug Dosing Est GFR ( Amer) Est GFR (Non-Af Amer) BUN/Creatinine Ratio Glucose Lactate Calcium Phosphorus Magnesium Total Bilirubin AST ALT Alkaline Phosphatase Troponin I Total Protein Albumin Globulin Albumin/Globulin Ratio Urine Color Urine Appearance Urine pH Ur Specific [place] Urine Protein Urine Glucose (UA) Urine Ketones Urine Blood Urine Nitrite Urine Bilirubin Urine Urobilinogen Ur Leukocyte Esterase Urine WBC (Auto) Urine RBC (Auto) U Hyaline Cast (Auto) U Epithel Cells (Auto) Urine Bacteria (Auto) Ur Random Creatinine Ur Random Sodium Stl C. diff Tox B Gene Random Vancomycin Blood Type
--- NOTE | 2020-01-29 09:50 | Hospitalist Progress Note ---
Date of Service January 29, 2020 Assessment & Plan (1) Cholangitis: On 01/25, she gradually became more lethargic and was AAOx1 by the evening. The morning of 01/26, she was obtunded. - Discussed case with oncology and we ran a differential with concern for acute liver failure possibly due to chemoradiation vs. her cancer. I considered sepsis, but thought to be somewhat less likely to due lack of fever or leukocytosis, and no focal findings. - Discussed with GI on 01/26 with concern for cholangitis and blocked bile duct stent. Underwent emergent ERCP with stent removal and replacement. - Cultures pending; on vanc/Zosyn - Concern for GI bleed with gastritis/esophagitis seen. -> Now on PPI and octreotide per GI. - Still with apparent abdominal discomfort. Discussed with Dr. Howe and will get a non-con CT a/p. (2) Bacteremia: Blood cultures from 01/24 growing anaerobic Gram(+) bacilli. Likely Clostridium or Lactobacillus spc per microbiology lab. - Continue vanc/Zosyn - Consulted ID on 01/27 - Pending - Repeated blood cultures on 01/28; no growth so far. - Will get speciation from Micro today potentially. May be able to stop vancomycin if it is a likely contaminent. (3) Atrial fibrillation: Entered afib with RVR the morning of 01/26 in the setting of sepsis. Echo on 01/26 showed EF >70%, no regional wall motions issues. - Returned to sinus rhythm by the late morning of 01/26. - Cardiology consulted - Appreciate assistance. Signed off. - Metoprolol IV PRN for HR > 110 - Given acute and self-limited nature, no anticoagulation, especially in light of the concern for GI bleed and thrombocytopenia. (4) Thrombocytopenia: Platelets were 187 on admission; down as low as 26 on 01/27. - Ddx includes TTP/DIC, both thought to be unlikely given no schistocytes seen on peripheral smear from 01/25. Fibrinogen was stable on 01/25 & 01/26. - HIT ruled out with negative PF4 Ab - Likely due to sepsis from her cholangitis - Trend; given platelets for plts < 30 given recent GI bleeding -> Received 1 unit of platelets on 01/27 - Platelets up to 52 this morning. (5) Intractable nausea and vomiting: Suspect chemotherapy-induced vs. from her cancer. Abdominal u/s on 01/24 showed only small ascites that was likely not amenable to paracentesis. Discussed with Dr. Myles who feels diagnostic paracentesis not needed as reaction to chemo-radiation is likely explanation. - Hold capecitabine & radiation at this time. - Continue ondansetron & metoclopramide -> Holding now as patient is lethargic, but is not vomiting. (6) Acute hyponatremia: Likely due to both hypovolemia and SIADH. Urine osms were ~1000 pointing to some element of SIADH. Cortisol > 150, so adrenal insuffic. ruled out. - Monitor - Once awake again, will restart fluid restriction. (7) Abdominal ascites: Secondary to underlying cancer versus chemoradiation. LFTs stable. Possible hyponatremia due to liver failure, although her overall fluid status does not appear to be hypervolemic. - U/s abdomen on 01/24 showed small ascites; not really amenable to paracentesis. - Unable to do the paracentesis on 01/26 or 01/27 due to too small a fluid pocket for safe tap. (8) Cholangiocarcinoma: Irresectable intrahepatic cholangiocarcinoma. - Hold capecitabine & radiation. (9) Severe protein-calorie malnutrition: Consulted nursing informatics clinical analyst for advice regarding supplementation. (10) GERD (gastroesophageal reflux disease): - H2 kentrell PRN (11) DVT prophylaxis: SCDs - Holding heparin for bleeding, anemia, and thromboyctopenia. Admission and Anticipated Discharge Date Admission Date: January 24, 2020 Subjective Somewhat more responsive today, but unable to answer questions or follow commands. Review of Systems Review of Systems: Unobtainable due to cognitive status and Unobtainable due to reduced consciousness Physical Exam Constitutional: + acute distress and + cachectic; + uncooperative Eyes: EOM intact bilaterally; no conjunctival abnormality ENMT: external ear and nose normal, oropharynx normal Neck: trachea midline, no thyromegaly normal visual inspection Respiratory: normal respiratory effort, lungs clear to auscultation + labored breathing; no respiratory distress Auscultation: + crackles Cardiovascular: RRR, no murmur, no edema Gastrointestinal (Abdomen): Inspection/Auscultation: + abdomen distended and normal bowel sounds Percussion/Palpation: + abdomen tender and abdomen soft; no guarding and abdomen not rigid Musculoskeletal: no cyanosis or clubbing, extremities motor strength 5/5 Skin: no rashes, warm and dry Neurologic: moves all extremities and awake Psychiatric: Orientation: + not alert, + not oriented to person and + uncooperative Results & Data Results & Data ([facility]) Vital Signs (Past 12 Hours) Vital Signs Temp Pulse Pulse Resp BP BP Pulse Ox 01/29/20 08:04 36.5 C 69 22 135/58 L 98 01/29/20 08:00 75 01/29/20 04:01 36.6 C 90 23 136/47 L 96 01/29/20 00:00 87 23 126/57 L 97 01/28/20 23:45 86 23 114/62 97 01/28/20 23:30 90 24 108/62 96 01/28/20 23:20 36.4 C L 89 24 118/98 94 01/28/20 23:16 36.4 C L 85 23 124/61 01/28/20 23:15 36.4 C L 87 26 H 122/48 L 96 01/28/20 23:01 36.6 C 89 22 119/70 95 01/28/20 23:00 36.4 C L 91 H 29 H 118/98 96 01/28/20 22:50 36.4 C L 87 27 H 124/61 97 01/28/20 22:45 36.6 C 81 26 H 119/70 98 01/28/20 22:44 36.6 C 84 24 119/70 98 PG Care Time/CCT Total # of Minutes Spent Total Time Spent with Patient: Total time spent is greater than 50% in coordination of care (as documented) at patient's floor/unit and/or counseling patient: Coding Level of Care Code 47141 Subs Hosp Care Lvl 3 Diagnoses Cholangitis K83.09 Bacteremia R78.81 Atrial fibrillation I48.91 Thrombocytopenia D69.6 Intractable nausea and vomiting R11.2 Acute hyponatremia E87.1 Abdominal ascites R18.8 Ascites type: other type Cholangiocarcinoma C22.1 Severe protein-calorie malnutrition E43 GERD (gastroesophageal reflux disease) K21.9 DVT prophylaxis Z29.9 (1) Abdominal ascites Ascites type: other type Qualified Code(s): R18.8 - Other ascites
[2020-01-29] MEDS: PEPTAMEN 1.5 CAL 1,000 ML BAG NG SCH (11:54)
--- NOTE | 2020-01-29 12:19 | Nephrology Progress Note ---
Date of Service January 29, 2020 Assessment & Plan (1) Acute kidney injury: 64 y o F With recent history of intrahepatic cholangiocarcinoma, received radiation and started on chemotherapy with Xeloda in November. Admitted with BRYCE, encephalopathy and acute liver failure. Initially was hyponatremic as well which currently improved. BRYCE seems to be hemodynamically mediated, renal function staying relatively stable however clinically still seems volume depleted. Blood pressure improved, has been on midodrine and octreotide. --would continue on IV fluid, continue on normal saline --avoid nephrotoxic medications --monitor renal function and electrolytes daily Will follow (2) Acute hyponatremia: (3) Encephalopathy: Admission and Anticipated Discharge Date Admission Date: January 24, 2020 Mike Waters was seen and examined in ICU this morning. She was minimally responsive, did not answer any question but seems to be restless and uncomfortable. Althoug h discussion with the nursing staff revealed that she seems slightly better today compared to yesterday. Blood pressure has been stable. Renal function and electrolyte relatively stable. Sodium normalized. Non-oliguric. Review of Systems Review of Systems: Unobtainable due to cognitive status Physical Exam Constitutional: + acute distress, + ill appearing and + altered mental status Respiratory: normal respiratory effort Auscultation: lungs clear to auscultation bilaterally Cardiovascular: RRR, no murmur, no edema Gastrointestinal (Abdomen): Inspection/Auscultation: normal bowel sounds Percussion/Palpation: abdomen soft; abdomen nontender, no guarding and abdomen not rigid Skin: no rashes, warm and dry Neurologic: Minimally responsive, restless, could not be assessed in detail. Results & Data ([facility]) Vital Signs (Past 12 Hours) Vital Signs Temp Pulse Pulse Resp BP BP Pulse Ox 01/29/20 08:04 36.5 C 69 22 135/58 L 98 01/29/20 08:00 75 01/29/20 04:01 36.6 C 90 23 136/47 L 96 PG Care Time/CCT Total # of Minutes Spent Total Time Spent with Patient: Total time spent is greater than 50% in coordination of care (as documented) at patient's floor/unit and/or counseling patient: Coding Level of Care Code 70179 Subseq Hosp Care Lvl 3 Diagnoses Acute kidney injury N17.9 Acute hyponatremia E87.1 Encephalopathy G93.40
[2020-01-29] MEDS: AMPICILLIN/SULBACTAM SOD 3,000 MG in 0.9 % SODIUM CHLORIDE 100 ML IV SCH ×2 (16:10→22:38)
[2020-01-29 16:51] LABS: Hematocrit (blood only) 28.5 % (37-47); Hemoglobin 10.1 g/dL (12.0-16.0); Mean Corpuscular Hemoglobin 34.8 pg (25-34); Mean Corpuscular Hgb Conc 35.4 g/dL (32-36); Mean Corpuscular Volume 98.3 fL (80-100); Mean Platelet Volume 12.8 fL (7.4-10.4); Nucleated RBC % (auto) 9.3 %; Platelet Count 44 K/uL (130-400); RDW Coefficient of Variation 19.1 % (11.5-14.5); RDW Standard Deviation 59.9 fL (36.4-46.3); White Blood Count 6.48 K/uL (4.8-10.8)
[2020-01-29 16:52] LABS: Albumin Level 2.7 gm/dl (3.4-5.0); BUN Creatinine Ratio 45.1 (10-20); Calcium 8.6 mg/dl (8.5-10.1); Creatinine Clr Calc Pharmacy 37.3 ml/min; Est GFR (African American) 55.5; Est GFR (Non-African American) 47.9; Potassium 3.6 mmol/L (3.5-5.1)
[2020-01-29 16:53] LABS: ALC (manual) 0.06 K/uL (1.2-3.4); ANC (manual) 5.86 K/uL (1.4-6.5); Echinocytes 1+; Lymphocytes # (manual) 0.06 K/uL (1.2-3.4); Lymphocytes % (manual) 0.9 %; Metamyelocytes # (manual) 0.06 K/uL (0-0); Metamyelocytes % (manual) 0.9 %; Monocytes # (manual) 0.51 K/uL (0.11-0.59); Monocytes % (manual) 7.8 %; Neutrophils # (manual) 5.86 K/uL (1.4-6.5); Neutrophils % (manual) 90.4 %; Platelet Estimate SIGNIFIC DECREASED (Normal); Toxic Granulation 1+
[2020-01-29 16:55] LABS: Albumin Globulin Ratio 1.5 (0.9-2); Bilirubin,Total 1.3 mg/dl (0.2-1); Globulin 1.8 gm/dl (2.5-4.0); Total Protein 4.5 gm/dl (6.4-8.2)
[2020-01-30] MEDS: SODIUM CHLORIDE 0.9% 1000ML 1,000 ML IV SCH (02:15)
[2020-01-30] MEDS: MoRPHine SULFATE 2 MG/ML CARP IV PRN ×4 (02:16→19:56)
[2020-01-30] MEDS: AMPICILLIN/SULBACTAM SOD 3,000 MG in 0.9 % SODIUM CHLORIDE 100 ML IV SCH ×4 (04:33→23:00)
[2020-01-30 04:37] LABS: Hematocrit (blood only) 28.8 % (37-47); Hemoglobin 10.2 g/dL (12.0-16.0); Mean Corpuscular Hemoglobin 35.2 pg (25-34); Mean Corpuscular Hgb Conc 35.4 g/dL (32-36); Mean Corpuscular Volume 99.3 fL (80-100); Nucleated RBC # (auto) 0.48 K/uL (0-0); Nucleated RBC % (auto) 9.1 %; RDW Coefficient of Variation 19.2 % (11.5-14.5); RDW Standard Deviation 60.3 fL (36.4-46.3); White Blood Count 5.21 K/uL (4.8-10.8)
[2020-01-30 04:45] LABS: INR 1.5 (0.9-1.1); Prothrombin Time 15.7 Seconds (9.0-12.0)
[2020-01-30 05:06] LABS: Mean Platelet Volume 11.6 fL (7.4-10.4); Platelet Count 41 K/uL (130-400)
[2020-01-30 05:16] LABS: Albumin Globulin Ratio 1.4 (0.9-2); Albumin Level 2.6 gm/dl (3.4-5.0); BUN Creatinine Ratio 43.3 (10-20); Calcium 8.6 mg/dl (8.5-10.1); Creatinine Clr Calc Pharmacy 38.6 ml/min; Est GFR (African American) 57.8; Est GFR (Non-African American) 49.9; Globulin 1.9 gm/dl (2.5-4.0); Magnesium 2.6 mg/dl (1.8-2.4); Potassium 3.1 mmol/L (3.5-5.1); Total Protein 4.5 gm/dl (6.4-8.2)
[2020-01-30] MEDS: POTASSIUM CHLORIDE / WTR 10 MEQ/100 ML PLCT IV SCH ×6 (05:40→18:50)
--- NOTE | 2020-01-30 07:21 | XRay Report ---
KUB HISTORY: Status post placement of an enteric tube confirm NGT COMPARISON: ERCP 01/27/2020 FINDINGS: Status post placement of an enteric tube, distal tip terminating in the spectrum location o f the mid gastric body. Air-filled loops of large and small bowel are noted with large bowel measurin g up to 6.2 cm and small bowel measuring up to 3.6 cm.. There are 2 stents again noted within the dis tribution of the common bile duct. Stable unchanged positioning. Right lateral abdomen is excluded fr om the [id number]. Retained contrast within the gallbladder. There is no organomegaly. No renal c alculi. No ureteral calculi. No pneumoperitoneum or pneumatosis. No fracture. IMPRESSION: 1. Status post placement of an enteric tube, distal tip terminating in the expected location of the m id gastric lumen. 2. Stable positioning of the two common bile duct stents. 3. Distended air-filled loops of large and small bowel suggest ileus. ACT 112: Negative or not required by law. The above report was generated using voice recognition software. It may contain grammatical, syntax o r spelling errors. Electronically signed by: Ramo Armas M.D. 01/30/2020 7:19 AM
[2020-01-30] MEDS: PANTOprazole 40 MG in SYRINGE 0 ML IV SCH ×2 (07:35→19:55)
[2020-01-30] MEDS ORDERED: POTASSIUM PHOS 3 MMOL/1 ML INFUSION IV STA (07:41)
[2020-01-30] MEDS ORDERED: D5W AND 1/2NSS + 20MEQ KCL 20 MEQ/1,000 ML BAG IV SCH (08:00)
[2020-01-30] MEDS ORDERED: POTASSIUM PHOSPHATE 21 MMOL in SODIUM CHLORIDE 0.9% 500 ML IV ONE (08:30)
[2020-01-30] MEDS ORDERED: POTASSIUM PHOSPHATE 15 MMOL in DEXTROSE 5% 250 ML IV ONE (10:15)
--- NOTE | 2020-01-30 10:49 | Gastroenterology Progress Note ---
Date of Service January 30, 2020 Assessment & Plan Admission and Anticipated Discharge Date Admission Date: January 24, 2020 patient with unresectable cholangiocarcinoma who underwent recent therapy with chemo and radiation therapy presenting with a question of biliary of sepsis. Unfortunately the patient continues to worsen despite the biliary decompression. I wonder if her underlying changes are related to her recent chemo radiation therapy. Given her progressing albums perhaps she is best suited with a referral to a tertiary center for expert in him with regard to salvage regimens for her underlying liver disease. Recommendations Continue with broad-spectrum antibiotic coverage Agree with use of enteral nutrition Consider referral to a tertiary center Subjective Patient is not oriented to person place she does awaken to verbal stimuli today. Physical Exam Constitutional: + ill appearing and + cachectic Neck: trachea midline, no thyromegaly Respiratory: no respiratory distress, no labored breathing and does not use accessory muscles Auscultation: + crackles Cardiovascular: Heart Sounds: + murmur Gastrointestinal (Abdomen): Inspection/Auscultation: + abdomen distended Results & Data ([facility]) Vital Signs (Past 12 Hours) Vital Signs Temp Pulse Pulse Resp BP BP Pulse Ox 01/30/20 09:13 69 01/30/20 08:45 36.4 C L 70 19 149/69 H 98 01/30/20 08:00 36.4 C L 71 18 141/67 H 98 01/30/20 04:20 36.3 C L 77 29 H 135/59 L 96 01/30/20 04:10 91 H 26 H 97 01/30/20 04:00 85 22 99 01/30/20 03:50 65 11 L 98 01/30/20 03:40 77 25 H 97 01/30/20 03:30 75 23 97 01/30/20 03:20 88 27 H 97 01/30/20 03:10 91 H 26 H 98 01/30/20 03:00 77 27 H 97 01/30/20 02:50 85 24 99 01/30/20 02:40 67 23 98 01/30/20 02:30 72 20 98 01/30/20 02:20 84 21 99 01/30/20 02:10 85 24 99 01/30/20 02:00 88 25 H 98 01/30/20 01:50 21 98 01/30/20 01:40 28 H 97 01/30/20 01:30 79 27 H 99 01/30/20 01:20 84 25 H 98 01/30/20 01:10 82 26 H 98 01/30/20 01:00 90 30 H 97 01/30/20 00:50 87 25 H 97 01/30/20 00:40 83 23 96 01/30/20 00:30 63 25 H 96 01/30/20 00:01 36.3 C L 89 24 132/58 L 97 01/29/20 23:45 36.3 C L 89 26 H 130/63 98 Laboratory Results Laboratory Results - last 24 hr 01/29/20 01/29/20 01/30/20 16:13 16:14 04:12 WBC 6.48 RBC 2.90 L Hgb 10.1 L Hct 28.5 L MCV 98.3 MCH 34.8 H MCHC 35.4 RDW Std Deviation 59.9 H RDW Coeff of Nish 19.1 H Plt Count 44 L MPV 12.8 H Absolute Nucleated RBC 0.60 H Nucleated RBC % (auto) 9.3 Neutrophils % (Manual) 90.4 Lymphocytes % (Manual) 0.9 Monocytes % (Manual) 7.8 Metamyelocytes % (Man) 0.9 Neutrophils # (Manual) 5.86 Total Absolute Neuts 5.86 Lymphocytes # (Manual) 0.06 L Total Abs Lymphocytes 0.06 L Monocytes # (Manual) 0.51 Metamyelocytes # (Man) 0.06 H Toxic Granulation 1+ Platelet Estimate SIGNIFIC DECREASED Echinocytes 1+ PT INR Sodium 142 151 H D Potassium 3.6 3.1 L Chloride 122 H 126 H Carbon Dioxide 15 L 17 L Anion Gap 5.0 8.0 BUN 54 H 50 H Creatinine 1.19 1.15 Est Cr Clr Drug Dosing 37.3 38.6 Est GFR ( Amer) 55.5 57.8 Est GFR (Non-Af Amer) 47.9 49.9 BUN/Creatinine Ratio 45.1 H 43.3 H Glucose 109 H 121 H Calcium 8.6 8.6 Phosphorus 2.0 L Magnesium 2.6 H Total Bilirubin 1.3 H 1.0 AST 318 H 241 H ALT 239 H 219 H Alkaline Phosphatase 53 60 Total Protein 4.5 L 4.5 L Albumin 2.7 L 2.6 L Globulin 1.8 L 1.9 L Albumin/Globulin Ratio 1.5 1.4 01/30/20 01/30/20 04:12 04:12 WBC 5.21 RBC 2.90 L Hgb 10.2 L Hct 28.8 L MCV 99.3 MCH 35.2 H MCHC 35.4 RDW Std Deviation 60.3 H RDW Coeff of Nish 19.2 H Plt Count 41 L MPV 11.6 H Absolute Nucleated RBC 0.48 H Nucleated RBC % (auto) 9.1 Neutrophils % (Manual) Lymphocytes % (Manual) Monocytes % (Manual) Metamyelocytes % (Man) Neutrophils # (Manual) Total Absolute Neuts Lymphocytes # (Manual) Total Abs Lymphocytes Monocytes # (Manual) Metamyelocytes # (Man) Toxic Granulation Platelet Estimate Echinocytes PT 15.7 H INR 1.5 H Sodium Potassium Chloride Carbon Dioxide Anion Gap BUN Creatinine Est Cr Clr Drug Dosing Est GFR ( Amer) Est GFR (Non-Af Amer) BUN/Creatinine Ratio Glucose Calcium Phosphorus Magnesium Total Bilirubin AST ALT Alkaline Phosphatase Total Protein Albumin Globulin Albumin/Globulin Ratio
[2020-01-30] MEDS ORDERED: VANCOMYCIN TROUGH ONE (11:30)
--- NOTE | 2020-01-30 12:22 | Nephrology Progress Note ---
Date of Service January 30, 2020 Assessment & Plan (1) Acute kidney injury: 64 y o F With recent history of intrahepatic cholangiocarcinoma, received radiation and started on chemotherapy with Xeloda in November. Admitted with BRYCE, encephalopathy and acute liver failure. Initially was hyponatremic as well which currently improved. BRYCE seems to be hemodynamically mediated, renal function staying relatively stable however clinically still seems volume depleted. Blood pressure improved, has been on midodrine and octreotide. Renal function stable, but Na high with free water deficit with no po intake -- continue on D5W with KCL --avoid nephrotoxic medications --monitor renal function and electrolytes daily Will follow (2) Acute hyponatremia: (3) Encephalopathy: -- Elevated NH3 treated w/ Lactolose. Serum NH3 has normalized. Patient is now having profuse diarrhea. Consider reducing Lactulose dose. Await C. Difficile toxin assay results Admission and Anticipated Discharge Date Admission Date: January 24, 2020 Mike Waters was seen and examined this morning. She did not answer any question but seems more awake today. Blood pressure has been stable. Renal function relatively stable. Sodium high. Non-oliguric. Review of Systems Review of Systems: Unobtainable due to cognitive status Physical Exam Constitutional: + ill appearing and + altered mental status Respiratory: normal respiratory effort Auscultation: lungs clear to auscultation bilaterally Cardiovascular: RRR, no murmur, no edema Gastrointestinal (Abdomen): Inspection/Auscultation: normal bowel sounds Percussion/Palpation: abdomen soft; abdomen nontender, no guarding and abdomen not rigid Skin: no rashes, warm and dry Results & Data ([facility]) Vital Signs (Past 12 Hours) Vital Signs Temp Pulse Pulse Resp BP BP Pulse Ox 01/30/20 11:51 36.3 C L 71 18 138/70 96 01/30/20 09:13 69 01/30/20 08:45 36.4 C L 70 19 149/69 H 98 01/30/20 08:00 36.4 C L 71 18 141/67 H 98 01/30/20 04:20 36.3 C L 77 29 H 135/59 L 96 01/30/20 04:10 91 H 26 H 97 01/30/20 04:00 85 22 99 01/30/20 03:50 65 11 L 98 01/30/20 03:40 77 25 H 97 01/30/20 03:30 75 23 97 01/30/20 03:20 88 27 H 97 01/30/20 03:10 91 H 26 H 98 01/30/20 03:00 77 27 H 97 01/30/20 02:50 85 24 99 01/30/20 02:40 67 23 98 01/30/20 02:30 72 20 98 01/30/20 02:20 84 21 99 01/30/20 02:10 85 24 99 01/30/20 02:00 88 25 H 98 01/30/20 01:50 21 98 01/30/20 01:40 28 H 97 01/30/20 01:30 79 27 H 99 01/30/20 01:20 84 25 H 98 01/30/20 01:10 82 26 H 98 01/30/20 01:00 90 30 H 97 01/30/20 00:50 87 25 H 97 01/30/20 00:40 83 23 96 01/30/20 00:30 63 25 H 96 PG Care Time/CCT Total # of Minutes Spent Total Time Spent with Patient: Total time spent is greater than 50% in coordination of care (as documented) at patient's floor/unit and/or counseling patient: Coding Level of Care Code 49381 Subseq Hosp Care Lvl 3 Diagnoses Acute kidney injury N17.9 Acute hyponatremia E87.1 Encephalopathy G93.40
--- NOTE | 2020-01-30 12:40 | Hospitalist Progress Note ---
Date of Service January 30, 2020 Assessment & Plan (1) Encephalopathy: unclear etiology, anticipating that she might improve after ERCP with stent exchange for cholangitis on appropriate antibiotics, no fever, WBC normal renal function stable developing hypernatremia today which may affect her cognition, also some metabolic acidosis ammonia and TSH normal lactic acid only 2.1, it was as high as 8 earlier in the stay repeat labs in the AM, consider MRI brain if no improvement? today she will open eyes spontaneously, does not respond, does not follow commands moans periodically but then calms down without pain medication and sleeps (2) Cholangitis: On 01/25, she gradually became more lethargic and was AAOx1 by the evening. The morning of 01/26, she was obtunded. - Discussed case with oncology and we ran a differential with concern for acute liver failure possibly due to chemoradiation vs. her cancer. - Discussed with GI on 01/26 with concern for cholangitis and blocked bile duct stent. Underwent emergent ERCP with stent removal and replacement. - placed on Vanco and Zosyn initially cultures grew out Clostridium ramosum in one set of blood cultures changed antibiotics to Unasyn WBC normal, no fever, would expect mental status to improve if she was obtunded from infection KUB this morning shows stents in position, she has mild ileus (3) Bacteremia: Blood cultures from 01/24 growing Clostridium ramosum - continue on Unasyn, treated initially with Zosyn/Vanco which are stopped would treat for 14 days total for the bacteremia from negative culture - Consulted ID on 01/27 - Pending - Repeated blood cultures on 01/28; still no growth so far. (4) Hypernatremia: Na and Cl both elevated this morning Na up at 151, treated with D5W 1/2 NSS but then Na went up to 154 will change fluids to D5W only, run at 80cc/hr repeat BMP later this evening and in the morning (5) Atrial fibrillation: Entered afib with RVR the morning of 01/26 in the setting of sepsis. Echo on 01/26 showed EF >70%, no regional wall motions issues. - Returned to sinus rhythm by the late morning of 01/26. - Cardiology consulted - Appreciate assistance. Signed off. - Metoprolol IV PRN for HR > 110 - Given acute and self-limited nature, no anticoagulation, especially in light of the concern for GI bleed and thrombocytopenia. (6) Thrombocytopenia: Platelets were 187 on admission; down as low as 26 on 01/27. - Ddx includes TTP/DIC, both thought to be unlikely given no schistocytes seen on peripheral smear from 01/25. Fibrinogen was stable on 01/25 & 01/26. - HIT ruled out with negative PF4 Ab - most likely explanation is sepsis from her cholangitis - Trend; given platelets for plts < 30 given recent GI bleeding -> Received 1 unit of platelets on 01/27 - Platelets low at 41k but relatively stable, repeat in the morning (7) Intractable nausea and vomiting: Suspect chemotherapy-induced vs. from her cancer. Abdominal u/s on 01/24 showed only small ascites that was likely not amenable to paracentesis. Discussed with Dr. Myles who feels diagnostic paracentesis not needed as reaction to chemo-radiation is likely explanation. - Hold capecitabine & radiation at this time. - Continue ondansetron & metoclopramide -> Holding now as patient is lethargic, but is not vomiting. (8) Acute hyponatremia: Likely due to both hypovolemia and SIADH. Urine osms were ~1000 pointing to some element of SIADH. Cortisol > 150, so adrenal insuffic. ruled out. - Monitor - Once awake again, will restart fluid restriction. (9) Abdominal ascites: Secondary to underlying cancer versus chemoradiation. LFTs stable. Possible hyponatremia due to liver failure, although her overall fluid status does not appear to be hypervolemic. - U/s abdomen on 01/24 showed small ascites; not really amenable to paracentesis. - Unable to do the paracentesis on 01/26 or 01/27 due to too small a fluid pocket for safe tap. (10) Cholangiocarcinoma: Irresectable intrahepatic cholangiocarcinoma. - Hold capecitabine & radiation. will need to follow up with oncology once medically recovered from acute illness (11) Severe protein-calorie malnutrition: Consulted internet researcher for advice regarding supplementation. tube feeds (12) GERD (gastroesophageal reflux disease): - H2 kentrell PRN (13) Hypokalemia: up to 3.3 this afternoon after 40mEq IV replaced and KPhos given will give 20mEq IV further (14) Hypophosphatemia: resolved after 15mmol of K Phos in D5W (15) DVT prophylaxis: SCDs - Holding heparin for bleeding, anemia, and thromboyctopenia. Admission and Anticipated Discharge Date Admission Date: January 24, 2020 Subjective patient transferred up to 243 this morning from ICU, she had been tele status patient moaning, opening eyes spontaneously, will not answer questions clearly reviewed chart, discussed with Dr. Ferrera this morning by his account, the patient was speaking clearly and oriented on admission, has been obtunded since ERCP and stent exchange reviewed lab work, Na up to 151, Cl up to 126, K low at 3.1, CO2 low at 17 Cr 1.1, Phos low at 2.0, Mg 2.3, Bili normal at 1 and AST/ALT trending down WBC normal, Hb stable, platelets remain low at 41k reviewed GI notes and palliative care notes repeat labs in afternoon show Na up slightly to 153, change to D5W K up to 3.3, Phos normal Lactic 2.1, ammonia < 10, troponin exactly the same as two days ago, TSH normal called to speak with patient's sister Mary, went straight to voice mail will attempt again later Review of Systems Review of Systems: Unobtainable due to cognitive status Physical Exam Constitutional: well developed, + ill appearing, + thin and + lethargic; no acute distress Eyes: PERRL, conjunctivae normal, anicteric sclerae ENMT: external ear and nose normal, oropharynx normal Neck: trachea midline, no thyromegaly Respiratory: normal respiratory effort, lungs clear to auscultation Auscultation: + diminished lung sounds (bases) Cardiovascular: RRR, no murmur, no edema Gastrointestinal (Abdomen): Inspection/Auscultation: + abdomen distended and normal bowel sounds Percussion/Palpation: abdomen soft; abdomen nontender, no guarding and abdomen not rigid Musculoskeletal: Head/Neck/Chest: normocephalic and head atraumatic Extremities: extremities normal to inspection and + abnormal strength (generalized weakness); no cyanosis and no clubbing Skin: no rashes, warm and dry Neurologic: + obtunded; no focal motor deficits Psychiatric: Orientation: + not alert and + not oriented x 3 Lymphatic: no cervical or axillary lymphadenopathy Results & Data Results & Data ([facility]) Vital Signs (Past 12 Hours) Vital Signs Temp Pulse Pulse Resp BP BP Pulse Ox 01/30/20 11:51 36.3 C L 71 18 138/70 96 01/30/20 09:13 69 01/30/20 08:45 36.4 C L 70 19 149/69 H 98 01/30/20 08:00 36.4 C L 71 18 141/67 H 98 01/30/20 04:20 36.3 C L 77 29 H 135/59 L 96 01/30/20 04:10 91 H 26 H 97 01/30/20 04:00 85 22 99 01/30/20 03:50 65 11 L 98 01/30/20 03:40 77 25 H 97 01/30/20 03:30 75 23 97 01/30/20 03:20 88 27 H 97 01/30/20 03:10 91 H 26 H 98 01/30/20 03:00 77 27 H 97 01/30/20 02:50 85 24 99 01/30/20 02:40 67 23 98 01/30/20 02:30 72 20 98 01/30/20 02:20 84 21 99 01/30/20 02:10 85 24 99 01/30/20 02:00 88 25 H 98 01/30/20 01:50 21 98 01/30/20 01:40 28 H 97 01/30/20 01:30 79 27 H 99 01/30/20 01:20 84 25 H 98 01/30/20 01:10 82 26 H 98 01/30/20 01:00 90 30 H 97 01/30/20 00:50 87 25 H 97 01/30/20 00:40 83 23 96 Laboratory Results Laboratory Results - last 24 hr 01/29/20 01/29/20 01/30/20 16:13 16:14 04:12 WBC 6.48 RBC 2.90 L Hgb 10.1 L Hct 28.5 L MCV 98.3 MCH 34.8 H MCHC 35.4 RDW Std Deviation 59.9 H RDW Coeff of Nish 19.1 H Plt Count 44 L MPV 12.8 H Absolute Nucleated RBC 0.60 H Nucleated RBC % (auto) 9.3 Neutrophils % (Manual) 90.4 Lymphocytes % (Manual) 0.9 Monocytes % (Manual) 7.8 Metamyelocytes % (Man) 0.9 Neutrophils # (Manual) 5.86 Total Absolute Neuts 5.86 Lymphocytes # (Manual) 0.06 L Total Abs Lymphocytes 0.06 L Monocytes # (Manual) 0.51 Metamyelocytes # (Man) 0.06 H Toxic Granulation 1+ Platelet Estimate SIGNIFIC DECREASED Echinocytes 1+ PT INR Sodium 142 151 H D Potassium 3.6 3.1 L Chloride 122 H 126 H Carbon Dioxide 15 L 17 L Anion Gap 5.0 8.0 BUN 54 H 50 H Creatinine 1.19 1.15 Est Cr Clr Drug Dosing 37.3 38.6 Est GFR ( Amer) 55.5 57.8 Est GFR (Non-Af Amer) 47.9 49.9 BUN/Creatinine Ratio 45.1 H 43.3 H Glucose 109 H 121 H Lactate Calcium 8.6 8.6 Phosphorus 2.0 L Magnesium 2.6 H Total Bilirubin 1.3 H 1.0 Direct Bilirubin AST 318 H 241 H ALT 239 H 219 H Alkaline Phosphatase 53 60 Ammonia Troponin I Total Protein 4.5 L 4.5 L Albumin 2.7 L 2.6 L Globulin 1.8 L 1.9 L Albumin/Globulin Ratio 1.5 1.4 TSH 01/30/20 01/30/20 01/30/20 04:12 04:12 14:12 WBC 5.21 RBC 2.90 L Hgb 10.2 L Hct 28.8 L MCV 99.3 MCH 35.2 H MCHC 35.4 RDW Std Deviation 60.3 H RDW Coeff of Nish 19.2 H Plt Count 41 L MPV 11.6 H Absolute Nucleated RBC 0.48 H Nucleated RBC % (auto) 9.1 Neutrophils % (Manual) Lymphocytes % (Manual) Monocytes % (Manual) Metamyelocytes % (Man) Neutrophils # (Manual) Total Absolute Neuts Lymphocytes # (Manual) Total Abs Lymphocytes Monocytes # (Manual) Metamyelocytes # (Man) Toxic Granulation Platelet Estimate Echinocytes PT 15.7 H INR 1.5 H Sodium 154 H Potassium 3.3 L Chloride 127 H Carbon Dioxide 17 L Anion Gap 10.0 BUN 42 H Creatinine 1.12 Est Cr Clr Drug Dosing 38.8 Est GFR ( Amer) 59.7 Est GFR (Non-Af Amer) 51.5 BUN/Creatinine Ratio 37.4 H Glucose 232 H Lactate Calcium 8.1 L Phosphorus 2.5 Magnesium Total Bilirubin 0.9 Direct Bilirubin 0.4 H AST 182 H ALT 205 H Alkaline Phosphatase 56 Ammonia Troponin I 0.723 H* Total Protein 4.3 L Albumin 2.3 L Globulin Albumin/Globulin Ratio TSH 0.361 01/30/20 01/30/20 14:12 14:12 WBC RBC Hgb Hct MCV MCH MCHC RDW Std Deviation RDW Coeff of Nish Plt Count MPV Absolute Nucleated RBC Nucleated RBC % (auto) Neutrophils % (Manual) Lymphocytes % (Manual) Monocytes % (Manual) Metamyelocytes % (Man) Neutrophils # (Manual) Total Absolute Neuts Lymphocytes # (Manual) Total Abs Lymphocytes Monocytes # (Manual) Metamyelocytes # (Man) Toxic Granulation Platelet Estimate Echinocytes PT INR Sodium Potassium Chloride Carbon Dioxide Anion Gap BUN Creatinine Est Cr Clr Drug Dosing Est GFR ( Amer) Est GFR (Non-Af Amer) BUN/Creatinine Ratio Glucose Lactate 2.6 H* Calcium Phosphorus Magnesium Total Bilirubin Direct Bilirubin AST ALT Alkaline Phosphatase Ammonia < 10.0 L Troponin I Total Protein Albumin Globulin Albumin/Globulin Ratio TSH Medications Administered Current Inpatient Medications Enteral Nutritional Formula (Peptamen 1.5 [place]) 1,000 ml NG DAILY PHAM; Protocol Stop: 02/28/20 10:44 Last Admin: 01/30/20 14:26 Dose: 1,000 ml Documented by: Pantoprazole Sodium 40 mg/ (Syringe) 10 mls @ 5 mls/min IV BID PHAM Stop: 02/27/20 20:59 Last Admin: 01/30/20 07:35 Dose: 5 mls/min Documented by: Ampicillin Sodium/Sulbactam Sodium 3,000 mg/ Sodium Chloride 108 mls @ 200 mls/hr IV Q6H PHAM; Protocol Stop: 02/12/20 15:59 Last Infusion: 01/30/20 10:50 Dose: Infused Documented by: Dextrose (D5w) 1,000 mls @ 80 mls/hr IV .[id number] PHAM Stop: 02/29/20 15:59 Potassium Chloride (K Jabier / Wtr) 10 meq in 100 mls @ 100 mls/hr IV Q1H PHAM Stop: 01/30/20 17:59 Metoclopramide HCl (Reglan) 10 mg IV Q6H PRN PRN Reason: Nausea and Vomiting Stop: 02/23/20 16:52 Last Admin: 01/26/20 00:22 Dose: 10 mg Documented by: Metoprolol Tartrate (Lopressor) 5 mg IV Q1H PRN PRN Reason: HR > 110 Stop: 02/26/20 15:31 Morphine Sulfate (Morphine Sulfate) 1 mg IV Q2H PRN PRN Reason: Moderate Pain Stop: 02/13/20 01:57 Last Admin: 01/30/20 14:45 Dose: 1 mg Documented by: Morphine Sulfate (Morphine Sulfate) 2 mg IV Q2H PRN PRN Reason: SEVERE PAIN Stop: 02/13/20 02:06 Ondansetron HCl (Zofran) 4 mg IV Q6H PRN PRN Reason: Nausea Stop: 02/23/20 16:52 Last Admin: 01/26/20 04:35 Dose: 4 mg Documented by: PG Care Time/CCT Total # of Minutes Spent Total Time Spent with Patient: Total time spent is greater than 50% in coordination of care (as documented) at patient's floor/unit and/or counseling patient: Coding Level of Care Code 74970 Subseq Hosp Care Lvl 3 Diagnoses Encephalopathy G93.40 Cholangitis K83.09 Bacteremia R78.81 Hypernatremia E87.0 Atrial fibrillation I48.91 Thrombocytopenia D69.6 Intractable nausea and vomiting R11.2 Acute hyponatremia E87.1 Abdominal ascites R18.8 Ascites type: other type Cholangiocarcinoma C22.1 Severe protein-calorie malnutrition E43 GERD (gastroesophageal reflux disease) K21.9 Hypokalemia E87.6 Hypophosphatemia E83.39 DVT prophylaxis Z29.9 (1) Abdominal ascites Ascites type: other type Qualified Code(s): R18.8 - Other ascites
[2020-01-30] MEDS: PEPTAMEN 1.5 CAL 1,000 ML BAG NG SCH ×2 (13:38→14:26)
[2020-01-30 14:37] LABS: Albumin Level 2.3 gm/dl (3.4-5.0); BUN Creatinine Ratio 37.4 (10-20); Bilirubin Direct 0.4 mg/dl (0-0.2); Calcium 8.1 mg/dl (8.5-10.1); Creatinine Clr Calc Pharmacy 38.8 ml/min; Est GFR (African American) 59.7; Est GFR (Non-African American) 51.5; Potassium 3.3 mmol/L (3.5-5.1)
[2020-01-30 14:50] LABS: Bilirubin,Total 0.9 mg/dl (0.2-1); Phosphorus 2.5 mg/dl (2.5-4.9); Thyroid Stimulating Hormone 0.361 uIu/ml (0.300-4.500); Total Protein 4.3 gm/dl (6.4-8.2); Troponin I 0.723 ng/ml (0-0.045)
[2020-01-30] MEDS: DEXTROSE 5% 1,000 ML IV SCH (15:47)
[2020-01-30 22:23] LABS: BUN Creatinine Ratio 36.3 (10-20); Calcium 8.7 mg/dl (8.5-10.1); Creatinine Clr Calc Pharmacy 40.6 ml/min; Est GFR (African American) 63.1; Est GFR (Non-African American) 54.4; Potassium 3.5 mmol/L (3.5-5.1)
[2020-01-31] MEDS: AMPICILLIN/SULBACTAM SOD 3,000 MG in 0.9 % SODIUM CHLORIDE 100 ML IV SCH ×2 (04:54→11:09)
[2020-01-31] MEDS: DEXTROSE 5% 1,000 ML IV SCH (04:55)
[2020-01-31] MEDS: MoRPHine SULFATE 2 MG/ML CARP IV PRN ×3 (05:19→16:56)
[2020-01-31 06:57] LABS: INR 1.4 (0.9-1.1); Prothrombin Time 14.4 Seconds (9.0-12.0)
[2020-01-31 07:00] LABS: Platelet Count 9 K/uL (130-400)
[2020-01-31 07:01] LABS: Albumin Level 2.5 gm/dl (3.4-5.0); BUN Creatinine Ratio 32.6 (10-20); Calcium 8.5 mg/dl (8.5-10.1); Creatinine Clr Calc Pharmacy 41.8 ml/min; Est GFR (African American) 63.8; Est GFR (Non-African American) 55.1; Magnesium 3.1 mg/dl (1.8-2.4); Potassium 3.2 mmol/L (3.5-5.1)
[2020-01-31 07:10] LABS: Bilirubin,Total 1.1 mg/dl (0.2-1); Globulin 2.4 gm/dl (2.5-4.0); Phosphorus 1.7 mg/dl (2.5-4.9); Total Protein 4.9 gm/dl (6.4-8.2)
[2020-01-31 07:31] LABS: Anisocytosis Present; Basophils # (auto) 0.01 K/uL (0-0.2); Basophils % (auto) 0.2 %; Echinocytes 1+; Eosinophils # (auto) 0.04 K/uL (0-0.5); Eosinophils % (auto) 0.6 %; Hematocrit (blood only) 33.3 % (37-47); Hemoglobin 11.6 g/dL (12.0-16.0); Howell-Jolly Bodies 1+; Immature Granulocytes # (auto) 0.03 K/uL (0.00-0.02); Immature Granulocytes % (auto) 0.5 %; Lymphocytes # (auto) 0.21 K/uL (1.2-3.4); Lymphocytes % (auto) 3.3 %; Mean Corpuscular Hemoglobin 34.7 pg (25-34); Mean Corpuscular Hgb Conc 34.8 g/dL (32-36); Mean Corpuscular Volume 99.7 fL (80-100); Monocytes # (auto) 1.39 K/uL (0.11-0.59); Neutrophils # (auto) 4.65 K/uL (1.4-6.5); Neutrophils % (auto) 73.4 %; Nucleated RBC # (auto) 0.25 K/uL (0-0); Nucleated RBC % (auto) 3.9 %; Platelet Estimate SIGNIFIC DECREASED (Normal); Polychromasia 1+; RDW Coefficient of Variation 20.7 % (11.5-14.5); RDW Standard Deviation 64.3 fL (36.4-46.3); Red Blood Count 3.34 M/uL (4.2-5.4); Schistocytes 1+; White Blood Count 6.33 K/uL (4.8-10.8)
[2020-01-31 07:32] LABS: Dohle Bodies 1+; Toxic Granulation 1+
[2020-01-31] MEDS ORDERED: Nursing to Pharmacy Communication ONE (07:47)
[2020-01-31] MEDS: PANTOprazole 40 MG in SYRINGE 0 ML IV SCH (08:12)
[2020-01-31] MEDS ORDERED: POTASSIUM PHOS 3 MMOL/1 ML INFUSION IV STA (08:14)
[2020-01-31 08:25] LABS: Base Excess VBG -6.7 mEq/L; Oxygen Saturation VBG 79.9 %; pH VBG 7.42 (7.36-7.41)
[2020-01-31 08:27] LABS: Hematocrit (blood only) 34.9 % (37-47); Hemoglobin 12.2 g/dL (12.0-16.0); Mean Corpuscular Hemoglobin 34.9 pg (25-34); Mean Corpuscular Volume 99.7 fL (80-100); Nucleated RBC % (auto) 4.4 %; Platelet Count 8 K/uL (130-400); RDW Coefficient of Variation 20.9 % (11.5-14.5); RDW Standard Deviation 64.2 fL (36.4-46.3)
[2020-01-31] MEDS ORDERED: POTASSIUM PHOSPHATE 24 MMOL in SODIUM CHLORIDE 0.9% 500 ML IV ONE (08:30)
[2020-01-31 08:33] LABS: Fibrinogen 239 mg/dl (184-400)
[2020-01-31] MEDS ORDERED: MoRPHine SULFATE 4 MG/ML 1 ML CARP\\VIAL ONE (08:45)
[2020-01-31 09:08] LABS: Anisocytosis Present; Basophils # (auto) 0.01 K/uL (0-0.2); Basophils % (auto) 0.1 %; Dohle Bodies 1+; Echinocytes 1+; Eosinophils # (auto) 0.03 K/uL (0-0.5); Eosinophils % (auto) 0.4 %; Howell-Jolly Bodies 1+; Immature Granulocytes # (auto) 0.04 K/uL (0.00-0.02); Immature Granulocytes % (auto) 0.6 %; Lymphocytes # (auto) 0.84 K/uL (1.2-3.4); Lymphocytes % (auto) 12.4 %; Monocytes % (auto) 11.8 %; Neutrophils # (auto) 5.08 K/uL (1.4-6.5); Neutrophils % (auto) 74.7 %; Polychromasia 1+; Schistocytes 1+; Toxic Granulation 1+
--- NOTE | 2020-01-31 09:55 | Procedure Note ---
Procedure Note Date of Service January 31, 2020 Coding CPT Codes Tubes, Drains, and Vasc Access - Tubes, Drains, and Vasc Access: [id number] Place catheter in vein superior or inferior vena cava ([id number]) [facility] [place] Procedure Codes (Charges) Indication for Procedure Indication for procedure: Inability to get IV access Time-out was performed with nursing and EVER Lynn. The patient was lying in the Trendelenburg position with head turned 30 degrees away from the insertion site. The skin was thoroughly sponged with chlorhexidine and allowed to dry. All persons involved were shielded with hairnets, facemasks and sterile gowns. With sterile- gloved hands the right neck area was draped with the large disposable sterile field provided in the pre-manufactured kit. RIJ was The skin and subcutaneous tissues superficial to the right internal jugular vein were anesthetized with ____ mL of 1% lidocaine. The internal jugular vein was identified on ultrasound from the angle of the mandible down into the supraclavicular fossa using the linear ultrasound probe in the transverse orientation. The carotid artery was identified and avoided utilizing color-flow. The internal jugular vein was then placed in the center of the ultrasound field and compressed for patency. A movement artifact was identified as the needle was advanced through the skin and advanced toward the vessel. A real time hyperechoic signal revealed visualization of vascular needle entry into the lumen as blood was noted to flashback in the syringe. The needle was then held in place while the guide wire was advanced. The needle was then removed. Direct visualization of guide wire location within the vein was noted on ultrasound indicating proper placement. A skin dilator was advanced over the guidewire and removed, and the triple-lumen catheter was then advanced over the guide wire into proper position. The guide wire was removed and discarded. The ports were aspirated which showed good blood return and then carefully flushed with normal saline. The catheter was stabilized and sutured to the skin with 2-0 silk at 2 anchor points. A sterile bioocclusive dressing was placed over the catheter, including the insertion site. The patient tolerated the procedure well. A chest x-ray was ordered for position confirmation. An image recording of the procedure accompanies the chart. Tubes, Drains, and Vasc Access Procedure 1: Tubes, Drains, and Vasc Access: [id number] Place catheter in vein superior or inferior vena cava (Right internal jugular)
--- NOTE | 2020-01-31 09:57 | XRay Report ---
XR chest 1V portable CLINICAL HISTORY: Central line placement confirment tube position COMPARISON STUDY: 01/27/2020 FINDINGS: Central catheter placed in the right atrium. Nasogastric tube within the gastric fundus. Unchanged left basilar atelectasis. Lungs otherwise are grossly clear. IMPRESSION: 1. Central catheter placed in the right atrium. 2. No evidence for pneumothorax. 3. Nasogastric tube remains within the gastric fundus. 4. Unchanged minimal bibasilar atelectatic change. ACT 112: Negative or not required by law. The above report was generated using voice recognition software. It may contain grammatical, syntax or spelling errors. Electronically signed by: Silverio Chambers M.D. 01/31/2020 9:56 AM
--- NOTE | 2020-01-31 10:18 | Infectious Disease Consult ---
Date of Consultation January 31, 2020 Assessment & Plan (1) Cholangitis: (2) Sepsis: agree with 14 days unasyn. repeat blood cultures negative. History of Present Illness Attending Physician: Honorio Ferrera MD pt admitted with abd pain and n/v. she has cholangiocarcinoma and is undergoing chemo for this. CT abd done on 01/23 showed increased ascites and CBD stent in place. she had increased LFTs AST as high as 411 and ALT 239. GI is following, she underwent ERCP on 01/26 and was found to have an occluded stent, this was changed, she tolerated well. LFTS improving. she has been afebrile. she is lethargic and non verbal on my exam. her platelets are 8 today. creat 1.0. She had blood cultures on 01/25 - set is growing Clostridium, she was initially on vanco, she is now on unasyn and tolerating, repeat blood cultures are negative to date. UA and c diff are negative. ID consulted for + blood cultures. Allergies Allergy/AdvReac Type Severity Reaction Status Date / Time No Known Allergies Allergy Verified 01/24/20 11:07 Home Medications Home Medications Medication Instructions Recorded Confirmed Type ascorbic acid (vitamin C) [Vitamin 1,000 mg PO HS 08/05/18 01/24/20 History C] aspirin 81 mg PO HS 08/05/18 01/24/20 History atenolol 50 mg PO HS 08/05/18 01/24/20 History dicyclomine 10 mg PO DAILY PRN 08/05/18 01/24/20 History vitamin E 400 unit PO HS 08/05/18 01/24/20 History hyoscyamine sulfate 0.125 mg tablet 0.125 mg PO QID PRN 11/30/19 01/24/20 History vitamin B complex 1 tab PO DAILY 11/30/19 01/24/20 History capecitabine 150 mg tablet 150 mg PO BID 12/27/19 01/24/20 History capecitabine 500 mg tablet 1,000 mg PO BID tab 12/27/19 01/24/20 History ondansetron HCl 8 mg tablet 8 mg PO Q8H 01/10/20 01/24/20 History Patient History Medical History Acute kidney injury Atrial fibrillation Biliary stricture (Inactive) Elevated troponin Encephalopathy GERD (gastroesophageal reflux disease) Well controlled. 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 Portal vein thrombosis Thrombocytopenia Surgical History History of ERCP with multiple stent placements Hx of hand surgery left as child Family History Mother , age 73 Coronary heart disease Father , age 63 of [place] Myocardial infarction Sister No problems noted. Brother Coronary heart disease stent placement done Sister No problems noted. Social History Preferred Language: Citizen Of [place] Communication Ability: Effective Battery Stacker Required: No Beliefs That Will Affect Care: None marital status: Single Current Living Situation: Alone Other Information That Helps Us Care for You: No Feels Safe at Home: Yes Safety Concerns: Feels Safe At This Time Smoking Status: Current every day smoker Tobacco Type: cigarettes ; Cigarettes Per Day: 5 ; Second Hand Exposure: No ; Hx Alcohol Use: No (socially) Hx Substance Use: No caffeine: Yes (2 cups a day) during the past year weight has: decreased > 10 lbs Dental Care, Regularly: Yes Review of Systems Review of Systems: Unobtainable due to cognitive status and Unobtainable due to reduced consciousness Physical Exam Constitutional: WD/WN, vitals as above ENMT: external ear and nose normal, oropharynx normal Mouth: + dry oral mucous membranes Neck: normal visual inspection Respiratory: normal respiratory effort, lungs clear to auscultation Auscultation: + diminished lung sounds Cardiovascular: RRR, no murmur, no edema Gastrointestinal (Abdomen): Inspection/Auscultation: + abdomen distended Percussion/Palpation: abdomen nontender and no guarding Musculoskeletal: Head/Neck/Chest: normocephalic and head atraumatic Skin: no rashes, warm and dry + jaundice Psychiatric: lethargic Results & Data ([facility]) Vital Signs (Past 12 Hours) Vital Signs Temp Pulse Resp BP BP Pulse Ox 01/31/20 07:20 36.7 C 100 H 21 118/78 96 01/31/20 03:53 36.5 C 89 17 123/81 97 01/30/20 23:11 36.5 C 82 17 123/74 97 Laboratory Results Microbiology 01/28/20 16:00 Stool Escherichia coli Shiga Toxins Test - Final 01/28/20 16:00 Stool Stool Culture - Final No Salmonella isolated, No Shigella isolated, No Campylobacter jejuni isolated. 01/29/20 04:33 Blood Aerobic Blood Culture - Preliminary No growth in Aerobic bottle after 48 hours. 01/29/20 04:33 Blood Anaerobic Blood Culture - Preliminary No growth in Anaerobic bottle after 48 hours. 01/29/20 04:39 Blood Aerobic Blood Culture - Preliminary No growth in Aerobic bottle after 48 hours. 01/29/20 04:39 Blood Anaerobic Blood Culture - Preliminary No growth in Anaerobic bottle after 48 hours. 01/26/20 16:57 Blood Aerobic Blood Culture - Preliminary No growth in Aerobic bottle after 48 hours. 01/26/20 16:57 Blood Anaerobic Blood Culture - Preliminary Clostridium ramosum 01/26/20 17:15 Blood Aerobic Blood Culture - Preliminary No growth in Aerobic bottle after 48 hours. 01/26/20 17:15 Blood Anaerobic Blood Culture - Final PG Care Time/CCT Total # of Minutes Spent Total Time Spent with Patient: Total time spent is greater than 50% in coordination of care (as documented) at patient's floor/unit and/or counseling patient: Coding Level of Care Code 88530 Inpt Consult Level 4 Diagnoses Cholangitis K83.09 Sepsis A41.9
[2020-01-31] MEDS: POTASSIUM CHLORIDE / WTR 10 MEQ/100 ML PLCT IV SCH ×4 (10:35→14:37)
[2020-01-31] MEDS ORDERED: IOVERSOL 100ml IV PRN (11:32)
--- NOTE | 2020-01-31 11:38 | Nephrology Progress Note ---
Date of Service January 31, 2020 Assessment & Plan (1) Acute kidney injury: 64 y o F With recent history of intrahepatic cholangiocarcinoma, received radiation and started on chemotherapy with Xeloda in November. Admitted with BRYCE, encephalopathy and acute liver failure. Initially was hyponatremic as well which currently improved. BRYCE seems to be hemodynamically mediated, renal function staying relatively stable however clinically still seems volume depleted. Blood pressure improved, has been on midodrine and octreotide. Renal function stable, but Na high with free water deficit with no po intake. Creatinine has been relatively stable. Has decent urine output, no hypotensive episode. --continue on D5W with KCL --monitor renal function and electrolytes daily Will follow (2) Acute hyponatremia: (3) Encephalopathy: -- Elevated NH3 treated w/ Lactolose. Serum NH3 has normalized. Patient is now having profuse diarrhea. Consider reducing Lactulose dose. Await C. Difficile toxin assay results Admission and Anticipated Discharge Date Admission Date: January 24, 2020 Physical Exam Constitutional: + acute distress, + ill appearing and + altered mental status Respiratory: normal respiratory effort Auscultation: + diminished lung sounds Cardiovascular: RRR, no murmur, no edema Neurologic: + obtunded Minimally responsive but no meaningful communication Results & Data ([facility]) Vital Signs (Past 12 Hours) Vital Signs Temp Pulse Pulse Resp BP BP BP 01/31/20 11:01 36.1 C L 110 H 17 117/78 01/31/20 10:59 36.3 C L 114 H 16 122/77 01/31/20 10:44 36.7 C 109 H 15 132/82 01/31/20 10:25 36.5 C 94 H 15 126/68 01/31/20 07:20 36.7 C 100 H 21 118/78 01/31/20 03:53 36.5 C 89 17 123/81 Pulse Ox 01/31/20 11:01 97 01/31/20 10:59 97 01/31/20 10:44 100 01/31/20 10:25 97 01/31/20 07:20 96 01/31/20 03:53 97 PG Care Time/CCT Total # of Minutes Spent Total Time Spent with Patient: Total time spent is greater than 50% in coordination of care (as documented) at patient's floor/unit and/or counseling patient: Coding Level of Care Code 63499 Subseq Hosp Care Lvl 2 Diagnoses Acute kidney injury N17.9 Acute hyponatremia E87.1 Encephalopathy G93.40
--- NOTE | 2020-01-31 11:49 | CT Scan Report ---
CT head/brain wo con CLINICAL HISTORY: 64 years-old Female presenting with Thrombocytopenia; AMS, history of cholangiocarc inoma. TECHNIQUE: Multidetector CT imaging of the head was performed without the use of intravenous contrast . IV contrast: None. One or more dose lowering techniques were used consistent with the principles of ALARA (as low as reasonably achievable), including automatic exposure control, mA or kV adjustment t o individual patient size, and/or use of iterative reconstruction. COMPARISON: 01/27/2020. CT DOSE (mGy.cm): The estimated cumulative dose is 1227.76. FINDINGS: [employer] topogram: Unremarkable. Ventricles and sulci normal in size. No hemorrhage. Subtle hypodensity in the region of the right par ietal lobe is again noted (series 2 images 21 and 22). Remainder of brain parenchyma appears normal. No acute territorial infarct. No mass effect or midline shift. No extra-axial fluid collection. Paran [place] sinuses and mastoid air cells clear. Calvarium intact. Nasogastric tube in place. IMPRESSION: 1. No change in the small indeterminant hypodense focus in the right parietal lobe. Again, contrast enhanced brain MRI recommended for further assessment. This may represent a limited old cortical infa rct. Underlying lesion is not favored though cannot be completely excluded. 2. No convincing evidence of acute intracranial pathology. ACT 112: Negative or not required by law. Electronically signed by: Ken Ivory M.D. 01/31/2020 11:48 AM
--- NOTE | 2020-01-31 11:59 | Ultrasound Report ---
US venous doppler UE RT CLINICAL HISTORY: 64 years-old Female presenting with Right arm swelling; DVT?. TECHNIQUE: Real-time grayscale and color and spectral Doppler ultrasound imaging of the veins of the right upper extremity was performed. Compression and augmentation were also utilized. COMPARISON: None. FINDINGS: The presence of a central line limits evaluation. RIGHT: Internal jugular vein: Not visualized. Subclavian vein: Not visualized in the proximal to midportion. Remainder patent. Axillary vein: Patent. Brachial vein: Patent. Basilic vein (superficial): Patent. Cephalic vein (superficial): Not visualized. Radial vein: Patent. Ulnar vein: Patent. Other: Extensive subcutaneous edema in the right arm most pronounced in the upper arm. IMPRESSION: 1. Allowing for limitations, no evidence of deep venous thrombosis. 2. Nonspecific extensive subcutaneous edema. ACT 112: Negative or not required by law. Electronically signed by: Ken Ivory M.D. 01/31/2020 11:57 AM
[2020-01-31] MEDS ORDERED: PEPTAMEN 1.5 CAL 1,000 ML BAG NG SCH (12:00)
--- NOTE | 2020-01-31 12:02 | CT Scan Report ---
CT OF THE ABDOMEN AND PELVIS WITH CONTRAST CLINICAL HISTORY: Known cholangiocarcinoma; cholangitis; stenting COMPARISON STUDY: CT of the abdomen and pelvis January 24, 2020. TECHNIQUE: Following IV administration of 94 mL of Optiray-320, axial images of the abdomen and pelvi s were obtained from the lung bases to the proximal femurs. Images were reviewed in the axial, sagitt al, and coronal planes. IV contrast was administered without complication. Automated exposure contro l was utilized for the study. A dose lowering technique was utilized adhering to the principles of A MIGUEL ANGEL. CT DOSE: 1227.76 mGy.cm FINDINGS: Imaged portions of the lower chest demonstrate a small right pleural effusion with associat ed atelectasis. There has been interval development of multiple subpleural groundglass opacities with in the lower lungs since CT of January 24, 2020. No pneumatosis, free air or portal venous gas is prese nt. [address] Biliary ductal dilatation has improved since CT of July 25, 2020. Mild residual biliary ductal dilatation is present. An ill-defined left hepatic lobe mass is unchange d since prior CT, measuring approximately 2.9 cm. Note is made of interval development of multiple salmon bcapsular right hepatic lobe hypodense foci that measure up to 4.8 cm. The spleen, adrenal glands, ki dneys and pancreas are unremarkable. There is no hydronephrosis. Occlusion of the left portal vein is unchanged. This is chronic. There is also severe narrowing of the proximal right portal vein which i s similar to prior exam. Superior mesenteric vein is patent. Mild small bowel wall thickening is glenn lar to prior exams. The colon is mildly dilated and fluid-filled. There is no evidence for a bowel ob struction. No suspicious osseous lesions are noted. There is anasarca. This has increased. There is c ontrast within the gallbladder from recent ERCP. IMPRESSION: 1. [address] with interval improvement in biliary ductal dilatation since CT of January 24, 2020. Redemonstration of the ill-defined left hepatic lobe mass which represents the primary zandra plasm. 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 2. Interval development of several subcapsular hypodense foci within the liver, measuring up to 4.8 c m. These are nonspecific and may reflect phlegmon/developing abscesses or hepatic infarcts. Short-ter m CT is suggested. Findings discussed with Dr. Ferrera at time of dictation. 3. Interval development of multiple small subpleural ground glass opacities within the lower lungs. T hese favor an infectious etiology or sequela of aspiration. 4. Slight increase in moderate ascites. 5. No significant change in mild small bowel wall thickening since CT of January 24, 2020. Mild distend ed, fluid filled colon without evidence for a bowel obstruction. ACT 112: Negative or not required by law. Electronically signed by: Cong Truong M.D. 01/31/2020 12:01 PM
[2020-01-31 13:18] LABS: Nucleated RBC # (auto) 0.23 K/uL (0-0); Nucleated RBC % (auto) 4.2 %
--- NOTE | 2020-01-31 13:23 | Procedure Note ---
Procedure Note Date of Service January 31, 2020 Note Done for inability to get IV access despite multiple attempts and multiple providers. Time-out was performed with Meño Collado and nursing staff. The patient was lying in the Trendelenburg position with head turned 30 degrees away from the insertion site. The skin was thoroughly sponged with chlorhexidine and allowed to dry. All persons involved were shielded with hairnets, facemasks and sterile gowns. Ultrasound was used to identify appropriate spot for catheter entry. With sterile-gloved hands the right neck area was draped with the large disposable sterile field provided in the pre-manufactured kit. The skin and subcutaneous tissues superficial to the right internal jugular vein were anesthetized with 2 mL of 1% lidocaine. The internal jugular vein was re-identified on ultrasound from the angle of the mandible down into the supraclavicular fossa using the linear ultrasound probe. The carotid artery was identified. The internal jugular vein was then placed in the center of the ultrasound field and compressed for patency. A movement artifact was identified as the needle was advanced through the skin and advanced toward the vessel. A real time hyperechoic signal revealed visualization of vascular needle entry into the lumen as blood was noted to flashback in the syringe. The needle was then held in place while the guide wire was advanced. The needle was then removed. Direct visualization of guide wire location within the vein was noted on ultrasound indicating proper placement. A small jesusita was made with a scalpel. A skin dilator was advanced over the guidewire and removed, and the triple-lumen catheter was then advanced over the guide wire into proper position. The guide wire was removed, confirmed as whole, and discarded. The ports were aspirated which showed good blood return and then carefully f lushed with normal saline. The catheter was stabilized and sutured to the skin. A sterile bio-occlusive dressing was placed over the catheter, including the insertion site. The patient tolerated the procedure well with no complications. A chest x-ray confirmed placement in the SVC with tip ending in the right atrium. An image recording of the procedure accompanies the chart. Coding CPT Codes Tubes, Drains, and Vasc Access - Tubes, Drains, and Vasc Access: [id number] Place catheter in vein superior or inferior vena cava ([id number]) Tubes, Drains, and Vasc Access - Tubes, Drains, and Vasc Access: [id number] Ultrasound Guidance For Vascular ([id number]) [facility] [place] Procedure Codes (Charges) Tubes, Drains, and Vasc Access Procedure 1: Tubes, Drains, and Vasc Access: [id number] Place catheter in vein superior or inferior vena cava (Right IJ) Procedure 2: Tubes, Drains, and Vasc Access: [id number] Ultrasound Guidance For Vascular (Right internal jugular)
[2020-01-31 13:39] LABS: Hematocrit (blood only) 30.1 % (37-47); Hemoglobin 10.7 g/dL (12.0-16.0); Mean Corpuscular Hemoglobin 35.7 pg (25-34); Mean Corpuscular Hgb Conc 35.5 g/dL (32-36); Mean Corpuscular Volume 100.3 fL (80-100); Mean Platelet Volume 9.8 fL (7.4-10.4); Platelet Count 40 K/uL (130-400); RDW Coefficient of Variation 20.9 % (11.5-14.5); RDW Standard Deviation 64.8 fL (36.4-46.3); White Blood Count 5.51 K/uL (4.8-10.8)
[2020-01-31 13:44] LABS: Platelet Estimate Decreased (Normal)
--- NOTE | 2020-01-31 14:29 | Palliative Care Progress Note ---
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 Patient reports worsening of symptoms for last six weeks since beginning treatment. Patient was first discovered to have biliary stricture in 2018, no malignancy was found at that time. She has undergone multiple biliary stenting procedures. She follows with [facility] heme/onc. Patient continued to have intermittent issues with abdominal pain-- MRI did not show lesion, bile duct brushings were benign. However, CA19-9 remained elevated, occult malignancy was suspected. Patient eventually underwent enhanced liver ultrasound at [facility] in October 2019, with biopsy which confirmed adenocarcinoma: favoring cholangiocarcinoma. Patient's disease was deemed unresectable, she was also deemed not a candidate for liver transplant. She followed up with heme/onc with Dr. Myles of [facility] and started treatment with capecitabine (Xeloda). Patient had acute decline in her mental status-labs were significant for and ammonia level of 228-now is less than 10, plt 55k -dropped to 8k this a.m.- received platelet transfusion with a posttransfusion platelet count of 40K, increased LFTs which are slowly dropping, INR was 1.6 on admission-peaked at 2.0, was 1.4 this a.m. Patient underwent ERCP-found an occluded stent, this was changed out on 01/26. Cardiology also consulted as patient converted to atrial fibrillation last night. Patient states she currently wants to be a full code, did name her sister as her healthcare surrogate. Palliative care is consulted to discuss goals of care. -Patient is confused, less than yesterday per nursing -Intractable nausea/vomiting-has resolved, patient now on NG tube feeds-markedly distended abdomen and diminished bowel sounds on exam this a.m. -New findings on abdominal CT-possible transfer to tertiary care center for further evaluation and treatment -Encephalopathy-due to multiple metabolic imbalances-slowly starting to improve -For now, continue with full code and full treatment. We will follow throughout hospitalization and assist patient and family with medical decision making. (2) Intractable nausea and vomiting: (3) Severe protein-calorie malnutrition: (4) Cholangiocarcinoma: (5) Encephalopathy: Subjective Patient seen and examined in her room this a.m. patient appears uncomfortable, unable to give details causing her discomfort. Collaborated with patient's nurse as well as attending physician, Dr. Ferrera. Nursing reports patient is less confused today, appears uncomfortable with increased distended abdomen. Review of patient's lab work as well as scans- bilirubin was 0.7 on admission-steve and peaked at 1.5, this a.m. 1.1. Patient's LFTs are also slowly coming down as well as her INR. Patient's platelets were 187K on admission-dropped to 8K this a.m.-received transfusion-platelets steve to 40K. Patient's repeat blood cultures have been negative so far, she had 1 out of 2 blood cultures drawn on 01/25 positive for Clostridium ramosum. Patient's echocardiogram was grossly within normal limits. Patient CT of the abdomen concerning for new hypodense area in the liver, other findings were stable. Review of Systems Review of Systems: Unobtainable due to cognitive status Physical Exam Physical Exam: PE: Patient awake, appears uncomfortable-unable to articulate what is making her uncomfortable. HEENT: EOMI, NG tube in place, hearing within normal limits CV: Tachycardic on exam, no edema lower extremities or left upper extremity. Nursing reports right upper extremity edema stable. Respiratory: Unlabored, adequate saturations on room air, no rhonchi or rales appreciated Abdomen: Distended, tense, not rigid. Nontender with palpation. Rare bowel sounds : Vital in place, poor urine output, urine dark and tea colored. Neuro: Patient confused, was able to answer simple questions. Did reiterate that she wants to be a full code and that her sister is her healthcare surrogate. Results & Data Vital Signs (Past 12 Hours) Vital Signs Temp Pulse Pulse Resp BP BP BP 01/31/20 11:01 97.0 F L 110 H 17 117/78 01/31/20 10:59 97.3 F L 114 H 16 122/77 01/31/20 10:44 98.1 F 109 H 15 132/82 01/31/20 10:25 97.7 F 94 H 15 126/68 01/31/20 07:20 98.1 F 100 H 21 118/78 01/31/20 03:53 97.7 F 89 17 123/81 Pulse Ox 01/31/20 11:01 97 01/31/20 10:59 97 01/31/20 10:44 100 01/31/20 10:25 97 01/31/20 07:20 96 01/31/20 03:53 97 PG Care Time/CCT Total # of Minutes Spent Total Time Spent with Patient: Total time spent 40 minutes with greater than 50% of the time assessing patient's current function, reviewing recent studies and labs as well as discussing with attending physician. Coding Level of Care Code 97035 Subseq Hosp Care Lvl 3 Diagnoses Goals of care, counseling/discussion Z71.89 Intractable nausea and vomiting R11.2 Severe protein-calorie malnutrition E43 Cholangiocarcinoma C22.1 Encephalopathy G93.40 Time Spent (min) 40
--- NOTE | 2020-01-31 15:13 | Discharge Summary ---
Date of Service January 31, 2020 Admission HPI Per Admitting Provider Evelin Suarez is a 64 year old female with known intrahepatic cholangiocarcinoma who present to the ER with abdominal distension and intractable nausea. She reports she has been getting progressively worse for the last 6 weeks since starting chemotherapy but much worse for the last 2-3 days with increased abdominal distension and non-radiating bilateral back pain. She notes associated poor appetite and she hasn't been drinking or eating much in the past 2-3 days. From prior notes it appears her cholangiocarcinoma is intrahepatic irresectable and plan is for ongoing chemoradiation. No indication of biliary stent blockage given LFTs unremarkable. Principal Diagnosis Blocked bile duct stents causing cholangitis Now with possible hepatic phlegmons vs. hepatic infarcts Discharge Exam Constitutional + acute distress and + cachectic; + uncooperative Eyes EOM intact bilaterally; no conjunctival abnormality ENMT external ear and nose normal, oropharynx normal Neck trachea midline, no thyromegaly normal visual inspection Respiratory normal respiratory effort, lungs clear to auscultation + labored breathing; no respiratory distress Auscultation: + crackles Cardiovascular RRR, no murmur, no edema Rate/Rhythm: + tachycardic and + irregularly irregular Gastrointestinal (Abdomen) Inspection/Auscultation: + abdomen distended and normal bowel sounds Percussion/Palpation: + abdomen tender and abdomen soft; no guarding and abdomen not rigid Musculoskeletal no cyanosis or clubbing, extremities motor strength 5/5 Skin no rashes, warm and dry Neurologic moves all extremities and awake Psychiatric Orientation: + not alert, + not oriented to person and + uncooperative Discharge Data Allergies Allergy/AdvReac Type Severity Reaction Status Date / Time No Known Allergies Allergy Verified 01/24/20 11:07 Consultations 01/24/20 14:13 ED Decision to Admit Stat 01/25/20 15:22 Consult Palliative Care Routine 01/27/20 06:43 Consult Cardiology Routine 01/27/20 09:06 Consult Gastroenterology Routine 01/28/20 08:39 Consult Manager Science Routine 01/28/20 13:28 Consult Infectious Diseases Routine 01/28/20 13:38 Consult Nephrology Routine 01/28/20 16:00 Consult Nephrology Routine Procedures Performed Operation Date: 01/27/20 10:00 Actual Procedures p Endoscopic Retrograde Cholangiopancreatography, - Julito Haro MD s Esophagogastroduodenoscopy - Julito Haro MD Operation Date: 01/28/20 07:00 <No data on this case meets the specified criteria> Ordered Studies 01/24/20 10:43 CT abd pelvis IV con only Stat CT lumbar spine wo con Stat 01/25/20 14:30 US abdomen limited Routine 01/26/20 20:00 US abdomen limited Urgent US duplex portal hepatic veins Urgent 01/27/20 10:00 FL ERCP biliary ductal Routine 01/27/20 14:00 US abdomen ltd ascites Routine 01/27/20 17:39 CT head/brain wo con Routine 01/28/20 08:47 US point of care ultrasound Routine 01/31/20 08:45 US point of care ultrasound Routine 01/31/20 09:30 CT abd pelvis IV con only Urgent CT head/brain wo con Routine 01/31/20 10:00 US venous doppler UE RT Urgent Hospital Course (1) Cholangitis: On 01/25, she gradually became more lethargic and was AAOx1 by the evening. The morning of 01/26, she was obtunded. - Discussed case with oncology and we ran a differential with concern for acute liver failure possibly due to chemoradiation vs. her cancer. I considered sepsis, but thought to be somewhat less likely to due lack of fever or leukocytosis, and no focal findings. - Discussed with GI on 01/26 with concern for cholangitis and blocked bile duct stent. Underwent emergent ERCP on 01/26 with stent removal and replacement. Per GI, pus was noted on stent extraction. - Blood culture from 01/25 growing Clostrium ramosum -> Seen by ID with recommendation for Unasyn. - Repeat CT a/p on 01/30 showed interval development of several subcapsular hypodense foci within the liver, measuring up to 4.8 cm. These are nonspecific and may reflect phlegmon/developing abscesses or hepatic infarcts. = [facility] -> Recommend transfer to tertiary care for possible IR procedure. (2) Bacteremia: Blood cultures from 01/25 growing Clostridium ramosum. - Continue Unasyn - Repeated blood cultures on 01/28; no growth so far. - Will get speciation from [facility] today potentially. May be able to stop vancomycin if it is a likely contaminent. (3) Atrial fibrillation: Entered afib with RVR the morning of 01/26 in the setting of sepsis. Echo on 01/26 showed EF >70%, no regional wall motions issues. - Returned to sinus rhythm by the late morning of 01/26. - Cardiology consulted - Appreciate assistance. Signed off. - Metoprolol IV PRN for HR > 110 - Given acute and self-limited nature, no anticoagulation, especially in light of the concern for GI bleed and thrombocytopenia. (4) Thrombocytopenia: Platelets were 187 on admission; down as low as 26 on 01/27. Rebounded to 40 on 01/29. - Ddx includes TTP/DIC, both thought to be unlikely given no schistocytes seen on peripheral smear from 01/25. Fibrinogen was stable on 01/25 & 01/26. - HIT ruled out with negative PF4 Ab - Likely due to sepsis from her cholangitis - Platelets down to 8 on 01/30 -> Given 1 unit platelets and up to [address] head showed no spontaneous bleed. No other signs of bleeding. (5) Intractable nausea and vomiting: Suspect chemotherapy-induced vs. from her cancer. Abdominal u/s on 01/24 showed only small ascites that was likely not amenable to paracentesis. Discussed with Dr. Myles who feels diagnostic paracentesis not needed as reaction to chemo-radiation is likely explanation. - Hold capecitabine & radiation at this time. Held since admission. (6) Acute hyponatremia: Likely due to both hypovolemia and SIADH. Urine osms were ~1000 pointing to some element of SIADH. Cortisol > 150, so adrenal insuffic. ruled out. - Na up to 151 on 01/30 due to free fluid restriction. - Monitor (7) Abdominal ascites: Secondary to underlying cancer versus chemoradiation. LFTs stable. Possible hyponatremia due to liver failure, although her overall fluid status does not appear to be hypervolemic. - U/s abdomen on 01/24 showed small ascites; not really amenable to paracente sis. - Unable to do the paracentesis on 01/26 or 01/27 due to too small a fluid pocket for safe tap. (8) Cholangiocarcinoma: Irresectable intrahepatic cholangiocarcinoma. - Hold capecitabine & radiation. (9) Severe protein-calorie malnutrition: Consulted intervention teacher for advice regarding supplementation. (10) GERD (gastroesophageal reflux disease): - H2 kentrell PRN (11) DVT prophylaxis: SCDs - Holding heparin for bleeding, anemia, and thromboyctopenia. Total Time Total Time Spent Total Time Spent (In Minutes): 50 Discharge Plan Discharge Items Patient Disposition: Transfer Acute Care Hospital Reason For Visit: INTRACTABLE NAUSEA AND VOMTING Discharge Diagnosis: Blocked blocked bile duct stents with cholangitis. Now with possible hepatic phlegmon Activity: Resume your previous activity Non-emergency contact: Primary Care Provider, Cupola Tapper Helper and Oncologist Call non-emergency contact if: your symptoms worsen Follow-up/Referrals: PT,DECLINED [Primary Care Provider] - Diet: Nothing by Mouth Addtl Attending Provider Instructions: Admitted with general nausea and vomiting. On 01/25, she gradually became more lethargic and was AAOx1 by the evening. The morning of 01/26, she was obtunded. Found to have blocked biliary stents. On 01/26, these were exchanged by GI. Mental status has slowly improved as have her LFTs and other labs. However, on 01/30, her platelets unexpectedly dropped to 8. No signs of bleeding. Repeat CT a/p was done which shows possible liver phlegmon with biggest at 5 cm. Plan to transfer to tertiary care center. Pending Studies at Discharge: No Stand-Alone Forms: [facility] Skilled Items Patient informed of condition?: Yes DNR: No Discharge Level of Care: Other Communicable Disease: No Discharge Prognosis: Deteriorating Lines: US Guided Peripheral IV Urinary Catheter: Yes Medications and DC Order Prescriptions: Continued vitamin B complex [B Complex-Vitamin B12] Tablet 1 tab PO DAILY RF: 0 ondansetron HCl [Zofran] 8 mg tablet 8 mg PO Q8H RF: 0 ascorbic acid (vitamin C) [Vitamin C] 1,000 mg Tablet 1,000 mg PO HS RF: 0 vitamin E 400 unit Capsule 400 unit PO HS RF: 0 Discontinued hyoscyamine sulfate [Levsin] 0.125 mg tablet 0.125 mg PO QID PRN (Reason: dyspepsia) RF: 0 capecitabine [Xeloda] 500 mg tablet 1,000 mg PO BID RF: 0 capecitabine [Xeloda] 150 mg tablet 150 mg PO BID RF: 0 aspirin 81 mg Tablet,Delayed Release (Dr/Ec) 81 mg PO HS RF: 0 dicyclomine 10 mg Capsule 10 mg PO DAILY PRN (Reason: Pain) RF: 0 atenolol 50 mg Tablet 50 mg PO HS RF: 0 Discharge Orders: Discharge Order (Routine); Ordered 01/31/20 Ordered By: Honorio Ferrera Admission Data Admit Date/Time: 01/24/20 16:03 Attending Provider: Honorio Ferrera Admit Provider: Yan Angeles Primary Care Provider: TERESE AGOSTO Other Providers: Honorio Ferrera ; Yan Angeles ; Lena Vale ; Alexi Salinas ; Julito Haro ; Harrison Bacon ; Otilia Mcwilliams ; Des Gonzalez ; Fatuma Pearson Coding Level of Care Code D/C Day Management >30 mins Diagnoses Cholangitis K83.09 Bacteremia R78.81 Atrial fibrillation I48.91 Thrombocytopenia D69.6 Intractable nausea and vomiting R11.2 Acute hyponatremia E87.1 Abdominal ascites R18.8 Ascites type: other type Cholangiocarcinoma C22.1 Severe protein-calorie malnutrition E43 GERD (gastroesophageal reflux disease) K21.9 DVT prophylaxis Z29.9
[2020-01-31 15:42] VITALS: TEMP 97.5; O2SAT 98
[2020-01-31 16:49] VITALS: BP 118/78
[2020-01-31] MEDS ORDERED: AMPICILLIN/SULBACTAM SOD 3,000 MG in DEXTROSE 5% 100 ML IV SCH (17:00)
[2020-01-31 18:50] VITALS: PULSE 111
== END 2020-01-31 17:14 | disposition short-term general hospital (02) | DRG 919 ==
LOC: ED 10:26 → 2W 16:03 → SUATTDRO 16:03 → 2W 16:20 → 1E 01-27 15:11 → 2S 01-30 09:02